=== PATIENT | female | born 1955 | race Caucasian/White ===

== ENCOUNTER → 2018-03-28 07:52 | Outpatient (CLI) | payer BC, SELFPAY ==
[2018-03-28 08:42] LABS: Alanine Aminotransferase 34 IU/L (9-52); Albumin 4.5 g/dL (3.5-5.0); Albumin Globulin Ratio 1.3 (1.0-2.8); Alkaline Phosphatase 76 U/L (38-126); Aspartate Aminotransferase 35 IU/L (14-36); BUN Creatinine Ratio 26.3 (6-22); Bilirubin Total 0.5 mg/dL (0.2-1.3); Blood Urea Nitrogen 21 mg/dL (7-17); Calcium 9.5 mg/dL (8.4-10.2); Carbon Dioxide 30 mmol/L (22-32); Chloride 103 mmol/L (98-107); Cholesterol 209 mg/dL (140-199); Estimated Glomerular Filt Rate > 60.0 mL/min (>60); Globulin 3.4 g/dL (1.7-4.1); Glucose 92 mg/dL (80-110); HDL Cholesterol 66 mg/dL (40-60); HEMOLYSIS < 15 (0-50); LDL Cholesterol Calculated 115 mg/dL (<100); Potassium 4.3 mmol/L (3.4-5.1); Sodium 141 mmol/L (137-145); Total Protein 7.9 g/dL (6.3-8.2); Triglycerides 138 mg/dL (35-150)
[2018-03-28 09:03] LABS: Vitamin D 25 Hydroxy (D3) 32.8 ng/mL (30.0-100.0)
== END ==
PROVIDERS: PCP Internal Medicine; Visit Provider Internal Medicine
DX: E55.9 Vitamin D deficiency, unspecified (principal); E78.5 Hyperlipidemia, unspecified; I10 Essential (primary) hypertension
CPT/HCPCS: 36415; 80053; 80061; 82306

== ENCOUNTER → 2018-04-30 09:28 | Outpatient (CLI) | payer BC, SELFPAY ==
--- NOTE | 2018-04-30 | DI.MG.S_ITS ---
BILATERAL DIGITAL SCREENING MAMMOGRAM 3D/2D WITH CAD: 04/30/2018 CLINICAL: Routine screening. Family history of breast cancer. Comparison is made to exams dated: 04/24/2017 mammogram, 04/18/2016 mammogram, and 04/13/2015 mammogram - [facility]. The tissue of both breasts is heterogeneously dense. This may lower the sensitivity of mammography. Current study was also evaluated with a Computer Aided Detection (CAD) system. There are benign calcifications in both breasts. There also are biopsy clips in the left breast. There is a mole marker on the right breast. No significant masses, calcifications, or other findings are seen in either breast. There has been no significant interval change. IMPRESSION: BENIGN There is no mammographic evidence of malignancy. A 1 year screening mammogram is recommended. This exam was interpreted at Station ID: [id number]. NOTE: For mammograms, a report in lay terms will be sent to the patient. Approximately 15% of breast malignancies will not be visualized mammographically. In the management of a palpable breast mass, a negative mammogram must not discourage biopsy of a clinically suspicious lesion. Electronically Signed By: Jasbir zhao/randall:05/02/2018 02:03:18 copy to: Dario Loving letter sent: Normal Exam ACR BI-RADS Category 2: Benign Finding(s) 3342F
== END ==
PROVIDERS: PCP Internal Medicine
DX: Z12.31 Encounter for screening mammogram for malignant neoplasm of breast (principal); Z80.3 Family history of malignant neoplasm of breast
CPT/HCPCS: 77063; 77067

== ENCOUNTER → 2018-09-05 14:05 | Outpatient (CLI) | payer BC, SELFPAY ==
[2018-09-05 15:13] LABS: Add Manual Diff / Slide Review NO; Basophils Absolute Auto 100 /uL (0-100); Basophils Percent Auto 1.1 % (0-2); Eosinophils Absolute Auto 100 /uL (0-450); Eosinophils Percent Auto 1.2 % (2-4); Hematocrit 45.2 % (36-46); Lymphocytes Absolute Auto 3300 /uL (1100-4500); Lymphocytes Percent Auto 38.7 % (25-40); Mean Corpuscular HGB Conc 33.3 % (30-36); Mean Corpuscular Hemoglobin 29.7 PG (26-34); Mean Corpuscular Volume 89.3 fL (80-100); Monocytes Absolute Auto 900 /uL (0-900); Monocytes Percent Auto 10.2 % (3-14); Neutrophils Absolute Auto 4100 /uL (1500-7000); Neutrophils Percent Auto 48.8 % (50-75); Platelet Count 298 X10^3/uL (150-400); Red Blood Cell Count 5.06 X10^6/uL (4.0-5.2); White Blood Cell Count 8.5 X10^3/uL (4.5-11.0)
[2018-09-05 15:27] LABS: Erythrocyte Sedimentation Rate 7 MM/HR (0-20)
[2018-09-05 16:18] LABS: Alanine Aminotransferase 41 IU/L (9-52); Albumin Globulin Ratio 1.3 (1.0-2.8); Alkaline Phosphatase 84 U/L (38-126); Aspartate Aminotransferase 32 IU/L (14-36); BUN Creatinine Ratio 22.5 (6-22); Bilirubin Total 0.4 mg/dL (0.2-1.3); Blood Urea Nitrogen 18 mg/dL (7-17); Calcium 10.1 mg/dL (8.4-10.2); Carbon Dioxide 26 mmol/L (22-32); Chloride 102 mmol/L (98-107); Estimated Glomerular Filt Rate > 60.0 mL/min (>60); Globulin 3.8 g/dL (1.7-4.1); Glucose 83 mg/dL (80-110); HEMOLYSIS < 15 (0-50); Potassium 4.4 mmol/L (3.4-5.1); Sodium 143 mmol/L (137-145); Total Protein 8.8 g/dL (6.3-8.2)
[2018-09-05 16:19] LABS: C-Reactive Protein Quant < 0.5 mg/dL (<1.0)
== END ==
PROVIDERS: PCP Internal Medicine; Visit Provider Internal Medicine
DX: R47.81 Slurred speech (principal); R51 Headache
CPT/HCPCS: 36415; 80053; 85025; 85651; 86140

== ENCOUNTER → 2018-09-08 11:11 | Outpatient (CLI) | payer BC, SELFPAY ==
--- NOTE | 2018-09-08 11:13 | DI.MRI.S_ITS ---
PROCEDURE: MR STROKE Pre- and post-contrast brain MRI, non-contrast brain MR angiogram, pre- and postcontrast neck MR angiogram INDICATIONS: slurred speech/headache TECHNIQUE: Brain: Noncontrast axial T1 spin echo, axial T2 fast spin echo, sagittal and axial FLAIR, coronal T2 fast spin echo, axial gradient echo, axial diffusion and ADC through the brain. After the administration of contrast, axial 3D VIBE of the cranial vasculature and brain. Brain MRA: Non-contrast 3-D time of flight MR angiogram, with multiple xefiwnb-uoumhoepf-ibqswogzpt (MIP) reformats performed. Neck MRA: Axial and sagittal TruFISP through the neck. Coronal dynamic MR angiogram during administration of contrast in the arterial and venous phases, with 3-dimenstional pfkdiaz-grnfbqufx-dsfaaygobm (MIP) reformats constructed from subtraction images. COMPARISON: None. FINDINGS: Image quality: Mildly degraded anteriorly by patient metal artifact in the facial area, possibly dental artifact. BRAIN: CSF spaces: Ventricles are normal in size and shape. Basal cisterns are patent. No extra-axial fluid collections. Brain: No intracranial bleeds or mass effects. Durant-white matter interface is normal. Diffusion weighted images show no acute ischemic insults. Brainstem appears normal. Normal intravascular flow voids are present. No abnormal intracranial enhancement. Mild microvascular atherosclerotic change noted in the deep white matter. Skull and face: Calvarial marrow signal is normal. Orbits appear normal. Sinuses: Sinuses and mastoids are clear. BRAIN MR ANGIOGRAM: Anterior circulation: Intracranial internal carotid arteries are normal in size and enhancement. The flow within the paired anterior cerebral arteries is normal and symmetric. The flow within the middle cerebral arteries is normal and symmetric. The anterior communicating artery is seen. No stenoses, occlusions, or aneurysms. Posterior circulation: The visualized portions of the vertebral arteries demonstrate normal caliber, and join to form a normal appearing basilar artery. The flow within the posterior cerebral arteries is normal and symmetric. No stenoses, occlusions, or aneurysms. NECK MR ANGIOGRAM: Carotids: Great vessels demonstrate a conventional anatomy as they arise from the aortic arch. The origins of the common carotid arteries appear patent. The calibers and courses of both common carotid arteries are normal. The bifurcation regions appear normal bilaterally. The internal carotid arteries demonstrate normal course and caliber. Posterior circulation: The origins of the vertebral arteries appear patent. More superior portions of both vertebral arteries demonstrate normal course and caliber, and join to form a normal appearing basilar artery. Miscellaneous: Subclavian arteries appear patent. Pre-contrast images through the neck show no soft tissue abnormalities. IMPRESSION: BRAIN MRI: Mild metal artifact degrades anterior visualization, but the study is diagnostic. There is only quite mild microvascular atherosclerotic change in the deep white matter, age-appropriate. No hemorrhage or acute/subacute ischemic injury is seen. BRAIN MR ANGIOGRAM: Normal intracranial MR angiogram. NECK MR ANGIOGRAM: Normal cervical MR angiogram. Dictated by: Jim Choi M.D. on 09/08/2018 at 12:49 Approved by: Jim Choi M.D. on 09/08/2018 at 12:51
== END ==
PROVIDERS: PCP Internal Medicine; Visit Provider Internal Medicine
DX: R47.81 Slurred speech (principal); R51 Headache
CPT/HCPCS: 70553

== ENCOUNTER → 2018-09-09 10:07 | Outpatient (CLI) | payer BC, SELFPAY ==
--- NOTE | 2018-09-09 10:10 | DI.US.S_ITS ---
PROCEDURE: US CAROTID DOPPLER BI INDICATIONS: SLURRED SPEECH, HEADACHE TECHNIQUE: Color and pulse Doppler interrogation was performed of both carotid systems, with image documentation and velocity measurements. COMPARISON: [facility], MR, MR STROKE, 09/08/2018, 11:48. FINDINGS: Stenosis calculations are based on SRU (Society of Radiologists in Ultrasound) criteria. Right side: Brachial blood pressure: 156/101 mm Hg. Common carotid artery peak systolic velocity: 66 cm/sec. Internal carotid artery peak systolic velocity: 74 cm/sec. Internal carotid artery end diastolic velocity: 29 cm/sec. External carotid artery peak systolic velocity: 73 cm/sec. ICA/CCA peak systolic ratio: 1.12. Durant scale imaging description: Minimal plaques Percent internal carotid artery stenosis: Less than 50%. Vertebral artery: Flow direction is antegrade. Left side: Brachial blood pressure: 129/85 mm Hg. Common carotid artery peak systolic velocity: 80 cm/sec. Internal carotid artery peak systolic velocity: 64 cm/sec. Internal carotid artery end diastolic velocity: 25 cm/sec. External carotid artery peak systolic velocity: 73 cm/sec. ICA/CCA peak systolic ratio: 0.81. Durant scale imaging description: Mild plaquing Percent internal carotid artery stenosis: Less than 50%. Vertebral artery: Not visualized. IMPRESSION: 1. Less than 50% internal carotid artery stenosis bilaterally. 2. Antegrade right vertebral artery flow. 3. The left vertebral artery is not visualized. Dictated by: Gabriella Linton M.D. on 09/09/2018 at 12:31 Approved by: Gabriella Linton M.D. on 09/09/2018 at 12:33
== END ==
PROVIDERS: PCP Internal Medicine; Visit Provider Internal Medicine
DX: I65.23 Occlusion and stenosis of bilateral carotid arteries (principal); R47.81 Slurred speech; R51 Headache
CPT/HCPCS: 93880

== ENCOUNTER → 2018-10-23 09:46 | Outpatient (CLI) | payer BC, SELFPAY ==
[2018-10-23 10:10] LABS: Hematocrit 43.5 % (36-46); Hemoglobin 14.4 g/dL (12.0-16.0); Mean Corpuscular HGB Conc 33.2 % (30-36); Mean Corpuscular Volume 90.4 fL (80-100); Platelet Count 335 X10^3/uL (150-400); Red Blood Cell Count 4.82 X10^6/uL (4.0-5.2); Red Cell Distribution Width 13.9 % (11.6-14.8)
[2018-10-23 10:14] LABS: Add Manual Diff / Slide Review YES
[2018-10-23 10:17] LABS: Prothrombin Time 11.1 SECONDS (10.1-12.7)
[2018-10-23 10:20] LABS: PTT Partial Thromboplastin Tim 28 SECONDS (26.4-36.2)
[2018-10-23 10:37] LABS: Neutrophils Absolute Manual 7800 /uL (3000-5900); Total Cells Counted 100
[2018-10-23 10:38] LABS: RBC Morphology Normal Morphology
== END ==
PROVIDERS: Family Provider Internal Medicine; PCP Internal Medicine; Visit Provider Psychiatry & Neurology Neurology
DX: K14.8 Other diseases of tongue (principal); R47.1 Dysarthria and anarthria; R51 Headache
CPT/HCPCS: 36415; 85025; 85610; 85730

== ENCOUNTER 2018-10-24 08:51 | Day surgery (SDC) | payer BC, SELFPAY ==
[2018-10-24] VITALS (9 sets, daily range): BP systolic 135–166; BP diastolic 78–100; PULSE 69–99; RESP 15–167; TEMP 36.5–37.1; O2SAT 95–99; BMI 24.3
--- NOTE | 2018-10-24 | DI.RAD.S_ITS ---
PROCEDURE: FL GUIDED LUMBAR PUNCTURE LP INDICATIONS: ... TECHNIQUE: The indications, alternatives, benefits, risks, and complications were explained to the patient. Written informed consent was obtained and placed in the chart. The patient was placed in a prone position on the fluoroscopy table, and a level was chosen for percutaneous access under fluoroscopic guidance. The site was prepped and draped in a sterile fashion. After local anaesthetic, a spinal needle was then used to enter the intrathecal space, with return of cerebrospinal fluid. After obtaining sufficient fluid, the needle was then withdrawn, and a bandage applied to the puncture site. FINDINGS: Puncture level: Right interlaminar notch L3-4 Needle: Spinal needle. Opening pressure: Not requested. CSF volume and description: 4 separate aliquots obtained, clear. Medications: 1% lidocaine for anaesthesia. Complications: None. Laboratories: As ordered by referring clinician. IMPRESSION: Successful fluoroscopically guided lumbar puncture. Dictated by: Jim Choi M.D. on 10/24/2018 at 14:27 Approved by: Jim Choi M.D. on 10/24/2018 at 14:28
--- NOTE | 2018-10-24 11:08 | SUR.PHASEII ---
Pt denied any new or worsening pain. Bandaid cdi. Denied nausea or vomiting. Call light within reach. Po intake provided.
[2018-10-24] MEDS: CODEINE/ACETAMINOPHEN 30/300 TABLET 1 TAB PO (11:14)
[2018-10-24 12:06] LABS: Glucose CSF 56 mg/dL (40-70); Total Protein CSF 53 mg/dL (12-60)
[2018-10-24 13:01] LABS: Appearance CSF CLEAR (Clear); CSF Tube Number 2; CSF Tube Volume 0.75 mL; Color CSF COLORLESS (Colorless); Red Blood Cell CSF 0 RBC /uL; White Blood Cell CSF 0 MONO/uL (0-5)
[2018-10-24 13:25] LABS: Enterovirus Not Detected (Not Detect); Escherichia coli K1 Not Detected (Not Detect); Herpes simplex virus 1 Not Detected (Not Detect); Herpes simplex virus 2 Not Detected (Not Detect); Human herpesvirus 6 Not Detected (Not Detect); Streptococcus pneumoniae Not Detected (Not Detect)
[2018-10-24 13:26] LABS: Cryptococcus neoformans/gattii Not Detected (Not Detect); Haemophilus influenzae Not Detected (Not Detect); Human parechovirus Not Detected (Not Detect); Listeria monocytogenes Not Detected (Not Detect); Neisseria meningitidis Not Detected (Not Detect); Streptococcus agalactiae Not Detected (Not Detect); Varicella Zoster Virus Not Detected
--- NOTE | 2018-10-24 15:19 | SUR.PHASEII ---
[facility] Pt denied any new pain or unusual symptoms. IV d/c'd. VS stable. Pt ambulated to bathroom, sba. Gait steady.
== END 2018-10-24 13:05 | disposition home or self-care (01) ==
PROVIDERS: PCP Internal Medicine; Visit Provider Psychiatry & Neurology Neurology
PROC: 009U3ZZ Drainage of Spinal Canal, Percutaneous Approach (ICD-10-PCS; principal; 2018-10-24 10:00)
DX: R51 Headache (principal); R47.1 Dysarthria and anarthria; K14.8 Other diseases of tongue
CPT/HCPCS: 62270; 76000; 82945; 84157; 86592; 87070; 87205; 87798; 87801; 89051

== ENCOUNTER → 2018-12-08 09:07 | Outpatient (CLI) | payer BC, SELFPAY ==
[2018-12-08 10:44] LABS: Estimated Glomerular Filt Rate > 60.0 mL/min (>60)
== END ==
PROVIDERS: Family Provider Internal Medicine; PCP Internal Medicine; Visit Provider Physician Assistant Surgical
DX: J39.2 Other diseases of pharynx (principal)
CPT/HCPCS: 36415; 82565

== ENCOUNTER → 2019-03-06 12:06 | Outpatient (CLI) | payer BC, SELFPAY ==
[2019-03-06 12:39] LABS: Bilirubin Urine UA NEGATIVE (NEGATIVE); Glucose Urine UA TRACE g/dL (Negative); Ketones Urine UA NEGATIVE (NEGATIVE); Leukocyte Esterase Urine UA 2+ (NEGATIVE); Nitrite Urine UA POSITIVE (Negative); Occult Blood Urine UA TRACE-INTACT (Negative); Protein Urine UA 1+ (Negative); Specific Gravity Urine UA 1.015 (1.000-1.035)
[2019-03-06 13:07] LABS: Appearance Urine UA Cloudy
[2019-03-06 13:08] LABS: Color Urine UA ORANGE
[2019-03-06 13:09] LABS: Bacteria Urine Few (2-10); Culture Indicated Urine Specimen Cultured; RBC Urine 1-5/HPF (0-5/HPF); Squamous Epithelial Cell Urine 1-5 /HPF (0-5/HPF); WBC Urine 10-30/HPF (0-5/HPF)
== END ==
PROVIDERS: PCP Internal Medicine; Visit Provider Internal Medicine
DX: R39.89 Other symptoms and signs involving the genitourinary system (principal)
CPT/HCPCS: 81001; 87077; 87086; 87186

== ENCOUNTER → 2019-06-03 10:55 | Outpatient (CLI) | payer BC, SELFPAY ==
--- NOTE | 2019-06-03 | DI.MG.S_ITS ---
BILATERAL DIGITAL SCREENING MAMMOGRAM 3D/2D WITH CAD: 06/03/2019 CLINICAL: Routine screening. Family history of breast cancer. Comparison is made to exams dated: 04/30/2018 mammogram, 04/24/2017 mammogram, 04/18/2016 mammogram, and 04/13/2015 mammogram - [facility]. The tissue of both breasts is heterogeneously dense. This may lower the sensitivity of mammography. Current study was also evaluated with a Computer Aided Detection (CAD) system. There are linear scar markers overlying the left breast. There are circular mole markers overlying the left breast. Biopsy/surgical clips are present in the left breast. There is an irregular asymmetry in the right breast anterior depth central to the nipple seen on the craniocaudal view only. There is an irregular asymmetry in the right breast posterior depth medial region seen on the craniocaudal view only. There is an irregular asymmetry in the left breast middle depth lateral region seen on the craniocaudal view only. IMPRESSION: INCOMPLETE: NEEDS ADDITIONAL IMAGING EVALUATION The irregular asymmetry in the right breast anterior depth central to the nipple seen on the craniocaudal view only is indeterminate. Additional views with possible ultrasound are recommended. The irregular asymmetry in the right breast posterior depth medial region seen on the craniocaudal view only is indeterminate. Additional views with possible ultrasound are recommended. The irregular asymmetry in the left breast middle depth lateral region seen on the craniocaudal view only is indeterminate. Additional views with possible ultrasound are recommended. This exam was interpreted at Station ID: [id number]. NOTE: For mammograms, a report in lay terms will be sent to the patient. Approximately 15% of breast malignancies will not be visualized mammographically. In the management of a palpable breast mass, a negative mammogram must not discourage biopsy of a clinically suspicious lesion. Electronically Signed By: Jasbir Atkinson M.D. ecl/:06/03/2019 13:12:33 copy to: Dario Loving copy to: Nando Damon letter sent: Additional Imaging Needed ACR BI-RADS Category 0: Incomplete 3340F
== END ==
PROVIDERS: PCP Internal Medicine; Visit Provider Student in an Organized Health Care Education/Training Program
DX: Z12.31 Encounter for screening mammogram for malignant neoplasm of breast (principal); Z80.3 Family history of malignant neoplasm of breast
CPT/HCPCS: 77063; 77067

== ENCOUNTER → 2019-06-29 08:38 | Outpatient (CLI) | payer BC, SELFPAY ==
--- NOTE | 2019-06-29 08:38 | DI.MG.S_ITS ---
BILATERAL DIGITAL DIAGNOSTIC MAMMOGRAM 3D/2D WITH ADDITIONAL VIEWS: 06/29/2019 CLINICAL: Additional evaluation requested from prior study. Comparison is made to exams dated: 06/03/2019 mammogram, 04/30/2018 mammogram, and 04/24/2017 mammogram - [facility]. The tissue of both breasts is heterogeneously dense. This may lower the sensitivity of mammography. Previously noted irregular asymmetry in the right breast anterior depth central to the nipple seen on the craniocaudal view only on comparison screening mammogram of 06/03/19 has the appearance of benign fibroglandular tissues on additional views. Previously noted irregular asymmetry in the right breast posterior depth medial region seen on the craniocaudal view only on comparison screening mammogram of 06/03/19 has the appearance of benign fibroglandular tissues on additional views. Previously noted irregular asymmetry in the left breast middle depth lateral region seen on the craniocaudal view only on comparison screening mammogram of 06/03/19 has the appearance of benign fibroglandular tissues on additional views. A linear scar marker overlies the left breast. Surgical/biopsy clips are identified in the left breast. IMPRESSION: INCOMPLETE: NEEDS ADDITIONAL IMAGING EVALUATION Previously noted irregular asymmetry in the right breast anterior depth central to the nipple seen on the craniocaudal view only on comparison screening mammogram of 06/03/19 has the appearance of benign fibroglandular tissues on additional views. A targeted ultrasound is recommended and will be performed immediately following this exam. Previously noted irregular asymmetry in the right breast posterior depth medial region seen on the craniocaudal view only on comparison screening mammogram of 06/03/19 has the appearance of benign fibroglandular tissues on additional views. A targeted ultrasound is recommended and will be performed immediately following this exam. Previously noted irregular asymmetry in the left breast middle depth lateral region seen on the craniocaudal view only on comparison screening mammogram of 06/03/19 has the appearance of benign fibroglandular tissues on additional views. A targeted ultrasound is recommended and will be performed immediately following this exam. This exam was interpreted at Station ID: [id number]. NOTE: For mammograms, a report in lay terms will be sent to the patient. Approximately 15% of breast malignancies will not be visualized mammographically. In the management of a palpable breast mass, a negative mammogram must not discourage biopsy of a clinically suspicious lesion. Electronically Signed By: Jasbir Atkinson M.D. ecl/:06/29/2019 13:12:15 copy to: Dario Loving ACR BI-RADS Category 0: Incomplete 3340F
--- NOTE | 2019-06-29 08:38 | DI.US.S_ITS ---
LIMITED ULTRASOUND OF RIGHT BREAST: 06/29/2019 CLINICAL: Patient returns today to evaluate asymmetries in the right breast. Comparison is made to exams dated: 06/29/2019 mammogram, 06/03/2019 mammogram, 04/30/2018 mammogram, 04/24/2017 mammogram, and 04/18/2016 mammogram - [facility]. Color flow and real-time ultrasound of the medial and lateral right breast including four quadrants were performed. Durant scale images of the real-time examination were reviewed. No underlying breast mass or abnormality is identified. There is no ultrasound correlate for the previously noted irregular asymmetry in the right breast anterior depth central to the nipple seen on the craniocaudal view only on comparison screening mammogram of 06/03/19, which also resolved and had the appearance of benign fibroglandular tissues on additional diagnostic mammogram views performed earlier today 06/29/19. There is no ultrasound correlate for the previously noted irregular asymmetry in the right breast posterior depth medial region seen on the craniocaudal view only on comparison screening mammogram of 06/03/19, which also resolved and had the appearance of benign fibroglandular tissues on additional diagnostic mammogram views performed earlier today 06/29/19. IMPRESSION: NEGATIVE There is no sonographic evidence of malignancy in the imaged areas of the right breast. Return to annual screening mammography schedule is recommended. The patient is advised to monitor her breasts and to return sooner for re-evaluation should she feel anything grow or change. This exam was interpreted at Station ID: [id number]. Electronically Signed By: Jasbir Atkinson M.D. ecl/:06/29/2019 14:04:33 copy to: Dario Loving letter sent: Normal Exam Ultrasound BI-RADS: 1 Negative
--- NOTE | 2019-06-29 08:38 | DI.US.S_ITS ---
LIMITED ULTRASOUND OF LEFT BREAST: 06/29/2019 CLINICAL: Patient returns today to evaluate an asymmetry in the left breast. Comparison is made to exams dated: 06/29/2019 mammogram, 06/03/2019 mammogram, 04/30/2018 mammogram, and 04/24/2017 mammogram - [facility]. Color flow and real-time ultrasound of the left breast 2-4 o'clock region were performed. Durant scale images of the real-time examination were reviewed. No underlying breast mass or abnormality is identified. There is no ultrasound correlate for the previously noted asymmetry in the left breast middle depth lateral region seen on the craniocaudal view only on comparison screening mammogram of 06/03/19 which resolved and had the appearance of benign fibroglandular tissues on additional views performed earlier today 06/29/19. IMPRESSION: NEGATIVE There is no sonographic evidence of malignancy in the imaged areas of the lateral left breast. Return to annual screening mammography schedule is recommended. The patient is advised to monitor her breasts and to return sooner for re-evaluation should she feel anything grow or change. This exam was interpreted at Station ID: [id number]. Electronically Signed By: Jasbir Atkinson M.D. ecl/:06/29/2019 14:06:38 copy to: Dario Loving letter sent: Normal Exam Ultrasound BI-RADS: 1 Negative
== END ==
PROVIDERS: PCP Internal Medicine; Visit Provider Internal Medicine
DX: R92.8 Other abnormal and inconclusive findings on diagnostic imaging of breast (principal); N64.89 Other specified disorders of breast
CPT/HCPCS: 76642; 77066; G0279

== ENCOUNTER → 2020-03-21 11:07 | Outpatient (CLI) | payer BC, SELFPAY | PROVIDERS: PCP Internal Medicine; Visit Provider Registered Nurse Diabetes Educator | DX: R30.0 Dysuria (principal) | CPT/HCPCS: 87077; 87086; 87186 ==

== ENCOUNTER → 2020-06-30 07:37 | Outpatient (CLI) | payer MEDICARE, SELFPAY ==
[2020-06-30 10:10] LABS: Alanine Aminotransferase 31 IU/L (<35); Albumin 4.4 g/dL (3.5-5.0); Albumin Globulin Ratio 1.4 (1.0-2.8); Alkaline Phosphatase 81 U/L (38-126); Aspartate Aminotransferase 33 IU/L (14-36); BUN Creatinine Ratio 22.4 (6-22); Bilirubin Total 0.6 mg/dL (0.2-1.3); Blood Urea Nitrogen 17 mg/dL (7-17); Calcium 9.7 mg/dL (8.4-10.2); Carbon Dioxide 31 mmol/L (22-32); Chloride 105 mmol/L (98-107); Cholesterol 180 mg/dL (140-199); Estimated Glomerular Filt Rate > 60.0 mL/min (>60); Globulin 3.2 g/dL (1.7-4.1); Glucose 90 mg/dL (80-110); HDL Cholesterol 49 mg/dL (40-60); HEMOLYSIS < 15 (0-50); LDL Cholesterol Calculated 91 mg/dL (<100); Potassium 4.6 mmol/L (3.4-5.1); Sodium 140 mmol/L (137-145); Total Protein 7.6 g/dL (6.3-8.2); Triglycerides 198 mg/dL (35-150)
[2020-06-30 10:22] LABS: Free T4, Direct Thyroxine 0.89 ng/dL (0.78-2.19); Vitamin D 25 Hydroxy (D3) 36.6 ng/mL (30.0-100.0)
[2020-06-30 10:36] LABS: Thyroid Stimulating Hormone 1.17 uIU/mL (0.47-4.68)
== END ==
PROVIDERS: PCP Internal Medicine; Referring Provider Internal Medicine; Visit Provider Internal Medicine
DX: E03.9 Hypothyroidism, unspecified (principal); E55.9 Vitamin D deficiency, unspecified; E78.5 Hyperlipidemia, unspecified; G52.3 Disorders of hypoglossal nerve; I10 Essential (primary) hypertension
CPT/HCPCS: 36415; 80053; 80061; 82306; 84439; 84443

== ENCOUNTER → 2020-07-01 11:06 | Outpatient (CLI) | payer MEDICARE, SELFPAY ==
--- NOTE | 2020-07-01 | DI.MG.S_ITS ---
BILATERAL DIGITAL SCREENING MAMMOGRAM 3D/2D WITH CAD: 07/01/2020 CLINICAL: Routine screening. Family history of breast cancer. Comparison is made to exams dated: 06/29/2019 mammogram, 06/03/2019 mammogram, and 04/30/2018 mammogram - [facility]. The tissue of both breasts is heterogeneously dense. This may lower the sensitivity of mammography. Current study was also evaluated with a Computer Aided Detection (CAD) system. No significant masses, calcifications, or other findings are seen in either breast. There has been no significant interval change. IMPRESSION: NEGATIVE There is no mammographic evidence of malignancy. A 1 year screening mammogram is recommended. This exam was interpreted at Station ID: [id number]. NOTE: For mammograms, a report in lay terms will be sent to the patient. Approximately 15% of breast malignancies will not be visualized mammographically. In the management of a palpable breast mass, a negative mammogram must not discourage biopsy of a clinically suspicious lesion. Electronically Signed By: Lissette graham/randall:07/01/2020 13:18:22 copy to: Dario Loving letter sent: Normal Exam ACR BI-RADS Category 1: Negative 3341F
== END ==
PROVIDERS: PCP Internal Medicine; Referring Provider Internal Medicine; Visit Provider Internal Medicine
DX: Z12.31 Encounter for screening mammogram for malignant neoplasm of breast (principal)
CPT/HCPCS: 77063; 77067

== ENCOUNTER → 2020-07-05 11:45 | Outpatient (CLI) | payer MEDICARE, SELFPAY ==
[2020-07-05 12:16] LABS: Bacteria Urine None Seen; RBC Urine None Seen (0-5/HPF)
[2020-07-05 16:53] LABS: Appearance Urine UA CLEAR; Bilirubin Urine UA NEGATIVE (NEGATIVE); Color Urine UA YELLOW; Glucose Urine UA NEGATIVE (Negative); Ketones Urine UA NEGATIVE (NEGATIVE); Leukocyte Esterase Urine UA NEGATIVE (NEGATIVE); Nitrite Urine UA NEGATIVE (Negative); Occult Blood Urine UA NEGATIVE (Negative); Protein Urine UA NEGATIVE (Negative); Specific Gravity Urine UA 1.015 (1.000-1.035); Urobilinogen Urine UA 0.2 E.U./dL (0.2)
[2020-07-05 17:02] LABS: Culture Indicated Urine Cult Not Indicated; Mucus Urine 1+ (Negative); Squamous Epithelial Cell Urine 0-1 /HPF (0-5/HPF); WBC Urine 0-1/HPF (0-5/HPF)
== END ==
PROVIDERS: PCP Internal Medicine; Referring Provider Internal Medicine; Visit Provider Internal Medicine
DX: R30.0 Dysuria (principal)
CPT/HCPCS: 81001

== ENCOUNTER → 2020-08-17 10:31 | Outpatient (CLI) | payer MEDICARE, SELFPAY | PROVIDERS: PCP Internal Medicine; Visit Provider Nurse Practitioner | DX: N39.0 Urinary tract infection, site not specified (principal) | CPT/HCPCS: 87086 ==

== ENCOUNTER → 2020-09-23 10:30 | Outpatient (CLI) | payer MEDICARE, SELFPAY ==
[2020-09-23] MEDS: COVID-19 VACC #1, MRNA(MOD) 100 MCG/0.5 ML VIAL IM (10:35)
== END ==
PROVIDERS: PCP Internal Medicine; Visit Provider Internal Medicine
DX: Z23 Encounter for immunization (principal)
CPT/HCPCS: 0011A; 91301

== ENCOUNTER → 2020-10-20 13:14 | Outpatient (CLI) | payer MEDICARE, SELFPAY ==
[2020-10-20] MEDS: COVID-19 VACC #2, MRNA(MOD) 100 MCG/0.5 ML VIAL IM (13:17)
== END ==
PROVIDERS: Family Provider Internal Medicine; PCP Internal Medicine; Visit Provider Internal Medicine
DX: Z23 Encounter for immunization (principal)
CPT/HCPCS: 0012A; 91301

== ENCOUNTER → 2020-11-10 10:22 | Outpatient (CLI) | payer MEDICARE, SELFPAY ==
--- NOTE | 2020-11-10 10:23 | DI.RAD.S_ITS ---
PROCEDURE: XR ANKLE LT MIN 3V INDICATIONS: left ankle pain TECHNIQUE: 3 views of the ankle were acquired. COMPARISON: None. FINDINGS: Bones: No fracture. Plantar and posterior calcaneal spurring. Diffuse hindfoot and midfoot degenerative spurring and sclerosis. There is anatomic alignment. Soft tissues: No tibiotalar joint effusion. Achilles tendon appears normal. IMPRESSION: Degenerative changes as above. If the patient's pain or other symptoms persist, consider further evaluation with MRI Dictated by: Josh Arroyo M.D. on 11/10/2020 at 11:21 Approved by: Josh Arroyo M.D. on 11/10/2020 at 11:26
== END ==
PROVIDERS: Family Provider Internal Medicine; PCP Internal Medicine; Referring Provider Internal Medicine; Visit Provider Internal Medicine
DX: M25.572 Pain in left ankle and joints of left foot (principal); M77.32 Calcaneal spur, left foot
CPT/HCPCS: 73610

== ENCOUNTER 2020-11-28 13:30 | Outpatient (RCR) | payer MEDICARE, SELFPAY ==
--- NOTE | 2020-11-04 16:15 | PT.OPPOC ---
Physical, Occupational & Speech Therapy At [facility] Current Diagnoses Uterovaginal prolapse, unspecified (11/04/20) Unspecified urinary incontinence (11/04/20) Visit Care Team Role Provider Type Nando Damon MD Family Provider Physician Primary Care Provider Specialty: Internal Medicine Address: [address] [place] [address], [address], [place], [address] Email: [email or web address] Maria De Jesus Stafford MD Attending Provider Physician Referring Provider Specialty: V[employer]ER [employer]ER Address: [address] [place] [address], [id number] Email: Plan Of Care PT-OP-T Assessment and Plan Start: 11/04/20 08:16 Freq: Status: Active Protocol: Document 11/04/20 08:15 AMB (Rec: 11/04/20 16:14 AMB [id number]) Physical Therapy Assessment Rehab Potential Rehabilitation Potential Good Evaluation Complexity Number of Personal Factors/Comorbidities 1-2 Clinical Presentation at Evaluation Evolving Impairments Impairments Activity Tolerance,Functional Activities,Strength Goals Two Impairment Prolapse Short Term Goal (STG) Kaitlin will manage her constipation so that she no longer needs to bear down to have a bowel movement to reduce her risk for continue prolapse progression. STG Duration 4 weeks Processing Supervisor Goal (LTG) Kaitlin will be independent with a HEP to prevent further progression of her prolapse. LTG Duration 8 weeks One Impairment Pelvic floor strength Short Term Goal (STG) Kaitlin will improve her pelvic floor strength to 3/5 or better in all planes. STG Duration 4 weeks Halfway Goal (LTG) Kaitlin will lift 20# from floor to waist height while performing a kegel. LTG Duration 8 weeks Assessment Summary Assessment Kaitlin attends physical therapy with worsening symptoms of chronic prolapse. She is trying to avoid surgery if possible. She would benefit from physical therapy to improve her pelvic floor strength, give her behavioral management techniques for her urgency, and avoid progression of her prolapse. Physical Therapy Plan Frequency and Duration Frequency of Treatment 1x/Week Duration of Treatment 8 weeks Plan of Care Start Date 11/04/20 Plan of Care End Date 12/30/20 Therapeutic Interventions Therapeutic Interventions Home Exercise Program,Manual Therapy,Neuromuscular Re- education,Self-Care/Home Management,Therapeutic Activities,Therapeutic Exercises Modalities Biofeedback,Cold Pack/Ice Massage,Electric Stimulation Next Visit Focus/Plan Next Note Type Treatment Note Next Visit Plan sEMG, progress strengthening, follow up on urge reduction techniques Plan of Care Dates Plan of Care Start Date 11/04/20 Plan of Care End Date 12/30/20 Electronically Signed by: Lucy Cardenas, PT 11/04/20 [id number] Please Sign and Return: I have reviewed this Plan of Care and certify that the skilled therapy services above are required to meet the patient?s needs. Physician Signature Date Printed Name and Credentials Clinical Instructor Signature Printed Name and Credentials
--- NOTE | 2020-11-04 16:15 | PT.OIE ---
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) Pelvic floor weakness (2004) Precancerous skin lesion Prolapsed bladder (2004) Prolapsed uterus (2004) Rectal prolapse (2004) TMJ (temporomandibular joint syndrome) (1979) Urinary incontinence Uterovaginal prolapse, unspecified (12/06/11) Vertigo (2013) Past Surgical History (Last Reviewed 10/04/20 @ 14:50 by Maria De Jesus Stafford MD) History of breast surgery (1987) History of colonoscopy (08/2017) History of gynecologic surgery History of gynecologic surgery History of urinary tract surgery (~1960) Visit Care Team Role Provider Type Nando Damon MD Family Provider Physician Primary Care Provider Specialty: Internal Medicine Address: [address] [place] [address], [facility] [address] [place] [address] Email: [email or web address] Maria De Jesus Stafford MD Attending Provider Physician Referring Provider Specialty: APPRENTICE [employer] DIRECTOR Address: [address] [place] [address] Email: Physical Therapy Initial Evaluation PT-OP-A Visit Information Start: 11/04/20 08:16 Freq: Status: Active Protocol: Document 11/04/20 08:15 AMB (Rec: 11/04/20 09:38 AMB [email or web address]) Out-Patient Physical Therapy Visit Information Visit Information Visit Type Initial Evaluation Visit Start Time 08:15 Visit Stop Time 09:00 Total Visit Minutes 45 Visit Number 1 PT-OP-B Current Condition Start: 11/04/20 08:16 Freq: Status: Active Protocol: Document 11/04/20 08:15 AMB (Rec: 11/04/20 09:38 AMB [email or web address]) Current Condition History of Current Condition Onset Date 15 years, worse over last year Current Complaints prolapse, urgency, constipation History of Current Condition Kaitlin has used a pessary for 15 years, and recently had difficulty using it becasue of rectal pressure. She had 3 large internal hemerhoids banded and that has helped, but she is hoping to avoid surgery. She had two vaginal deliveries and chronic constipation. Treatment Goals Patient/Caregiver Goals learn how to do kegels, reduce urgency, improve prolapse Personal Factors Other Personal Factors That May Effect urgency (sees toilet and leaks Therapy/Recovery ), denies stress incontinence PT-OP-C Subjective Start: 11/04/20 08:16 Freq: Status: Active Protocol: Document 11/04/20 08:15 AMB (Rec: 11/04/20 09:38 AMB [email or web address]) Patient Questionnaires Pelvic Pain and Urgency/Frequency Patient Symptom Scale Pelvic Pain Score 18 PT-OP-I Pelvic Floor Start: 11/04/20 08:16 Freq: Status: Active Protocol: Document 11/04/20 08:15 AMB (Rec: 11/04/20 09:38 AMB [email or web address]) Pelvic Floor Assessment Urine Pelvic Floor Surgery No Urinary Symptoms Urge Sensation,Prolapse, Falling Out Feeling/Heavy Leakage Size Medium Leakage Cause Urge Voiding Frequency 2-3 hours Nocturia 2 Urine Pad Type Panty Liner Bowel Bowel Symptoms Constipation,Fecal Leakage Prolapse Uterine Prolapse Grade 3 Cystocele Grade 1 Rectocele Grade 1 Perineal Descent Resting Absent Bearing Present Contraction Ability Voluntary Contraction Weak Voluntary Relaxation Moderate Manual Muscle Testing Left 2 Manual Muscle Testing Right 2 Manual Muscle Testing Anterior 2 Manual Muscle Testing Posterior 3 Muscle Endurance (Seconds) 5 Number of Quick Contractions In 10 4 Seconds PT-OP-T Assessment and Plan Start: 11/04/20 08:16 Freq: Status: Active Protocol: Document 11/04/20 08:15 AMB (Rec: 11/04/20 16:14 AMB [email or web address]) Physical Therapy Assessment Rehab Potential Rehabilitation Potential Good Evaluation Complexity Number of Personal Factors/Comorbidities 1-2 Clinical Presentation at Evaluation Evolving Impairments Impairments Activity Tolerance,Functional Activities,Strength Goals Two Impairment Prolapse Short Term Goal (STG) Kaitlin will manage her constipation so that she no longer needs to bear down to have a bowel movement to reduce her risk for continue prolapse progression. STG Duration 4 weeks Supervisor Partial Denture Department Goal (LTG) Kaitlin will be independent with a HEP to prevent further progression of her prolapse. LTG Duration 8 weeks One Impairment Pelvic floor strength Short Term Goal (STG) Kaitlin will improve her pelvic floor strength to 3/5 or better in all planes. STG Duration 4 weeks Supervisor Partial Denture Department Goal (LTG) Kaitlin will lift 20# from floor to waist height while performing a kegel. LTG Duration 8 weeks Assessment Summary Assessment Kaitlin attends physical therapy with worsening symptoms of chronic prolpase. She is trying to avoid surgery if possible. She would benefit from physical therapy to improve her pelvic floor strength, give her behavioral management techniques for her urgency, and avoid progression of her prolapse. Physical Therapy Plan Frequency and Duration Frequency of Treatment 1x/Week Duration of Treatment 8 weeks Plan of Care Start Date 11/04/20 Plan of Care End Date 12/30/20 Therapeutic Interventions Therapeutic Interventions Home Exercise Program,Manual Therapy,Neuromuscular Re- education,Self-Care/Home Management,Therapeutic Activities,Therapeutic Exercises Modalities Biofeedback,Cold Pack/Ice Massage,Electric Stimulation Next Visit Focus/Plan Next Note Type Treatment Note Next Visit Plan sEMG, progress strengthening, follow up on urge reduction techniques
--- NOTE | 2020-11-08 09:03 | PT.OTN ---
Current Diagnoses Uterovaginal prolapse, unspecified (11/08/20) Unspecified urinary incontinence (11/08/20) Physical Therapy Treatment Note PT-OP-A Visit Information Start: 11/04/20 08:16 Freq: Status: Active Protocol: Document 11/08/20 08:20 AMB (Rec: 11/08/20 09:02 AMB [id number]) Out-Patient Physical Therapy Visit Information Visit Information Visit Type Treatment Note Visit Start Time 08:15 Visit Stop Time 09:00 Total Visit Minutes 45 Visit Number 2 PT-OP-B Current Condition Start: 11/04/20 08:16 Freq: Status: Active Protocol: Document 11/04/20 08:15 AMB (Rec: 11/04/20 09:38 AMB [email or web address]) Current Condition History of Current Condition Onset Date 15 years, worse over last year Current Complaints prolapse, urgency, constipation History of Current Condition Kaitlin has used a pessary for 15 years, and recently had difficulty using it becasue of rectal pressure. She had 3 large internal hemerhoids banded and that has helped, but she is hoping to avoid surgery. She had two vaginal deliveries and chronic constipation. Treatment Goals Patient/Caregiver Goals learn how to do kegels, reduce urgency, improve prolapse Personal Factors Other Personal Factors That May Effect urgency (sees toilet and leaks Therapy/Recovery ), denies stress incontinence PT-OP-C Subjective Start: 11/04/20 08:16 Freq: Status: Active Protocol: Document 11/08/20 08:20 AMB (Rec: 11/08/20 09:02 AMB [id number]) OP-PT Subjective Patient Comments Patient Comments Pt is hoping to d/c use of her OAB med so will be using urge reduction techniques to help with that. PT-OP-I Pelvic Floor Start: 11/04/20 08:16 Freq: Status: Active Protocol: Document 11/04/20 08:15 AMB (Rec: 11/04/20 09:38 AMB [email or web address]) Pelvic Floor Assessment Urine Pelvic Floor Surgery No Urinary Symptoms Urge Sensation,Prolapse, Falling Out Feeling/Heavy Leakage Size Medium Leakage Cause Urge Voiding Frequency 2-3 hours Nocturia 2 Urine Pad Type Panty Liner Bowel Bowel Symptoms Constipation,Fecal Leakage Prolapse Uterine Prolapse Grade 3 Cystocele Grade 1 Rectocele Grade 1 Perineal Descent Resting Absent Bearing Present Contraction Ability Voluntary Contraction Weak Voluntary Relaxation Moderate Manual Muscle Testing Left 2 Manual Muscle Testing Right 2 Manual Muscle Testing Anterior 2 Manual Muscle Testing Posterior 3 Muscle Endurance (Seconds) 5 Number of Quick Contractions In 10 4 Seconds PT-OP-Q Treatments Start: 11/04/20 08:16 Freq: Status: Active Protocol: Document 11/08/20 08:20 AMB (Rec: 11/08/20 09:02 AMB [id number]) Neuro Re-Education Treatment Other Activities 1 Details sEMG Comments pt with difficulty coordination of breathing and ignacio, but otherwise did well PT-OP-T Assessment and Plan Start: 11/04/20 08:16 Freq: Status: Active Protocol: Document 11/08/20 08:20 AMB (Rec: 11/08/20 09:02 AMB [id number]) Physical Therapy Assessment Assessment Summary Assessment Pt had max 21.7. avg 10.6. Physical Therapy Plan Next Visit Focus/Plan Next Visit Plan sEMG, progress functional strengthening
--- NOTE | 2020-11-14 14:31 | PT.OTN ---
Current Diagnoses Uterovaginal prolapse, unspecified (11/14/20) Unspecified urinary incontinence (11/14/20) Physical Therapy Treatment Note PT-OP-A Visit Information Start: 11/04/20 08:16 Freq: Status: Active Protocol: Document 11/14/20 08:15 AMB (Rec: 11/14/20 09:00 AMB [id number]) Out-Patient Physical Therapy Visit Information Visit Information Visit Type Treatment Note Visit Start Time 08:15 Visit Stop Time 09:00 Total Visit Minutes 45 Visit Number 3 PT-OP-B Current Condition Start: 11/04/20 08:16 Freq: Status: Active Protocol: Document 11/04/20 08:15 AMB (Rec: 11/04/20 09:38 AMB [email or web address]) Current Condition History of Current Condition Onset Date 15 years, worse over last year Current Complaints prolapse, urgency, constipation History of Current Condition Kaitlin has used a pessary for 15 years, and recently had difficulty using it becasue of rectal pressure. She had 3 large internal hemerhoids banded and that has helped, but she is hoping to avoid surgery. She had two vaginal deliveries and chronic constipation. Treatment Goals Patient/Caregiver Goals learn how to do kegels, reduce urgency, improve prolapse Personal Factors Other Personal Factors That May Effect urgency (sees toilet and leaks Therapy/Recovery ), denies stress incontinence PT-OP-C Subjective Start: 11/04/20 08:16 Freq: Status: Active Protocol: Document 11/08/20 08:20 AMB (Rec: 11/08/20 09:02 AMB [id number]) OP-PT Subjective Patient Comments Patient Comments Pt is hoping to d/c use of her OAB med so will be using urge reduction techniques to help with that. PT-OP-I Pelvic Floor Start: 11/04/20 08:16 Freq: Status: Active Protocol: Document 11/04/20 08:15 AMB (Rec: 11/04/20 09:38 AMB [email or web address]) Pelvic Floor Assessment Urine Pelvic Floor Surgery No Urinary Symptoms Urge Sensation,Prolapse, Falling Out Feeling/Heavy Leakage Size Medium Leakage Cause Urge Voiding Frequency 2-3 hours Nocturia 2 Urine Pad Type Panty Liner Bowel Bowel Symptoms Constipation,Fecal Leakage Prolapse Uterine Prolapse Grade 3 Cystocele Grade 1 Rectocele Grade 1 Perineal Descent Resting Absent Bearing Present Contraction Ability Voluntary Contraction Weak Voluntary Relaxation Moderate Manual Muscle Testing Left 2 Manual Muscle Testing Right 2 Manual Muscle Testing Anterior 2 Manual Muscle Testing Posterior 3 Muscle Endurance (Seconds) 5 Number of Quick Contractions In 10 4 Seconds PT-OP-Q Treatments Start: 11/04/20 08:16 Freq: Status: Active Protocol: Document 11/14/20 08:15 AMB (Rec: 11/14/20 09:00 AMB [id number]) Therapeutic Exercises Supine Exercises 1 Supine Exercise Name roll in exercise Reps/Minutes 10 Neuro Re-Education Treatment Other Activities 1 Details sEMG Comments pt with difficulty coordination of breathing and ignacio, but otherwise did well PT-OP-T Assessment and Plan Start: 11/04/20 08:16 Freq: Status: Active Protocol: Document 11/14/20 08:15 AMB (Rec: 11/14/20 09:00 AMB [id number]) Physical Therapy Assessment Assessment Summary Assessment Avg 14.3, better today. Roll in exercises went well. Physical Therapy Plan Next Visit Focus/Plan Next Note Type Treatment Note Next Visit Plan Progress HEP, follow up on roll in exercises
--- NOTE | 2020-11-21 11:01 | PT.OTN ---
Current Diagnoses Uterovaginal prolapse, unspecified (11/21/20) Unspecified urinary incontinence (11/21/20) Physical Therapy Treatment Note PT-OP-A Visit Information Start: 11/04/20 08:16 Freq: Status: Active Protocol: Document 11/21/20 10:15 AMB (Rec: 11/21/20 10:55 AMB [id number]) Out-Patient Physical Therapy Visit Information Visit Information Visit Type Treatment Note Visit Start Time 10:15 Visit Stop Time 11:00 Total Visit Minutes 45 Visit Number 4 PT-OP-B Current Condition Start: 11/04/20 08:16 Freq: Status: Active Protocol: Document 11/04/20 08:15 AMB (Rec: 11/04/20 09:38 AMB [email or web address]) Current Condition History of Current Condition Onset Date 15 years, worse over last year Current Complaints prolapse, urgency, constipation History of Current Condition Kaitlin has used a pessary for 15 years, and recently had difficulty using it becasue of rectal pressure. She had 3 large internal hemerhoids banded and that has helped, but she is hoping to avoid surgery. She had two vaginal deliveries and chronic constipation. Treatment Goals Patient/Caregiver Goals learn how to do kegels, reduce urgency, improve prolapse Personal Factors Other Personal Factors That May Effect urgency (sees toilet and leaks Therapy/Recovery ), denies stress incontinence PT-OP-C Subjective Start: 11/04/20 08:16 Freq: Status: Active Protocol: Document 11/21/20 10:15 AMB (Rec: 11/21/20 10:55 AMB [id number]) OP-PT Subjective Patient Comments Patient Comments Pt is going to try to get a different pessary, but if she can't find one that supports bladder a bit more then she will likely consider surgery. PT-OP-I Pelvic Floor Start: 11/04/20 08:16 Freq: Status: Active Protocol: Document 11/04/20 08:15 AMB (Rec: 11/04/20 09:38 AMB [email or web address]) Pelvic Floor Assessment Urine Pelvic Floor Surgery No Urinary Symptoms Urge Sensation,Prolapse, Falling Out Feeling/Heavy Leakage Size Medium Leakage Cause Urge Voiding Frequency 2-3 hours Nocturia 2 Urine Pad Type Panty Liner Bowel Bowel Symptoms Constipation,Fecal Leakage Prolapse Uterine Prolapse Grade 3 Cystocele Grade 1 Rectocele Grade 1 Perineal Descent Resting Absent Bearing Present Contraction Ability Voluntary Contraction Weak Voluntary Relaxation Moderate Manual Muscle Testing Left 2 Manual Muscle Testing Right 2 Manual Muscle Testing Anterior 2 Manual Muscle Testing Posterior 3 Muscle Endurance (Seconds) 5 Number of Quick Contractions In 10 4 Seconds PT-OP-Q Treatments Start: 11/04/20 08:16 Freq: Status: Active Protocol: Document 11/21/20 10:15 AMB (Rec: 11/21/20 10:55 AMB [id number]) Therapeutic Exercises Standing Exercises 1 Standing Exercise Name partial squat Reps/Minutes 2x10 Comments with pelvic floor Neuro Re-Education Treatment Other Activities 1 Details sEMG Comments pt with better breathing and coordination todayand ignacio, but otherwise did well PT-OP-T Assessment and Plan Start: 11/04/20 08:16 Freq: Status: Active Protocol: Document 11/21/20 10:15 AMB (Rec: 11/21/20 10:55 AMB [id number]) Physical Therapy Assessment Assessment Summary Assessment Average of 19 with 10 second holds. Standing exercises were challenging. Physical Therapy Plan Next Visit Focus/Plan Next Note Type Treatment Note Next Visit Plan Progress HEP, follow up on roll in exercises
--- NOTE | 2020-11-28 15:13 | PT.OTN ---
Current Diagnoses Uterovaginal prolapse, unspecified (11/28/20) Unspecified urinary incontinence (11/28/20) Physical Therapy Treatment Note PT-OP-A Visit Information Start: 11/04/20 08:16 Freq: Status: Active Protocol: Document 11/28/20 13:30 AMB (Rec: 11/28/20 14:19 AMB [id number]) Out-Patient Physical Therapy Visit Information Visit Information Visit Type Treatment Note Visit Start Time 13:30 Visit Stop Time 14:15 Total Visit Minutes 45 Visit Number 5 PT-OP-B Current Condition Start: 11/04/20 08:16 Freq: Status: Active Protocol: Document 11/04/20 08:15 AMB (Rec: 11/04/20 09:38 AMB [email or web address]) Current Condition History of Current Condition Onset Date 15 years, worse over last year Current Complaints prolapse, urgency, constipation History of Current Condition Kaitlin has used a pessary for 15 years, and recently had difficulty using it becasue of rectal pressure. She had 3 large internal hemerhoids banded and that has helped, but she is hoping to avoid surgery. She had two vaginal deliveries and chronic constipation. Treatment Goals Patient/Caregiver Goals learn how to do kegels, reduce urgency, improve prolapse Personal Factors Other Personal Factors That May Effect urgency (sees toilet and leaks Therapy/Recovery ), denies stress incontinence PT-OP-C Subjective Start: 11/04/20 08:16 Freq: Status: Active Protocol: Document 11/28/20 13:30 AMB (Rec: 11/28/20 14:19 AMB [id number]) OP-PT Subjective Patient Comments Patient Comments Pt is ready for discharge. PT-OP-I Pelvic Floor Start: 11/04/20 08:16 Freq: Status: Active Protocol: Document 11/04/20 08:15 AMB (Rec: 11/04/20 09:38 AMB [email or web address]) Pelvic Floor Assessment Urine Pelvic Floor Surgery No Urinary Symptoms Urge Sensation,Prolapse, Falling Out Feeling/Heavy Leakage Size Medium Leakage Cause Urge Voiding Frequency 2-3 hours Nocturia 2 Urine Pad Type Panty Liner Bowel Bowel Symptoms Constipation,Fecal Leakage Prolapse Uterine Prolapse Grade 3 Cystocele Grade 1 Rectocele Grade 1 Perineal Descent Resting Absent Bearing Present Contraction Ability Voluntary Contraction Weak Voluntary Relaxation Moderate Manual Muscle Testing Left 2 Manual Muscle Testing Right 2 Manual Muscle Testing Anterior 2 Manual Muscle Testing Posterior 3 Muscle Endurance (Seconds) 5 Number of Quick Contractions In 10 4 Seconds PT-OP-Q Treatments Start: 11/04/20 08:16 Freq: Status: Active Protocol: Document 11/28/20 13:30 AMB (Rec: 11/28/20 15:11 AMB [email or web address]) Therapeutic Exercises Standing Exercises 2 Standing Exercise Name standing pelvic floor contract Comments with education to avoid bearing down 1 Standing Exercise Name partial squat- sit to stand Reps/Minutes 2x10 Comments with pelvic floor PT-OP-T Assessment and Plan Start: 11/04/20 08:16 Freq: Status: Active Protocol: Document 11/28/20 13:30 AMB (Rec: 11/28/20 14:19 AMB [id number]) Physical Therapy Assessment Goals Two Impairment Prolapse Short Term Goal (STG) Kaitlin will manage her constipation so that she no longer needs to bear down to have a bowel movement to reduce her risk for continue prolapse progression. STG Duration MET Assisted Goal (LTG) Kaitlin will be independent with a HEP to prevent further progression of her prolapse. LTG Duration MET One Impairment Pelvic floor strength Short Term Goal (STG) Kaitlin will improve her pelvic floor strength to 3/5 or better in all planes. STG Duration 4 weeks Assisted Goal (LTG) Kaitlin will lift 20# from floor to waist height while performing a kegel. LTG Duration MET Assessment Summary Assessment Kaitlin has done well with PT . She still needs her pessary , and is continuing to consider surgery. She feels like she is ready to be discharged at this time, she continuing to do her exercises , and bought an over the counter biofeedback unit that she can use independently. She would be welcome to return if needed in the future, but has met her goals to her satisfaction at this point. Physical Therapy Plan Discharge Physical Therapy Discharge Reasons Goals Met
== END 2020-11-29 08:35 | disposition home or self-care (01) ==
LOC: PHYS 13:30
PROVIDERS: Family Provider Internal Medicine; PCP Internal Medicine; Referring Provider Obstetrics & Gynecology; Visit Provider Obstetrics & Gynecology
DX: N81.4 Uterovaginal prolapse, unspecified (principal); R32 Unspecified urinary incontinence
CPT/HCPCS: 97110; 97112; 97162

== ENCOUNTER → 2021-06-26 07:34 | Outpatient (CLI) | payer MEDICARE, SELFPAY ==
[2021-06-26 09:19] LABS: Alanine Aminotransferase 33 IU/L (<35); Albumin 4.5 g/dL (3.5-5.0); Albumin Globulin Ratio 1.3 (1.0-2.8); Alkaline Phosphatase 68 U/L (38-126); Aspartate Aminotransferase 33 IU/L (14-36); BUN Creatinine Ratio 20.7 (6-22); Bilirubin Total 0.5 mg/dL (0.2-1.3); Blood Urea Nitrogen 17 mg/dL (7-17); Calcium 9.5 mg/dL (8.4-10.2); Carbon Dioxide 29 mmol/L (22-32); Chloride 106 mmol/L (98-107); Cholesterol 169 mg/dL (140-199); Estimated Glomerular Filt Rate > 60.0 mL/min (>60); Globulin 3.4 g/dL (1.7-4.1); Glucose 98 mg/dL (80-110); HDL Cholesterol 44 mg/dL (40-60); HEMOLYSIS < 15 (0-50); LDL Cholesterol Calculated 98 mg/dL (<100); Potassium 4.4 mmol/L (3.4-5.1); Sodium 141 mmol/L (137-145); Total Protein 7.9 g/dL (6.3-8.2); Triglycerides 134 mg/dL (35-150)
[2021-06-26 09:51] LABS: Thyroid Stimulating Hormone 0.869 uIU/mL (0.47-4.68)
== END ==
PROVIDERS: Family Provider Internal Medicine; PCP Internal Medicine; Referring Provider Internal Medicine; Visit Provider Internal Medicine
DX: E03.9 Hypothyroidism, unspecified (principal); I10 Essential (primary) hypertension; E78.5 Hyperlipidemia, unspecified
CPT/HCPCS: 36415; 80053; 80061; 84439; 84443

== ENCOUNTER → 2021-07-04 16:40 | Outpatient (CLI) | payer MEDICARE, SELFPAY ==
--- NOTE | 2021-07-04 | DI.MG.S_ITS ---
BILATERAL DIGITAL SCREENING MAMMOGRAM 3D/2D WITH CAD: 07/04/2021 CLINICAL: Routine screening. Family history of breast cancer. Comparison is made to exams dated: 07/01/2020 mammogram, 06/29/2019 mammogram, and 06/03/2019 mammogram - [facility]. The tissue of both breasts is heterogeneously dense. This may lower the sensitivity of mammography. Current study was also evaluated with a Computer Aided Detection (CAD) system. There are benign post operative findings in the left breast. No significant masses, calcifications, or other findings are seen in either breast. There has been no significant interval change. IMPRESSION: BENIGN There is no mammographic evidence of malignancy. A 1 year screening mammogram is recommended. This exam was interpreted at Station ID: [id number]. NOTE: For mammograms, a report in lay terms will be sent to the patient. Approximately 15% of breast malignancies will not be visualized mammographically. In the management of a palpable breast mass, a negative mammogram must not discourage biopsy of a clinically suspicious lesion. Electronically Signed By: Marilin blancas/randall:07/04/2021 17:08:12 copy to: Dario Loving letter sent: Normal Exam ACR BI-RADS Category 2: Benign Finding(s) [id number]
== END ==
PROVIDERS: Family Provider Internal Medicine; PCP Internal Medicine; Referring Provider Internal Medicine; Visit Provider Internal Medicine
DX: Z12.31 Encounter for screening mammogram for malignant neoplasm of breast (principal); Z80.3 Family history of malignant neoplasm of breast
CPT/HCPCS: 77063; 77067

== ENCOUNTER → 2022-02-28 08:21 | Outpatient (CLI) | payer MEDICARE, SELFPAY ==
[2022-02-28 10:01] LABS: Alanine Aminotransferase 32 IU/L (<35); Albumin 4.3 g/dL (3.5-5.0); Albumin Globulin Ratio 1.4 (1.0-2.8); Alkaline Phosphatase 69 U/L (38-126); Aspartate Aminotransferase 36 IU/L (14-36); BUN Creatinine Ratio 19.8 (6-22); Bilirubin Total 0.6 mg/dL (0.2-1.3); Blood Urea Nitrogen 16 mg/dL (7-17); Calcium 9.2 mg/dL (8.4-10.2); Carbon Dioxide 27 mmol/L (22-32); Chloride 105 mmol/L (98-107); Cholesterol 178 mg/dL (140-199); Estimated Glomerular Filt Rate > 60 mL/min (>60); Glucose 95 mg/dL (80-110); HDL Cholesterol 50 mg/dL (40-60); HEMOLYSIS < 15 (0-50); LDL Cholesterol Calculated 90 mg/dL (<100); Potassium 4.6 mmol/L (3.4-5.1); Sodium 140 mmol/L (137-145); Total Protein 7.3 g/dL (6.3-8.2); Triglycerides 190 mg/dL (35-150)
[2022-03-01 03:21] LABS: Free T4, Direct Thyroxine 0.95 ng/dL (0.78-2.19)
== END ==
PROVIDERS: Family Provider Internal Medicine; PCP Internal Medicine; Referring Provider Internal Medicine; Visit Provider Internal Medicine
DX: E03.9 Hypothyroidism, unspecified (principal); E78.5 Hyperlipidemia, unspecified; I10 Essential (primary) hypertension
CPT/HCPCS: 36415; 80053; 80061; 84439; 84443

== ENCOUNTER → 2022-07-06 11:09 | Outpatient (CLI) | payer MEDICARE, SELFPAY ==
--- NOTE | 2022-07-06 11:11 | DI.MG.S_ITS ---
BILATERAL DIGITAL SCREENING MAMMOGRAM 3D/2D WITH CAD: 07/06/2022 CLINICAL: Routine screening. Family history of breast cancer. Comparison is made to exams dated: 07/04/2021 mammogram, 07/01/2020 mammogram, and 06/29/2019 mammogram - [facility]. Both breasts are heterogeneously dense, which may obscure small masses (category c / 51-75% glandular tissue). Current study was also evaluated with a Computer Aided Detection (CAD) system. There are benign calcifications in both breasts. There also are benign post operative findings in the left breast. There is a mole marker on the right breast. No significant masses, calcifications, or other findings are seen in either breast. There has been no significant interval change. IMPRESSION: BENIGN There is no mammographic evidence of malignancy. A 1 year screening mammogram is recommended. Based on the Tyrer Cuzick model (a risk assessment model) the patient's lifetime risk is 10.9% and her 10 year risk is 5.8%. According to the ACR, ACS, and NCCN guidelines, an annual breast MRI exam along with mammogram is recommended if the patient's lifetime risk is 20% or greater. This exam was interpreted at Station ID: [id number]. NOTE: For mammograms, a report in lay terms will be sent to the patient. Approximately 15% of breast malignancies will not be visualized mammographically. In the management of a palpable breast mass, a negative mammogram must not discourage biopsy of a clinically suspicious lesion. Electronically Signed By: Orlando Teixeira M.D. acr/penrad:07/06/2022 11:42:35 copy to: Dario Loving letter sent: Normal Exam ACR BI-RADS Category 2: Benign Finding(s) [id number]
== END ==
PROVIDERS: Family Provider Internal Medicine; PCP Internal Medicine; Referring Provider Internal Medicine; Visit Provider Internal Medicine
DX: Z12.31 Encounter for screening mammogram for malignant neoplasm of breast (principal); Z80.3 Family history of malignant neoplasm of breast
CPT/HCPCS: 77063; 77067

== ENCOUNTER → 2023-01-21 07:16 | Outpatient (CLI) | payer MEDICARE, SELFPAY ==
[2023-01-21 08:50] LABS: Alanine Aminotransferase 29 IU/L (<35); Albumin 4.3 g/dL (3.5-5.0); Albumin Globulin Ratio 1.4 (1.0-2.8); Alkaline Phosphatase 71 U/L (38-126); Aspartate Aminotransferase 30 IU/L (14-36); BUN Creatinine Ratio 23.1 (6-22); Bilirubin Total 0.6 mg/dL (0.2-1.3); Blood Urea Nitrogen 18 mg/dL (7-17); Calcium 9.2 mg/dL (8.4-10.2); Carbon Dioxide 27 mmol/L (22-32); Chloride 105 mmol/L (98-107); Cholesterol 165 mg/dL (140-199); Estimated Glomerular Filt Rate > 60 mL/min (>60); Globulin 3.1 g/dL (1.7-4.1); Glucose 91 mg/dL (80-110); HDL Cholesterol 53 mg/dL (40-60); HEMOLYSIS < 15 (0-50); LDL Cholesterol Calculated 83 mg/dL (<100); Potassium 4.1 mmol/L (3.4-5.1); Sodium 139 mmol/L (137-145); Total Protein 7.4 g/dL (6.3-8.2); Triglycerides 144 mg/dL (35-150)
[2023-01-21 09:05] LABS: Free T4, Direct Thyroxine 0.95 ng/dL (0.78-2.19)
[2023-01-21 09:19] LABS: Thyroid Stimulating Hormone 0.967 uIU/mL (0.47-4.68)
== END ==
PROVIDERS: Family Provider Internal Medicine; PCP Internal Medicine; Referring Provider Internal Medicine; Visit Provider Internal Medicine
DX: E03.9 Hypothyroidism, unspecified (principal); E78.5 Hyperlipidemia, unspecified; I10 Essential (primary) hypertension
CPT/HCPCS: 36415; 80053; 80061; 84439; 84443

== ENCOUNTER → 2023-04-16 17:10 | Outpatient (CLI) | payer MEDICARE, SELFPAY | PROVIDERS: Family Provider Internal Medicine; PCP Internal Medicine; Visit Provider Obstetrics & Gynecology | DX: N39.41 Urge incontinence (principal) | CPT/HCPCS: 87077; 87086; 87186 ==

== ENCOUNTER 2023-04-19 10:23 | Emergency (ER) | payer MEDICARE, SELFPAY ==
[2023-04-19] VITALS (26 sets, daily range): BP systolic 131–169; BP diastolic 68–81; PULSE 55–94; RESP 14; TEMP 36.4; O2SAT 92–97; BMI 24.7
[2023-04-19] MEDS: ONDANSETRON 4 MG/2 ML INJ IV (10:51)
[2023-04-19] MEDS: PANTOPRAZOLE 40 MG VIAL 80 MG IV (10:51)
[2023-04-19 10:55] LABS: Add Manual Diff / Slide Review NO; Basophils Absolute Auto 100 /uL (0-100); Basophils Percent Auto 0.7 % (0-2); Eosinophils Absolute Auto 100 /uL (0-450); Eosinophils Percent Auto 0.9 % (2-4); Hematocrit 41.9 % (36-46); Hemoglobin 14.4 g/dL (12.0-16.0); Lymphocytes Absolute Auto 2300 /uL (1100-4500); Lymphocytes Percent Auto 29.3 % (25-40); Mean Corpuscular HGB Conc 34.4 % (30-36); Mean Corpuscular Hemoglobin 30.1 PG (26-34); Mean Corpuscular Volume 87.7 fL (80-100); Monocytes Absolute Auto 700 /uL (0-900); Monocytes Percent Auto 9.5 % (3-14); Neutrophils Absolute Auto 4600 /uL (1500-7000); Neutrophils Percent Auto 59.6 % (50-75); Platelet Count 191 X10^3/uL (150-400); Red Blood Cell Count 4.78 X10^6/uL (4.0-5.2); Red Cell Distribution Width 13.2 % (11.6-14.8); White Blood Cell Count 7.7 X10^3/uL (4.5-11.0)
[2023-04-19 11:08] LABS: INR 1.1 (0.9-1.3); Prothrombin Time 12.1 SECONDS (10.1-12.7)
[2023-04-19 11:09] LABS: Alanine Aminotransferase 28 IU/L (<35); Albumin 4.4 g/dL (3.5-5.0); Albumin Globulin Ratio 1.3 (1.0-2.8); Alkaline Phosphatase 61 U/L (38-126); Aspartate Aminotransferase 32 IU/L (14-36); Bilirubin Total 0.6 mg/dL (0.2-1.3); Blood Urea Nitrogen 18 mg/dL (7-17); Calcium 9.1 mg/dL (8.4-10.2); Carbon Dioxide 24 mmol/L (22-32); Chloride 106 mmol/L (98-107); Estimated Glomerular Filt Rate > 60 mL/min (>60); Globulin 3.5 g/dL (1.7-4.1); Glucose 101 mg/dL (80-110); HEMOLYSIS 29 (0-50); Sodium 139 mmol/L (137-145); Total Protein 7.9 g/dL (6.3-8.2)
[2023-04-19 11:10] LABS: PTT Partial Thromboplastin Tim 29 SECONDS (26-36)
--- NOTE | 2023-04-19 12:59 | ED.GIBLEED ---
HPI - GI Bleed General Chief complaint: GI Bleed Stated complaint: sent by PCP for rectal bleeding Time Seen by Provider: 04/19/23 10:24 Source: patient Mode of arrival: Ambulatory History of Present Illness HPI Narrative: 67-year-old female nonsmoker with history of IBS and hyperlipidemia presents at the request of her primary care provider for evaluation of the chief complaint of abdominal pain and bright red blood per rectum. She states that she had been in her normal state of health until Saturday when she had some fatty, sweet foods which she admittedly nose better than to consume given her history of IBS. That night she developed severe abdominal cramping and the passage of bright red blood in her rectum. Over the course of the following day she had the leakage of bright red blood in the abdominal pain had largely subsided. She would called her primary care provider and was encouraged to present to the emergency department for evaluation. She is currently under the care of gynecology for evaluation of rectocele and was evaluated a few days ago and was found to have an asymptomatic UTI and has taken 1 dose of nitrofurantoin but otherwise denies the use of antibiotics, exposure to bad food or travel. She states the pain has subsided, she is not dizzy nor weak or lightheaded, she denies any chest pain or shortness of breath. She does not take any blood thinners or antiplatelet agents. She states her last colonoscopy was about 3 years ago and she was told that she had widespread diverticulosis and had a few internal hemorrhoids banded Related Data Home Medications Medication Instructions Recorded Confirmed cholecalciferol (vitamin D3) 25 3,000 unit PO DAILY ##0 12/18/12 04/16/23 mcg (1,000 unit) capsule (Vitamin D3) ascorbate calcium (vitamin C) 500 500 mg PO DAILY 06/06/20 04/16/23 mg tablet propylene glycol [Systane Balance] 1 drp ophthalmic (eye) BID 02/22/22 04/16/23 Previous Rx's Medication Instructions Recorded diltiazem HCl 180 mg 180 mg PO DAILY #90 caps 05/22/22 capsule,extended release 24 hr (Cartia XT) mirabegron 25 mg tablet,extended See Rx Instructions .Route 09/12/22 release 24 hr (Myrbetriq) .COMPLEX #90 tabs CMP Estradiol Vaginal Cream 0.011% See Rx Instructions .Route 11/19/22 .COMPLEX #30 grams atorvastatin 20 mg tablet (Lipitor) 20 mg PO HS #90 tabs 03/15/23 levothyroxine 75 mcg tablet 75 mcg PO DAILY #90 tabs 03/15/23 (Synthroid) lisinopril 10 mg tablet 10 mg PO QDAY #90 tabs 03/15/23 nitrofurantoin 100 mg PO BID UTI 5 days #10 caps 04/18/23 monohydrate/macrocrystals 100 mg capsule (Macrobid) amoxicillin 875 mg-potassium 1 tab PO Q12H #20 tabs 04/19/23 clavulanate 125 mg tablet Allergies Allergy/AdvReac Type Severity Reaction Status Date / Time No Known Drug Allergies Allergy Verified 04/19/23 10:31 Review of Systems Review of Systems Narrative: GENERAL: Denies chills, fatigue, malaise, fever, sweats. HEENT: Denies sinus pain, ear pain, sore throat, difficulty swallowing, dizziness. RESPIRATORY: Denies dyspnea, cough, wheezing, hemoptysis, sputum. CARDIOVASCULAR: Denies chest pain, palpitations, orthopnea, edema, GASTROINTESTINAL: See HPI : Denies dysuria, frequency, incontinence, hematuria, urinary retention. MUSCULOSKELETAL: denies weakness, joint pain, or bony pain SKIN: Denies rash, skin lesions, or other NEUROLOGIC: Denies weakness, headache, numbness, change in speech, confusion, seizures, incoordination. PSYCHIATRIC: No concerning psychosocial issues. 12 point review of systems is negative except for those stated above Patient History Medical History Acquired hypothyroidism (12/06/11) Cardiac arrhythmia Depression (08/27/14) Diverticulosis of colon (10/04/17) Ear pain, left Fibroids (1987) Hayfever (1969) Heart murmur (1989) Hyperlipidemia (12/06/11) Hypertension (12/06/11) IBS (irritable bowel syndrome) (1979) Irritable bowel syndrome with diarrhea (07/07/15) Lactose intolerance in adult (07/07/15) Liver disease Other chronic nonalcoholic liver disease (08/19/00) Pelvic floor weakness (2004) Precancerous skin lesion Prolapsed bladder (2004) Prolapsed uterus (2004) Rectal prolapse (2004) TMJ (temporomandibular joint syndrome) (1979) Urinary incontinence Uterovaginal prolapse, unspecified (12/06/11) Vertigo (2013) Surgical History History of breast surgery (1987) History of colonoscopy (08/2017) History of urinary tract surgery (~1960) Family History Father Cancer Bladder cancer Mother Heart disease Hypertension Mental health problem Melanoma Alzheimer's disease Congestive heart failure Sister Chapo-Creutzfeldt disease Grandfather Flu Grandmother Flu Grandfather No problems noted. Grandmother Stroke Social History marital status: number of children: 2 household members: spouse lives independently: Yes caregiver/support person: No housing: house pets and animals: Yes education level: college occupational status: employed travel history: over 6 months ago leisure activities: exercise and other Smoking Status: Never smoker Tobacco: How many years used: 0 quit status: quit date established second hand exposure: No alcohol intake: current substance use type: does not use Smoking Status: Never smoker alcohol intake frequency: holidays/special occasions only Substance Use Type: does not use Exam Narrative Exam Narrative: GENERAL: [67] year old patient appears stated age. Well-developed patient, in mild distress. HEAD: Atraumatic. Normocephalic. EYES: Pupils equal round and reactive. Extraocular motions intact. No scleral icterus. No injection or drainage. ENT: Nose without bleeding, purulent drainage. Throat without erythema, tonsillar hypertrophy or exudate. Airway patent. NECK: Trachea midline. Non tender CARDIOVASCULAR: Regular rate and rhythm without murmurs, gallops, or rubs. RESPIRATORY: Clear to auscultation. Breath sounds equal bilaterally. No wheezes, rales, or rhonchi. GASTROINTESTINAL: Abdomen soft, non-tender, nondistended. EXTREMITIES: No edema or joint tenderness. BACK: Nontender without deformity or crepitance. No flank tenderness. NEURO: AOx3. SKIN: No rash or erythema of visible areas Initial Vital Signs Initial Vital Signs: Vital Signs Temperature 97.6 F 04/19/23 10:24 Pulse Rate 89 04/19/23 10:24 Respiratory Rate 14 04/19/23 10:24 Blood Pressure 169/81 H 04/19/23 10:24 Pulse Oximetry 96 04/19/23 10:24 Oxygen Delivery Method Room Air 04/19/23 10:24 Course Orders Ordered: Discontinued Medications Ondansetron HCl (Ondansetron 4 Mg/2 Ml Inj) 4 mg IV NOW PRN PRN Reason: Nausea And Vomiting Last Admin: 04/19/23 10:51 Dose: 4 mg Documented By: LILLY Pantoprazole Sodium (Pantoprazole 40 Mg Vial) 80 mg IV NOW ONE Stop: 04/19/23 10:30 Last Admin: 04/19/23 10:51 Dose: 80 mg Documented By: LILLY Vital Signs Vital signs: Vital Signs - 8 hr 04/19/23 12:00 04/19/23 12:15 04/19/23 12:30 Pulse Rate 61 61 62 Blood Pressure Pulse Oximetry 94 96 95 04/19/23 12:45 04/19/23 12:46 04/19/23 12:46 Pulse Rate 67 66 Blood Pressure 140/79 Pulse Oximetry 96 95 04/19/23 13:00 04/19/23 13:15 04/19/23 14:27 Pulse Rate 61 58 L 56 L Blood Pressure Pulse Oximetry 94 94 94 04/19/23 14:30 04/19/23 14:45 04/19/23 15:00 Pulse Rate 55 L 55 L 56 L Blood Pressure Pulse Oximetry 96 95 95 04/19/23 15:15 04/19/23 15:30 04/19/23 15:45 Pulse Rate 57 L 58 L 55 L Blood Pressure Pulse Oximetry 95 95 95 04/19/23 16:00 04/19/23 16:15 04/19/23 16:20 Pulse Rate 60 56 L 62 Blood Pressure Pulse Oximetry 97 95 96 04/19/23 16:20 Pulse Rate Blood Pressure 139/68 Pulse Oximetry MDM - GI Bleed Lab Data 04/19/23 14:23 04/19/23 10:45 Labs: Lab Results 04/19/23 04/19/23 04/19/23 Range/Units 10:31 10:45 10:45 WBC 7.7 (4.5-11.0) X10^3/uL RBC 4.78 (4.0-5.2) X10^6/uL Hgb 14.4 (12.0-16.0) g/dL Hct 41.9 (36-46) % MCV 87.7 (80-100) fL MCH 30.1 (26-34) PG MCHC 34.4 (30-36) % RDW 13.2 (11.6-14.8) % Plt Count 191 (150-400) X10^3/uL Neut % (Auto) 59.6 (50-75) % Lymph % (Auto) 29.3 (25-40) % [place] % (Auto) 9.5 (3-14) % Eos % (Auto) 0.9 L (2-4) % Baso % (Auto) 0.7 (0-2) % Neut # (Auto) 4600 (4057-2195) /uL Lymph # (Auto) 2300 (1962-9843) /uL [place] # (Auto) 700 (0-900) /uL Eos # (Auto) 100 (0-450) /uL Baso # (Auto) 100 (0-100) /uL PT 12.1 (10.1-12.7) SECONDS INR 1.1 (0.9-1.3) APTT 29 (26-36) SECONDS Sodium (137-145) mmol/L Potassium (3.4-5.1) mmol/L Chloride (98-107) mmol/L Carbon Dioxide (22-32) mmol/L BUN (7-17) mg/dL Creatinine (0.52-1.04) mg/dL Estimated GFR (>60) mL/min BUN/Creatinine Ratio (6-22) Glucose (80-110) mg/dL Calcium (8.4-10.2) mg/dL Total Bilirubin (0.2-1.3) mg/dL AST (14-36) IU/L ALT (<35) IU/L Alkaline Phosphatase (38-126) U/L Total Protein (6.3-8.2) g/dL Albumin (3.5-5.0) g/dL Globulin (1.7-4.1) g/dL Albumin/Globulin Ratio (1.0-2.8) Urine Color Urine Appearance Urine pH (4.5-8.0) Ur Specific [place] (1.000-1.035) Urine Protein (Negative) Urine Glucose (UA) (Negative) g/dL Urine Ketones (NEGATIVE) Urine Occult Blood (Negative) Urine Nitrate (Negative) Urine Bilirubin (NEGATIVE) Urine Urobilinogen (0.2) E.U./dL Ur Leukocyte Esterase (NEGATIVE) Urine RBC (0-5/HPF) Urine WBC (0-5/HPF) Ur Squamous Epith Cells (0-5/HPF) Urine Bacteria (None) Ur Culture Indicated? Micro UA Comment Stl C. cayetanensis PCR Not detected (Not Detect) Stool Rotavirus (PCR) Not detected (Not Detect) Stool Adenovirus (PCR) Not detected (Not Detect) Stool Astrovirus (PCR) Not detected (Not Detect) Stool Cryptosporidium PCR Not detected (Not Detect) Stl E.coli Shiga Tox PCR Not detected (Not Detect) St Sh/Enteroin Ecoli PCR Not detected (Not Detect) Stool E coli O157 PCR Not detected (Not Detect) Stl Enterotoxigenic E PCR Not detected (Not Detect) Stool EPEC (PCR) Not detected (Not Detect) Stl E. histolytica PCR Not detected (Not Detect) Stool Giardia Lamblia PCR Not detected (Not Detect) Stool Sapovirus (PCR) Not detected (Not Detect) Stl P. shigelloides PCR Not detected (Not Detect) St Y.enterocolitica PCR Not detected (Not Detect) Stool Vibrio (PCR) Not detected (Not Detect) Stl Vibrio cholerae PCR Not detected (Not Detect) Stl Enteroaggr Ecoli PCR Not detected (Not Detect) Stl Norovirus GI/GII PCR Not detected (Not Detect) Campylobacter (PCR) Not detected (Not Detect) C. difficile Tox (PCR) Not detected (Not Detect) Salmonella (PCR) Not detected (Not Detect) 04/19/23 04/19/23 04/19/23 Range/Units 10:45 13:30 14:23 WBC (4.5-11.0) X10^3/uL RBC (4.0-5.2) X10^6/uL Hgb 13.5 (12.0-16.0) g/dL Hct 39.8 (36-46) % MCV (80-100) fL MCH (26-34) PG MCHC (30-36) % RDW (11.6-14.8) % Plt Count (150-400) X10^3/uL Neut % (Auto) (50-75) % Lymph % (Auto) (25-40) % [place] % (Auto) (3-14) % Eos % (Auto) (2-4) % Baso % (Auto) (0-2) % Neut # (Auto) (7447-1168) /uL Lymph # (Auto) (0743-6379) /uL [place] # (Auto) (0-900) /uL Eos # (Auto) (0-450) /uL Baso # (Auto) (0-100) /uL PT (10.1-12.7) SECONDS INR (0.9-1.3) APTT (26-36) SECONDS Sodium 139 (137-145) mmol/L Potassium 4.0 (3.4-5.1) mmol/L Chloride 106 (98-107) mmol/L Carbon Dioxide 24 (22-32) mmol/L BUN 18 H (7-17) mg/dL Creatinine 0.75 (0.52-1.04) mg/dL Estimated GFR > 60 (>60) mL/min BUN/Creatinine Ratio 24.0 H (6-22) Glucose 101 (80-110) mg/dL Calcium 9.1 (8.4-10.2) mg/dL Total Bilirubin 0.6 (0.2-1.3) mg/dL AST 32 (14-36) IU/L ALT 28 (<35) IU/L Alkaline Phosphatase 61 (38-126) U/L Total Protein 7.9 (6.3-8.2) g/dL Albumin 4.4 (3.5-5.0) g/dL Globulin 3.5 (1.7-4.1) g/dL Albumin/Globulin Ratio 1.3 (1.0-2.8) Urine Color Yellow Urine Appearance Clear Urine pH 5.5 (4.5-8.0) Ur Specific [place] 1.010 (1.000-1.035) Urine Protein Negative (Negative) Urine Glucose (UA) Negative (Negative) g/dL Urine Ketones Negative (NEGATIVE) Urine Occult Blood Negative (Negative) Urine Nitrate Negative (Negative) Urine Bilirubin Negative (NEGATIVE) Urine Urobilinogen 0.2 (0.2) E.U./dL Ur Leukocyte Esterase Negative (NEGATIVE) Urine RBC None seen (0-5/HPF) Urine WBC None seen (0-5/HPF) Ur Squamous Epith Cells None seen (0-5/HPF) Urine Bacteria None seen (None) Ur Culture Indicated? Cult not indicated Micro UA Comment Microscopic normal Stl C. cayetanensis PCR (Not Detect) Stool Rotavirus (PCR) (Not Detect) Stool Adenovirus (PCR) (Not Detect) Stool Astrovirus (PCR) (Not Detect) Stool Cryptosporidium PCR (Not Detect) Stl E.coli Shiga Tox PCR (Not Detect) St Sh/Enteroin Ecoli PCR (Not Detect) Stool E coli O157 PCR (Not Detect) Stl Enterotoxigenic E PCR (Not Detect) Stool EPEC (PCR) (Not Detect) Stl E. histolytica PCR (Not Detect) Stool Giardia Lamblia PCR (Not Detect) Stool Sapovirus (PCR) (Not Detect) Stl P. shigelloides PCR (Not Detect) St Y.enterocolitica PCR (Not Detect) Stool Vibrio (PCR) (Not Detect) Stl Vibrio cholerae PCR (Not Detect) Stl Enteroaggr Ecoli PCR (Not Detect) Stl Norovirus GI/GII PCR (Not Detect) Campylobacter (PCR) (Not Detect) C. difficile Tox (PCR) (Not Detect) Salmonella (PCR) (Not Detect) Point of Care Testing Stool Occult Blood Positive MDM Narrative Medical decision making narrative: CC: 67-year-old female with resolved pelvic cramping and now ongoing painless bright red blood Complicating co-morbidities: IBS, age greater than 50 Data collected from: Patient Medical records reviewed: Prior notes reviewed in our EMR Differential considered, but not limited to: Internal hemorrhoid versus diverticular bleed versus infectious diarrhea versus other Exam documented above, pertinent findings include: Heart rate regular, lungs clear, abdomen soft, bowel sounds present Lab Test results independently reviewed as above. Pertinent findings: No leukocytosis or left shift, no signs of anemia, coags negative, electrolytes and renal function within normal limits Independently reviewed EKG as above Imaging studies independently reviewed: Descending and sigmoid thickening and inflammatory change most consistent with colitis secondary diverticulitis, no abscess or perforation Re-evaluations: resting comfortably Discussion: Patient with painless bright red blood per rectum is hemodynamically stable, not on anticoagulation, repeat H&H stable. She has had some pain and cramping earlier in the week, imaging shows an inflammatory change consistent with diverticulitis. There is no evidence of perforation or abscess. Pain is well controlled and patient is tolerating orals. I can not be ignored that her symptoms seemed to flare-up after dietary indiscretions raising the question of a possible exacerbation irritable bowel syndrome. We did discuss this as a possibility but sure the opinion that treatment with antibiotics is most appropriate given this is a different presentation than is typical for her. Also, earlier in the week she was diagnosed with a urinary tract infection and culture and sensitivity notes Enterococcus, she is on nitrofurantoin, we did discuss that it would be difficult to treat both diverticulitis and her UTI with the same antibiotic, she understands that she must take both the nitrofurantoin as well as the Augmentin written today. Disposition: see below, along with detailed discharge instructions that have been reviewed with patient as well as indications for ED re-evaluation and additional outpatient follow up Discharge Plan Departure Patient Disposition: Home Clinical Impression: Diverticulitis Instructions: DI for Diverticulitis Activity Restrictions/Additional Instructions: *You have been diagnosed with [rectal bleeding due to mild diverticulitis * *What to do: *Please continue to take your regular medications as directed. [x ] New medication prescriptions sent to your pharmacy: [ [facility]] *Please follow up with your primary care provider in 2-3 days, call for an appointment. Let them know you were seen in the Emergency Department and that we ask that you be seen in follow up. We will electronically transmit a record of today's note if your PCP is in our system *Please consider a clear liquid diet for the next 24-48 hours and then slowly advance to regular as tolerated. Also, try to avoid alcohol, nicotine, caffeine, spicy, acidic or fatty foods as this may worsen your symptoms *If you do not have a primary care provider please contact the [facility] Resource line at [phone]. They will ask some questions about your medical history and help get you set up with a doctor in the community. *Return to Emergency Department if you should have any new, worsening or concerning symptoms, such as [fever greater than 101 F, shaking chills, worsening pain, persistent vomiting or other bothersome symptoms] Prescriptions: New amoxicillin-pot clavulanate 875-125 mg tablet 1 tab PO Q12H Qty: 20 0RF No Action cholecalciferol (vitamin D3) [Vitamin D3] 1,000 unit Capsule 3,000 unit PO DAILY Qty: 0 diltiazem HCl [Cartia XT] 180 mg capsule,extended release 24hr 180 mg PO DAILY Qty: 90 3RF Myrbetriq 25 mg tablet extended release 24 hr See Rx Instructions .ROUTE .COMPLEX Qty: 90 3RF Dose Instruction: TAKE 1 TABLET BY MOUTH DAILY Rx Instructions: TAKE 1 TABLET BY MOUTH DAILY CMP Estradiol Vaginal Cream 0.011% See Rx Instructions .ROUTE .COMPLEX Qty: 30 6RF Rx Instructions: Apply 1 gm to vaginal 2x weekly. [facility] atorvastatin [Lipitor] 20 mg tablet 20 mg PO HS Qty: 90 3RF levothyroxine [Synthroid] 75 mcg tablet 75 mcg PO DAILY Qty: 90 3RF lisinopril 10 mg tablet 10 mg PO QDAY Qty: 90 3RF nitrofurantoin monohyd/m-cryst [Macrobid] 100 mg capsule 100 mg PO BID 5 Days Qty: 10 0RF Rx Instructions: must administer with a meal/food ascorbate calcium (vitamin C) 500 mg tablet 500 mg PO DAILY propylene glycol [Systane Balance] 1 drp ophthalmic (eye) BID Referrals: Nando Damon MD [Primary Care Provider] - Stand Alone Forms: Patient Portal/API
[2023-04-19 13:18] LABS: Adenovirus F 40/41 Not Detected (Not Detect); Astrovirus Not Detected (Not Detect); Campylobacter Not Detected (Not Detect); Clostridium difficile toxin AB Not Detected (Not Detect); Cryptosporidium Not Detected (Not Detect); Cyclospora cayetanensis Not Detected (Not Detect); Entamoeba histolytica Not Detected (Not Detect); Enteroaggregative E.coli Not Detected (Not Detect); Enteropathogenic E.coli Not Detected (Not Detect); Enterotoxigenic E.coli It/st Not Detected (Not Detect); Giardia lamblia Not Detected (Not Detect); Norovirus GI/GII Not Detected (Not Detect); Plesiomonsa shigelloides Not Detected (Not Detect); Rotavirus A Not Detected (Not Detect); Salmonella Not Detected (Not Detect); Sapovirus Not Detected (Not Detect); Shiga-like toxin-prod E.coli Not Detected (Not Detect); Shigella/Enteroinvasive E.coli Not Detected (Not Detect); Vibrio Not Detected (Not Detect); Vibrio cholerae Not Detected (Not Detect); Yersinia enterocolitica Not Detected (Not Detect)
[2023-04-19 13:36] LABS: Appearance Urine UA CLEAR; Bilirubin Urine UA NEGATIVE (NEGATIVE); Color Urine UA YELLOW; Glucose Urine UA NEGATIVE (Negative); Ketones Urine UA NEGATIVE (NEGATIVE); Leukocyte Esterase Urine UA NEGATIVE (NEGATIVE); Nitrite Urine UA NEGATIVE (Negative); Occult Blood Urine UA NEGATIVE (Negative); Protein Urine UA NEGATIVE (Negative); Urobilinogen Urine UA 0.2 E.U./dL (0.2)
[2023-04-19 13:37] LABS: pH Urine UA 5.5 (4.5-8.0)
--- NOTE | 2023-04-19 13:45 | DI.CT.S_ITS ---
PROCEDURE: CT ABDOMEN PELVIS W CON INDICATIONS: severe abdominal pain, bright red rectal bleeding TECHNIQUE: After the administration of IV contrast, axial sections were acquired from the lung bases to the pubic symphysis. Coronal and sagittal reformats were performed. For radiation dose reduction, the following was used: automated exposure control, adjustment of mA and/or kV according to patient size. COMPARISON: None. FINDINGS: Image quality: Excellent. Lung bases: Unremarkable. Heart: No significant findings. ABDOMEN: Liver: Liver is enlarged measuring 19.9 cm with steatosis. Gallbladder: Unremarkable. Biliary ducts: Unremarkable. Pancreas: Unremarkable. Spleen: Unremarkable. Adrenal Glands: Unremarkable. Kidneys and Ureters: Bilateral simple renal cysts. Stomach and Bowel: Stomach, small bowel loops, and colon are directive there is thickening within the descending colon with pericolonic inflammatory change and diverticula. This extends to the proximal most sigmoid colon. Peritoneum: No abnormal intraperitoneal fluid. No free air. Ventral Wall: No hernia. Abdominal Nodes: No retroperitoneal or mesenteric adenopathy by size criteria. Vessels: Aorta and inferior vena cava are normal in size. PELVIS: Pelvic Organs: Low-attenuation focus within the left adnexa measures 4.3 x 3.5 cm. Uterus demonstrates irregularity and calcifications. Bladder: Unremarkable. Pelvic Nodes: No enlarged lymph nodes. Miscellaneous: No inguinal hernias are seen. Bones: Unremarkable. IMPRESSION: Descending and sigmoid thickening and inflammatory change most consistent with colitis secondary diverticulitis. No abscess. Low-attenuation focus within the left ovary. This may represent simple renal cysts. However, given patient's age, nonemergent ultrasound is recommended as cystic malignancy cannot be excluded. Uterus is heterogeneous with calcifications most suggestive of fibroids. Dictated by: Linda Mc M.D. on 04/19/2023 at 15:05 Approved by: Linda Mc M.D. on 04/19/2023 at 15:09
[2023-04-19 13:46] LABS: Bacteria Urine None Seen; Culture Indicated Urine Cult Not Indicated; RBC Urine None Seen (0-5/HPF); Squamous Epithelial Cell Urine None Seen (0-5/HPF); Urine Comments Microscopic Normal; WBC Urine None Seen (0-5/HPF)
[2023-04-19 14:28] LABS: Hematocrit 39.8 % (36-46); Hemoglobin 13.5 g/dL (12.0-16.0)
--- NOTE | 2023-04-19 16:18 | PC.NURSE ---
patient reports cramping is improved, loose stools have improved. Denies pain at present
== END 2023-04-19 16:48 | disposition home or self-care (01) ==
PROVIDERS: Emergency Provider Emergency Medicine; Family Provider Internal Medicine; PCP Internal Medicine
DX: K57.92 Diverticulitis of intestine, part unspecified, without perforation or abscess without bleeding (principal); Z79.899 Other long term (current) drug therapy
CPT/HCPCS: 74177; 80053; 81001; 82272; 85014; 85018; 85025; 85610; 85730; 87507; 93005; 96374; 96375; 99284; C9113; J2405; Q9967

== ENCOUNTER → 2023-05-30 15:05 | Outpatient (CLI) | payer MEDICARE, SELFPAY ==
[2023-05-30 16:09] LABS: Cancer Antigen 125 6.2 U/mL (0-35)
== END ==
PROVIDERS: Family Provider Internal Medicine; PCP Internal Medicine; Referring Provider Obstetrics & Gynecology; Visit Provider Obstetrics & Gynecology
DX: N83.209 Unspecified ovarian cyst, unspecified side (principal); Z12.73 Encounter for screening for malignant neoplasm of ovary
CPT/HCPCS: 36415; 86304

== ENCOUNTER → 2023-05-30 15:41 | Outpatient (CLI) | payer MEDICARE, SELFPAY ==
--- NOTE | 2023-05-30 15:42 | DI.US.S_ITS ---
PROCEDURE: US PELVIC COMPLETE INDICATIONS: FOLLOW UP ON OVARIAN CYST SEEN ON CT TECHNIQUE: Real-time scanning was performed of the pelvic organs, with image documentation. Additional endovaginal scanning was necessary due to incomplete visualization of the adnexal and endometrial structures by transabdominal scanning. COMPARISON: [facility], CT, CT ABDOMEN PELVIS W CON, 04/19/2023, 14:17. FINDINGS: Uterus: Uterus is anteverted and normal in size at 7.4 x 3.8 x 6.8 cm. The myometrium is heterogeneous. The endometrium measures 5 mm combined thickness. Multiple fibroids are present, the majority of which are subserosal and intramural. The largest is subserosal along the posterior right margin measuring 2.6 x 2.5 x 3.1 centimeter. Additionally, there is an intramural fibroid measuring 0.9 centimeters with a short submucosal interface. Ovaries: Right ovary is not visualized due to overlying bowel gas. There is a left ovarian cystic lesion measuring 3.9 x 3.7 x 3.8 centimeters, without internal papillary projections or septations. The left ovary measures 4.6 x 4.6 x 3.4 centimeters, volume of 38 cc. Other: No pathologic free abdominal or pelvic fluid. IMPRESSION: Left ovarian cystic lesion without complex features measuring 3.9 centimeters. O-RADS 2. Heterogeneous is uterus, containing multiple fibroids, largest measuring 3.1 centimeter. We strive to produce accurate, complete, and clear reports of imaging services. To assist us in improving patient care, this report was composed using standard report templates and voice recognition software. Therefore, it may contain abnormal punctuation, insertions and/or omissions. Occasional wrong-word or sound-alike substitutions may occur. Though we review the report and make efforts to correct it, we do recommend that the report be read carefully in proper context to recognize any text inaccuracies. Dictated by: Felix Jimenez M.D. on 05/30/2023 at 17:03 Approved by: Felix Jimenez M.D. on 05/30/2023 at 17:08
== END ==
PROVIDERS: Family Provider Internal Medicine; PCP Internal Medicine; Referring Provider Obstetrics & Gynecology; Visit Provider Obstetrics & Gynecology
DX: N83.202 Unspecified ovarian cyst, left side (principal); D25.1 Intramural leiomyoma of uterus; D25.0 Submucous leiomyoma of uterus; D25.2 Subserosal leiomyoma of uterus; Z12.73 Encounter for screening for malignant neoplasm of ovary
CPT/HCPCS: 36415; 76830; 76856; 86304; 93976

== ENCOUNTER 2023-06-10 06:04 | Day surgery (SDC) | payer MEDICARE, SELFPAY ==
[2023-05-29 10:12] VITALS: BMI 24.7
[2023-06-10] VITALS (18 sets, daily range): BP systolic 85–143; BP diastolic 40–81; PULSE 61–97; RESP 16–18; TEMP 35.8–36.8; O2SAT 92–99; BMI 24.7
--- NOTE | 2023-06-10 | PATH_ITS ---
[facility] Accession Number: [id number] No. of containers..01 Tissue . 01 Material submitted: . uterus - UTERUS, BILATERAL TUBES AND OVARIES . 01 Diagnosis: Uterus, Bilateral Tubes And Ovaries; Hysterectomy And Bilateral Salpingo-oophorectomy: Uterine cervix: Mild chronic cervicitis; negative for dysplasia and malignancy. Endometrium: Predominantly inactive endometrium, consistent with atrophy. Rare focus of possible adenomyosis. Negative for endometrial polyps, atypia, hyperplasia, and malignancy. Myometrium: Benign intramural leiomyomas with degenerative changes including dystrophic calcifications. Negative for atypia and malignancy. Benign bilateral fallopian tubes and paratubal cysts. Benign bilateral ovaries; one ovary has a benign serous cyst, 4.9 cm in greatest dimension, without evidence of cytologic atypia or malignancy. [facility] 06/18/2023 1344 Local . 01 Electronically signed: . Madeleine Cruz MD, Pathologist NPI- [id number] . 01 Gross description: . The specimen is received in formalin labeled with the patient's name, , and uterus, bilateral tubes, and ovaries, consists of a fragmented uterus and cervix (89 grams, 8.7 x 7.9 x 3.5 cm in aggregate), with two unoriented tubo-ovarian units (the first tube measures 5.1 x 0.6 cm, and the first ovary weighs 1 gram, and measures 1.7 x 0.8 x 0.8 cm, the second tube measures 4.5 cm in length by 0.5 cm in diameter, and the second ovary weighs 38 grams, and measures 4.9 x 4.6 x 3.5 cm), the cervix measures 3.5 x 2.2 cm with a slit-like os measuring 0.7 cm in diameter. The ectocervix is garcia and finely granular, and the paracervical margin is inked blue. The serosa is garcia and smooth with no evidence of hemorrhage or adhesion identified. The presumed endometrium is brown and velvety, and averages less than 0.1 cm thick. The endocervical canal has garcia herringbone mucosa and measures 2.9 cm in length. The myometrium is garcia and trabecular with multiple well-circumscribed white whorled nodules ranging from 0.2 to 3.1 cm in greatest dimension with multiple hard areas consistent with calcification, and no hemorrhage grossly identified. . The first tube has violaceous smooth serosa with multiple cystic structures measuring up 0.7 cm in greatest dimension filled with cloudy serous fluid. Sectioning reveals an unremarkable stellate lumen. The first ovary has a garcia, cerebriform external surface, and sectioning reveals an unremarkable, physiologic cut surface. . The second tube has violaceous smooth serosa with several small cystic structures measuring up to 0.1 cm in greatest dimension. Sectioning reveals an unremarkable stellate lumen. The second ovary has a garcia distended external surface consistent with cyst that is inked green. Sectioning reveals the cyst to contain garcia serous fluid and be unilocular with thin, smooth crawford that average 0.1 cm thick with no excrescences or normal parenchyma identified. . Hotel [employer]creational Facilities Manager sections are submitted as follows: A1-A2: Hotel Recreational Facilities Manager cervix. A3: Endometrium. A4: Serosa. A5-A6: Nodules with calcified areas following decalcification. A7: First fallopian tube to include one-half of bisected fimbria and cross-sections. A8: First ovary. A9: Second fallopian tube to include one-half of bisected fimbria and cross-sections. A10-A11: Second (cystic) ovary. ([id number]) /MRV 06/18/2023 1344 Local . 01 Pathologist provided ICD-10: D25.0, N81.4 . 01 CPT . 155159 Specimen Comment: A courtesy copy of this report has been sent to [phone] Performed at: 01 [facility] [address] [place] [address] [address], [place], [place] [id number] MD Sam Lala MD Phone: [phone]
[2023-06-10] MEDS: LACTATED RINGERS 1,000 ML 100 ML IV ×3 (07:02→22:17)
[2023-06-10] MEDS: ACETAMINOPHEN IV 1,000 MG/100 ML VIAL 400 MG IV (07:08)
--- NOTE | 2023-06-10 07:38 | SUR.OPER ---
Lithotomy on padded OR bed. [place] Pad Positioner under torso. Head on pillow, arms padded and tucked at sides. Legs secured in padded yellow fins stirrups.
--- NOTE | 2023-06-10 07:44 | PM.PREOP ---
Pre-operative Note Interval Note History & Physical reviewed/Exam performed by Physician: Yes Changes to H&P: No H&P completed within 30 days and has changed as indicated here:: 05/30/23
[2023-06-10] MEDS: CEFAZOLIN 2 GM/100 ML PREMIX 100 ML IV (08:17)
[2023-06-10] MEDS: BUPIVACAINE 0.5% (PF) 30 ML, EPINEPHrine 0.15 MG INJ (10:26)
--- NOTE | 2023-06-10 11:30 | PM.GYNOP.1 ---
Operative Date/Time/Diagnoses Date of procedure: 06/10/23 Time of procedure: 11:31 Pre-op diagnosis: Uterine prolapse Symptomatic cystocele and rectocele Left ovarian cyst Post-op diagnosis: same Procedure & Clinicians Procedure: Procedures Operation Date: 06/10/23 07:45 Actual Procedure Side Surgeon p Laparoscopic Assisted Vaginal Hysterectomy with bilateral salpingecotmy-oophorectomy Maral Smith MD s Anterior/Posterior Repair with sacrospinous ligament fixation Not Applicable Maral Smith MD Indications: Third-degree Uterine prolapse Cystocele and rectocele Surgeon: Maral Smith Pellet Post Inspector: Shanita Shaw Anesthesia Type: General and Local Operative Notes Findings: 8 week size multifibroid uterus prolapsed 5 cm simple left ovarian cyst Normal tubes Normal liver Normal appendix Adhesions between the posterior uterus and the bowel Closure Type: primary Specimen(s): left tube & ovary, right tube & ovary and uterus Estimated blood loss (mL): 400 Blood products transfused: none Procedure in detail: The patient was taken to the operating room where she was placed in the dorsal supine position. After adequate general endotracheal anesthesia was achieved, she was placed in the dorsal lithotomy position, and prepped and draped in the usual sterile fashion. A bivalve speculum was placed into the vagina, and a single-tooth tenaculum was placed on the anterior lip of the cervix. The cervical os was sequentially dilated until the ZUMI uterine manipulator could pass easily into the endometrial cavity. The single-tooth tenaculum was removed from the anterior lip of the cervix, and the bivalve speculum was removed from the vagina. Attention was then turned to the abdomen where 6 mL of half percent Marcaine with epinephrine were injected in the umbilical fold. A 5 mm incision was made. The Veress needle was placed into the peritoneal cavity, and its placement confirmed by aspiration and drop test. The abdominal cavity was insufflated with 4 L of CO2. The Veress needle was removed, and a 5 mm trocar was placed without difficulty. Initial inspection of the pelvis revealed the findings noted above. 2 other incisions were made 4 cm lateral to the umbilicus. These were 5 mm incisions. Two 5 mm trocars were placed under direct visualization. The endo Joselo were used to take down adhesions between the bowel and posterior uterus. These were thin adhesions. The right tube and ovary were grasped with an atraumatic grasper. The infundibulopelvic ligament on the right side was cauterized and cut with the power seal. The round ligament and broad ligament were cauterized and cut. This was continued to the level of the uterine arteries. This was repeated on the patient's left side. The instruments were removed from the abdomen. Attention was then turned to the vagina where the ZUMI uterine manipulator was removed from the uterus. The cervix was grasped with a 4 tooth tenaculum. 10 mL of quarter percent Marcaine with epinephrine were injected circumferentially around the cervix. The cervix was circumscribed. The bladder and rectum were dissected off the lower uterine segment and cervix with an open moistened Ray-Serge. The peritoneum was entered sharply with the Metzenbaum scissors anteriorly and a Marah placed. The peritoneum was entered posteriorly with the Metzenbaum scissors and the long weighted speculum was placed into the posterior cul-de-sac. The uterosacral cardinal ligament complexes were clamped, transected, and suture ligated with 0 Vicryl. These were attached to hemostat. The uterine arteries were clamped, transected, and suture ligated with 0 Vicryl. The uterus was handed off for specimen with the tubes and ovaries. The peritoneum was closed with a pursestring suture with 2-0 Vicryl. The vaginal cuff was closed with 0 Vicryl with a series of simple interrupted sutures. The tagged sutures were cut. 2 Allis clamps were placed at the apex of the cystocele. 6 mL of half percent Marcaine with epinephrine were injected and an incision was made with a #10 blade between the 2 Allis clamps. Wide Allis clamps were placed on the midline of the cystocele approximately 7. The mucosa was undermined using the Metzenbaum scissors and the mucosa incised in the midline moving the wide Allis clamps to the edges of the mucosa. The mucosa was dissected off the underlying fascia using an open moistened Ray-Serge and a #10 blade. The fascia was reapproximated with 0 Vicryl with a series of horizontal mattress sutures. The excess vaginal mucosa was excised. The mucosa was closed using simple interrupted sutures with 2-0 Vicryl including the underlying fascia to close the space. The weighted speculum was removed from the vagina. Allis clamps were placed at the mucocutaneous junction at the introitus. 6 mL of half percent Marcaine with epinephrine were injected. An incision was made with a #10 blade between the 2 Allis clamps, and a triangular piece of skin and underlying subcutaneous tissue was removed. Allis clamps were placed in the midline of the rectocele. 10 mL of half percent Marcaine with epinephrine were injected submucosally. The mucosa was undermined using the Metzenbaum scissors and the mucosa incised in the midline, moving the wide Allis clamps to the mucosal edges. The underlying fascia was dissected off of the mucosa using an open moistened Ray-Serge and a #10 blade. The right sacral spinous ligament was identified and cleared of all tissue surrounding. Using the Capio needle, a 2-0 Prolene was placed into the sacral spinous ligament 2 fingerbreadths from the ischial spine. This was then placed through the posterior most distal vagina. This was tagged with a hemostat. The fascia was reapproximated using 0 Vicryl with a series of horizontal mattress sutures. The excess vaginal mucosa was excised. The mucosa was closed using a series of simple interrupted sutures with 2-0 Vicryl including the underlying fascia to close the space. After 2 or 3 mucosal stitches were placed, the sacral spinous ligament stitch was tied down. The remainder of the mucosa was closed using simple interrupted sutures with 2-0 Vicryl including the underlying fascia to close the space. On the perineum 0 Vicryl was used to reapproximate the levator muscle. The subcutaneous layer was closed with 2-0 Vicryl. The skin was closed with 3-0 chromic in a subcuticular fashion. Hemostasis was achieved. A Betadine moistened vaginal pack was placed into the vagina. A rectal exam was done and there were no sutures palpable in the rectum. Attention was then turned back to the abdomen. The abdomen was re-insufflated with carbon dioxide gas. The pelvis was examined. There was a small bleeder at the left vaginal cuff. This was cauterized with the spatula cautery for hemostasis. The instruments were removed from the abdomen. The CO2 was allowed to escape. The trocars were removed. The incisions were closed with 4-0 Monocryl in a subcuticular fashion. Steri-Strips and Allevyn dressings were placed. The urine was clear. Sponge, lap, and instrument counts were correct x-2. The patient tolerated the procedure well, was taken to PACU in stable condition. Complications: none Post-operative Condition: stable Disposition: PACU Plan for aftercare: To acute care after recovery
[2023-06-10] MEDS: ACETAMINOPHEN 325 MG TABLET 650 MG PO (17:54)
[2023-06-10] MEDS: ONDANSETRON 4 MG/2 ML INJ IV (18:33)
[2023-06-10] MEDS: ATORVASTATIN 20 MG TABLET PO (20:28)
[2023-06-10] MEDS: ONDANSETRON 4 MG ODT SL (21:54)
[2023-06-10] MEDS: diphenhydrAMINE 50 MG/ML VIAL 25 MG IV (23:39)
[2023-06-11 06:00] VITALS: BP 120/68; PULSE 85; RESP 17; TEMP 36.8; O2SAT 96
[2023-06-11] MEDS: LEVOTHYROXINE 75 MCG TABLET PO (06:00)
[2023-06-11 06:35] LABS: Add Manual Diff / Slide Review NO; Basophils Absolute Auto 0 /uL (0-100); Basophils Percent Auto 0.2 % (0-2); Eosinophils Absolute Auto 0 /uL (0-450); Hematocrit 35.5 % (36-46); Lymphocytes Absolute Auto 1200 /uL (1100-4500); Lymphocytes Percent Auto 7.5 % (25-40); Mean Corpuscular HGB Conc 33.8 % (30-36); Mean Corpuscular Volume 88.8 fL (80-100); Monocytes Absolute Auto 1100 /uL (0-900); Monocytes Percent Auto 6.6 % (3-14); Neutrophils Absolute Auto 14100 /uL (1500-7000); Neutrophils Percent Auto 85.7 % (50-75); Platelet Count 208 X10^3/uL (150-400); Red Cell Distribution Width 13.1 % (11.6-14.8); White Blood Cell Count 16.5 X10^3/uL (4.5-11.0)
[2023-06-11 06:47] LABS: BUN Creatinine Ratio 18.9 (6-22); Blood Urea Nitrogen 14 mg/dL (7-17); Carbon Dioxide 26 mmol/L (22-32); Chloride 103 mmol/L (98-107); Estimated Glomerular Filt Rate > 60 mL/min (>60); Glucose 115 mg/dL (80-110); HEMOLYSIS < 15 (0-50); Potassium 3.8 mmol/L (3.4-5.1); Sodium 137 mmol/L (137-145)
[2023-06-11] MEDS: dilTIAZem CD 180 MG CAP PO (08:18)
[2023-06-11 09:00] VITALS: BP 140/73; PULSE 93; RESP 16; TEMP 36.3; O2SAT 99
--- NOTE | 2023-06-11 11:09 | CM.DANOTE ---
DCP: Case received, EMR reviewed and met with patient. Introduced self and role. Was able to complete DCP assessment based upon information currently available. Patient is a 67 year old female who admitted yesterday morning to the care of Dr. Smith. PCP: Dr. Damon. Payer: confirmed: [employer] Medicare. Patient came to the hospital via private vehicle for a surgical procedure. Patient had laparoscopic assisted vaginal hysterectomy with bilateral salpingecotm-oophorectomy. Patient has history of uterine prolapse, symptomatic cystocele and rectocele. Met with patient in her room. She is alert, sitting up in bed. Confirmed that she resides in [place] with spouse, Velasquez. She is independent at baseline, is a retired occupational therapist, has been retired for a couple of years. P: DCP to continue to follow. Patient should be able to go home when medically stable, possibly today. Rena Borjas RN/Pneumatic Tester Mechanic Discharge Planning/Care Management CM Discharge Assessment Start: 06/11/23 10:09 Freq: Status: Active Protocol: Document 06/11/23 10:10 (Rec: 06/11/23 11:04 [id number]) Discharge Planning Assessment Assigned Bit Sharpener Operator Rena Borjas RN/Pneumatic Tester Mechanic Advance Directives? No History Provided By Patient,Medical Record Prior Living Arrangements House Household Members spouse Type of transporation used prior to Drives own vehicle admit Independent with ADL's Yes Is patient alert and oriented? Yes Caregiver for Another No Barriers to Discharge No Discharge Plan Home Transportation Arrangement Spouse Referrals Initiated None needed Whiteboard Updated in Patient Room with Yes name and ext. # of Bit Sharpener Operator Review Status In Process Next Review Type Continued Stay Review Pre-Anesthesia Assessment Start: 05/29/23 10:12 Freq: Status: Active Protocol: Document 05/29/23 10:12 CAB (Rec: 05/29/23 11:29 CAB [id number]) Pre-Anesthesia Assessment Patient Information Reviewed Via Phone Assessment Assessment Completed With Patient Primary Care Provider Nando Damon Seen Specialist in Last 12 Months Yes Specialist Seen Emergency,Passenger Car Inspector Primary Language Thai Wrap Checker Required No Height 5 ft 6 in Weight 153 lb Body Mass Index (BMI) 24.7 Hearing Ability Normal Visual Assist None,Magnifying Glass Dentition Type Teeth, Natural Present Barriers to Learning None Other Aids Yes: Oral retainer Hx Anesthesia Reactions Yes: PONV Additional comment 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 No Does patient have BUSTAMANTE/SOB No Hx Sleep Apnea No CPAP/BIPAP use not prescribed Currently Taking a Beta Sawyer No Can You Climb a Flight of Stairs Without Yes SOB Hx Chest Pain No Hx SOB No Hx Syncope or Dizziness No Anti-Coagulant Therapy No Has a Application Support Administrator No Cardiac Testing No Hx Pacemaker/ICD No Pacemaker Rep Required? No Diet Type At Home Regular Dysphagia No Gastrointestinal Symptoms Constipation,Diarrhea Comment Hx of IBS Chronic UTI No Urinary Catheter Present No Hx Urinary Self Catheterization No Diabetes No Patient No Lactating No Hx Drug Resistant Organism No Presence of External or Internal Medical No Devices Have you had any close contact with No someone diagnosed with COVID-19? Received a COVID vaccine? Yes Received all doses? Yes Marital Status Lives With spouse Current Living Arrangements House Number of Floors (Floors) Two Floors Support System Spouse Does the Patient Have Assistance After Yes Surgery Patient Discharge Plan Description Return Home Comment Pt advised 1-2 day length of stay per surgeon Feels Safe in Current Environment Yes Been Physically Hurt or Threatened By a No Person in Current Environment Do you have thoughts of harming yourself None or others? Are you currently considering suicide? No Do you have a plan to hurt yourself or No Plan others? Do You Have Any Spiritual Beliefs That No May Affect Your HC Choices? Do You Have Any Cultural Practices That No May Affect Your HC Choices? Comment Agnostic Who Can We Speak to About Patient's Care Family, friends Identifying Code for Release of Patient Declines to issue Information Health Care Proxy/Next of Kin Velasquez () Health Care Proxy Emergency Contact Name Velasquez () Emergency Contact Advance Directives? No Power of Roller Skates Assembler No PAC Instructions Do not shave/clip surgical site,Medications to take/avoid ,No ETOH/petroleum product on skin DOS,NPO,Pre-surgical wash ,Sensory aids,Sturdy shoes/ comfortable clothes,Do not bring valuables and remove jewelry
--- NOTE | 2023-06-11 18:27 | PC.NURSE ---
Discharge Note Patient A&O, VSS, RA, no complaints of pain/discomfort. Patient agreeable to discharge plan. Discharge packet reviewed with patient, all questions/concerns addressed. PIV discontinued. Patient able to dress self and pack all belongings. Patient taken down via wheelchair to POV.
== END 2023-06-11 18:15 | disposition home or self-care (01) ==
LOC: OR 06:05 → AC 06:06
PROVIDERS: Family Provider Internal Medicine; PCP Internal Medicine; Referring Provider Obstetrics & Gynecology; Visit Provider Obstetrics & Gynecology
PROC: 0UT9FZZ Resection of Uterus, Via Natural or Artificial Opening With Percutaneous Endoscopic Assistance (ICD-10-PCS; CPT 58552; principal; 2023-06-10 07:45)
PROC: (CPT 58552; 2023-06-10 07:45)
DX: N81.3 Complete uterovaginal prolapse (principal); N83.292 Other ovarian cyst, left side; N73.6 Female pelvic peritoneal adhesions (postinfective); N39.41 Urge incontinence; N72 Inflammatory disease of cervix uteri; D25.1 Intramural leiomyoma of uterus; N83.209 Unspecified ovarian cyst, unspecified side; N83.8 Other noninflammatory disorders of ovary, fallopian tube and broad ligament
CPT/HCPCS: 58552; 57260; 36415; 80048; 85025; J0131; J0171; J0690; J1100; J1170; J1200; J2405; J2704; J3010

== ENCOUNTER → 2023-06-13 09:48 | Outpatient (CLI) | payer MEDICARE, SELFPAY ==
[2023-06-10 06:26] VITALS: BMI 24.7
[2023-06-13 10:51] LABS: Appearance Urine UA CLEAR; Bilirubin Urine UA NEGATIVE (NEGATIVE); Color Urine UA YELLOW; Glucose Urine UA NEGATIVE (Negative); Ketones Urine UA NEGATIVE (NEGATIVE); Leukocyte Esterase Urine UA 2+ (NEGATIVE); Nitrite Urine UA NEGATIVE (Negative); Occult Blood Urine UA 3+ (Negative); Protein Urine UA NEGATIVE (Negative); Specific Gravity Urine UA <=1.005 (1.000-1.035); Urobilinogen Urine UA 0.2 E.U./dL (0.2)
[2023-06-13 10:57] LABS: Bacteria Urine Few (2-10); Culture Indicated Urine Specimen Cultured; RBC Urine 1-5/HPF (0-5/HPF); Squamous Epithelial Cell Urine 0-1 /HPF (0-5/HPF); WBC Urine 5-10/HPF (0-5/HPF)
== END ==
PROVIDERS: Family Provider Internal Medicine; PCP Internal Medicine; Referring Provider Obstetrics & Gynecology; Visit Provider Obstetrics & Gynecology
DX: R35.0 Frequency of micturition (principal); R39.15 Urgency of urination
CPT/HCPCS: 81001; 87077; 87086; 87186

== ENCOUNTER → 2023-06-19 12:09 | Outpatient (CLI) | payer MEDICARE, SELFPAY ==
[2023-06-10 06:26] VITALS: BMI 24.7
[2023-06-19 14:04] LABS: Appearance Urine UA CLEAR; Bilirubin Urine UA NEGATIVE (NEGATIVE); Color Urine UA YELLOW; Glucose Urine UA NEGATIVE (Negative); Ketones Urine UA NEGATIVE (NEGATIVE); Leukocyte Esterase Urine UA 2+ (NEGATIVE); Nitrite Urine UA NEGATIVE (Negative); Occult Blood Urine UA 3+ (Negative); Protein Urine UA 1+ (Negative); Specific Gravity Urine UA 1.015 (1.000-1.035); Urobilinogen Urine UA 0.2 E.U./dL (0.2)
[2023-06-19 14:21] LABS: pH Urine UA 6.5 (4.5-8.0)
[2023-06-19 14:22] LABS: Bacteria Urine Occasional (0-1); Culture Indicated Urine Specimen Cultured; RBC Urine 1-5/HPF (0-5/HPF); Squamous Epithelial Cell Urine None Seen (0-5/HPF); WBC Urine 10-30/HPF (0-5/HPF)
== END ==
PROVIDERS: Family Provider Internal Medicine; PCP Internal Medicine; Referring Provider Obstetrics & Gynecology; Visit Provider Obstetrics & Gynecology
DX: R30.9 Painful micturition, unspecified (principal)
CPT/HCPCS: 81001; 87077; 87086; 87186

== ENCOUNTER → 2023-07-03 12:13 | Outpatient (CLI) | payer MEDICARE, SELFPAY ==
[2023-06-10 06:26] VITALS: BMI 24.7
== END ==
PROVIDERS: Family Provider Internal Medicine; PCP Internal Medicine; Referring Provider Internal Medicine; Visit Provider Internal Medicine
DX: N39.0 Urinary tract infection, site not specified (principal)
CPT/HCPCS: 87086

== ENCOUNTER → 2023-07-16 16:52 | Outpatient (CLI) | payer MEDICARE, SELFPAY ==
[2023-06-10 06:26] VITALS: BMI 24.7
--- NOTE | 2023-07-16 | DI.MG.S_ITS ---
BILATERAL DIGITAL SCREENING MAMMOGRAM 3D/2D WITH CAD: 07/16/2023 CLINICAL: Routine screening. Family history of breast cancer. Comparison is made to exams dated: 07/06/2022 mammogram, 07/04/2021 mammogram, and 07/01/2020 mammogram - [facility]. Both breasts are heterogeneously dense, which may obscure small masses (category c / 51-75% glandular tissue). Current study was also evaluated with a Computer Aided Detection (CAD) system. There is an oval mass with a circumscribed margin in the right breast central to the nipple anterior depth. This is increased in size. No other significant masses, calcifications, or other findings are seen in either breast. Left postop changes. IMPRESSION: INCOMPLETE: NEEDS ADDITIONAL IMAGING EVALUATION The oval mass in the right breast resembles a cyst and is indeterminate. Additional views with possible ultrasound are recommended. Based on the Tyrer Cuzick model (a risk assessment model) the patient's lifetime risk is 10.4% and her 10 year risk is 5.8%. According to the ACR, ACS, and NCCN guidelines, an annual breast MRI exam along with mammogram is recommended if the patient's lifetime risk is 20% or greater. This exam was interpreted at Station ID: [id number]. NOTE: For mammograms, a report in lay terms will be sent to the patient. Approximately 15% of breast malignancies will not be visualized mammographically. In the management of a palpable breast mass, a negative mammogram must not discourage biopsy of a clinically suspicious lesion. Electronically Signed By: Oscar Carrillo M.D. lc/:07/18/2023 10:18:46 copy to: Dario Loving letter sent: Additional Imaging Needed ACR BI-RADS Category 0: Incomplete 3340F
== END ==
PROVIDERS: Family Provider Internal Medicine; PCP Internal Medicine; Referring Provider Internal Medicine; Visit Provider Internal Medicine
DX: Z12.31 Encounter for screening mammogram for malignant neoplasm of breast (principal); N63.10 Unspecified lump in the right breast, unspecified quadrant
CPT/HCPCS: 77063; 77067

== ENCOUNTER → 2023-07-22 06:59 | Outpatient (CLI) | payer MEDICARE, SELFPAY ==
[2023-06-10 06:26] VITALS: BMI 24.7
[2023-07-22 08:41] LABS: Alanine Aminotransferase 28 IU/L (<35); Albumin 4.2 g/dL (3.5-5.0); Albumin Globulin Ratio 1.3 (1.0-2.8); Alkaline Phosphatase 75 U/L (38-126); Aspartate Aminotransferase 30 IU/L (14-36); Bilirubin Total 0.5 mg/dL (0.2-1.3); Blood Urea Nitrogen 18 mg/dL (7-17); Calcium 9.8 mg/dL (8.4-10.2); Carbon Dioxide 28 mmol/L (22-32); Chloride 103 mmol/L (98-107); Cholesterol 176 mg/dL (140-199); Estimated Glomerular Filt Rate > 60 mL/min (>60); Globulin 3.2 g/dL (1.7-4.1); Glucose 98 mg/dL (80-110); HDL Cholesterol 52 mg/dL (40-60); HEMOLYSIS < 15 (0-50); LDL Cholesterol Calculated 102 mg/dL (<100); Potassium 4.1 mmol/L (3.4-5.1); Sodium 140 mmol/L (137-145); Total Protein 7.4 g/dL (6.3-8.2); Triglycerides 112 mg/dL (35-150)
== END ==
PROVIDERS: Family Provider Internal Medicine; PCP Internal Medicine; Referring Provider Internal Medicine; Visit Provider Internal Medicine
DX: I10 Essential (primary) hypertension (principal); E78.5 Hyperlipidemia, unspecified
CPT/HCPCS: 36415; 80053; 80061

== ENCOUNTER → 2023-07-31 09:31 | Outpatient (CLI) | payer MEDICARE, SELFPAY ==
[2023-06-10 06:26] VITALS: BMI 24.7
[2023-07-26 13:53] VITALS: BMI 24.7
--- NOTE | 2023-07-31 | DI.MG.S_ITS ---
UNILATERAL RIGHT DIGITAL DIAGNOSTIC MAMMOGRAM 3D/2D WITH ADDITIONAL VIEWS: 07/31/2023 CLINICAL: Additional evaluation requested from prior study. Comparison is made to exams dated: 07/16/2023 mammogram, 07/06/2022 mammogram, and 07/04/2021 mammogram - [facility]. The right breast is heterogeneously dense, which may obscure small masses (category c / 51-75% glandular tissue). There is a 1 cm round mass with a circumscribed margin in the right breast central to the nipple anterior depth. This is seen in additional views. This is increased in size since prior years exam and new since 2020. No other significant masses or calcifications are seen in the breast. IMPRESSION: INCOMPLETE: NEEDS ADDITIONAL IMAGING EVALUATION The 1 cm round mass in the right breast resembles a cyst but remains indeterminate. An ultrasound is recommended. This was performed immediately following this exam. Based on the Tyrer Cuzick model (a risk assessment model) the patient's lifetime risk is 10.4% and her 10 year risk is 5.8%. According to the ACR, ACS, and NCCN guidelines, an annual breast MRI exam along with mammogram is recommended if the patient's lifetime risk is 20% or greater. This exam was interpreted at Station ID: [id number]. NOTE: For mammograms, a report in lay terms will be sent to the patient. Approximately 15% of breast malignancies will not be visualized mammographically. In the management of a palpable breast mass, a negative mammogram must not discourage biopsy of a clinically suspicious lesion. Electronically Signed By: Marilin blancas/:07/31/2023 10:22:24 copy to: Dario Loving ACR BI-RADS Category 0: Incomplete 3340F
--- NOTE | 2023-07-31 09:33 | DI.US.S_ITS ---
LIMITED ULTRASOUND OF RIGHT BREAST AND AXILLA: 07/31/2023 CLINICAL: Patient returns today to evaluate a focal asymmetry in the right breast. Comparison is made to exams dated: 07/31/2023 mammogram, 07/16/2023 mammogram, 07/06/2022 mammogram, 07/04/2021 mammogram, 07/01/2020 mammogram, and 06/29/2019 [facility]. Ultrasound of the right breast retroareolar and axilla regions was performed. Durant scale images of the real-time examination were reviewed. There is a 8 mm round cyst with a smooth internal wall in the right breast central to the nipple anterior depth. This round cyst is anechoic. This correlates with mammography findings. Color flow imaging demonstrates that there is no vascularity present. IMPRESSION: BENIGN There is no sonographic evidence of malignancy. The 8 mm round cyst in the right breast corresponds to the mammogram finding, is consistent with a simple cyst and is benign. Return to annual mammogram screening schedule is recommended. Findings and recommendations were conveyed to the patient at time of exam. This exam was interpreted at Station ID: [id number]. Electronically Signed By: Marilin blancas/:07/31/2023 10:50:45 copy to: Dario Loving letter sent: Normal Exam Ultrasound BI-RADS: 2 Benign
== END ==
PROVIDERS: Family Provider Internal Medicine; PCP Internal Medicine; Referring Provider Internal Medicine; Visit Provider Internal Medicine
DX: R92.8 Other abnormal and inconclusive findings on diagnostic imaging of breast (principal); N60.01 Solitary cyst of right breast
CPT/HCPCS: 76642; 77065; G0279

== ENCOUNTER → 2023-08-05 14:22 | Outpatient (CLI) | payer MEDICARE, SELFPAY ==
[2023-07-26 13:53] VITALS: BMI 24.7
== END ==
PROVIDERS: Family Provider Internal Medicine; PCP Internal Medicine; Visit Provider Internal Medicine
DX: N39.0 Urinary tract infection, site not specified (principal)
CPT/HCPCS: 87086

== ENCOUNTER → 2023-08-05 14:26 | Outpatient (CLI) | payer MEDICARE, SELFPAY ==
[2023-07-26 13:53] VITALS: BMI 24.7
== END ==
PROVIDERS: Family Provider Internal Medicine; PCP Internal Medicine; Referring Provider Internal Medicine; Visit Provider Internal Medicine
DX: N39.0 Urinary tract infection, site not specified (principal)

== ENCOUNTER 2023-12-04 10:30 | Outpatient (RCR) | payer MEDICARE, SELFPAY ==
[2023-07-26 13:53] VITALS: BMI 24.7
--- NOTE | 2023-09-19 13:32 | PT.OIE ---
Current Diagnoses Other specified disorders of muscle (09/19/23) Pelvic muscle wasting (09/19/23) Past Medical History (Last Updated 05/29/23 @ 11:29 by Pamela Melton RN) Acquired hypothyroidism (12/06/11) Anesthesia complication Cardiac arrhythmia Depression (08/27/14) Diverticulosis of colon (10/04/17) Ear pain, left Fibroids (1987) Hayfever (1969) Heart murmur (1989) Hemorrhoid History of COVID-19 (08/2022) Hyperlipidemia (12/06/11) Hypertension (12/06/11) IBS (irritable bowel syndrome) (1979) Irritable bowel syndrome with diarrhea (07/07/15) Lactose intolerance in adult (07/07/15) Liver disease Other chronic nonalcoholic liver disease (08/19/00) Pelvic floor weakness (2004) Precancerous skin lesion Prolapsed bladder (2004) Prolapsed uterus (2004) Rectal prolapse (2004) TMJ (temporomandibular joint syndrome) (1979) Urinary incontinence Uterovaginal prolapse, unspecified (12/06/11) Vertigo (2013) Past Surgical History (Last Updated 05/30/23 @ 16:52 by Maral Smith MD) History of breast surgery (1987) History of colonoscopy (08/2017) History of liver biopsy (2003) History of surgery (11/13/18) History of surgery (~2012) History of surgical procedure on mouth History of urinary tract surgery (~1959) Visit Care Team Role Provider Type Nando Damon MD Family Provider Physician Primary Care Provider Specialty: Internal Medicine Address: [address] [place] [address], [id number] Email: [email or web address] Maral Smith MD Attending Provider Physician Referring Provider Specialty: Gynecology [facility] [employer] [facility] Address: [address] [place] [address], [id number] Email: [email or web address] Physical Therapy Initial Evaluation PT-OP-A Visit Information Start: 09/19/23 08:14 Freq: Status: Active Protocol: Document 09/19/23 09:45 [facility] (Rec: 09/19/23 13:00 [facility] [id number]) Out-Patient Physical Therapy Visit Information Visit Information Visit Type Initial Evaluation Visit Start Time 09:45 Visit Stop Time 10:30 Visit Number 45 Evaluation Information Evaluation Date 09/19/23 PT-OP-B Current Condition Start: 09/19/23 08:14 Freq: Status: Active Protocol: Document 09/19/23 09:45 [facility] (Rec: 09/19/23 10:33 [facility] [id number]) Current Condition History of Current Condition History of Current Condition pt had prolapses and had 3rd degree bladder and uterine prolapses and used a pessary x 15 years prior to her surgery HEr suregury was 06/10/23 she was not aware she would have lifting restrictions of 20 # She has a 40 # dog and she wants to be able to travel she wants to get as strong as she can. She is going to be traveling the end of December. The surgery helped as she was having urge incontinence and overactive bladder, this is better overall. The rectocele repair has helped as she is better able to have a bowel movement. She is worried the cystecele is coming back a little. SHe is using the estrodial but does feel that her tissue is irritated at times. At this time she is not experiencing leakage, she does use a panty liner due to a little bit of fecal smearing . She uses benafiber and align and has a bowel movement every day. She does have IBS and colitis. Treatment Goals Patient/Caregiver Goals pt would like to get as strong as possible and how to lift well PT-OP-C Subjective Start: 09/19/23 08:14 Freq: Status: Active Protocol: Document 09/19/23 09:45 [facility] (Rec: 09/19/23 13:29 [facility] [id number]) Patient Questionnaires Pelvic Pain and Urgency/Frequency Patient Symptom Scale Pelvic Pain Score 7 PT-OP-I Pelvic Floor Start: 09/19/23 08:14 Freq: Status: Active Protocol: Document 09/19/23 09:45 [facility] (Rec: 09/19/23 13:29 [facility] [id number]) Pelvic Floor Assessment Urine Pelvic Floor Surgery Yes: laparpscopic assisted vaginal hysterectomy Other Urinary Symptoms surgery continued: vaginal hysterectomy with B salpingecotmy-oophorectomy with anterior/posterior repair with sacrospinous ligament fixation 06/10/23 pt had good success with surgery and is no longer experience urge incontinence symptoms but does feel weak and wants to improve her pelvic floor strength to make sure her surgery keeps her bladder and rectum supported. Pt had a history of grade 3 bladder and uterine prolapse Pelvic Clock Pelvic Clock 12-3 Atrophy Pelvic Clock 3-6 Atrophy Pelvic Clock 6-9 Atrophy Pelvic Clock 9-12 Atrophy Pelvic Clock Other generalized weakness and thinning of the tissue over the rectum Contraction Ability Voluntary Contraction Weak Voluntary Relaxation Weak Manual Muscle Testing Left 2 Manual Muscle Testing Right 2 Manual Muscle Testing Anterior 2 Manual Muscle Testing Posterior 2 Muscle Endurance (Seconds) 6 Comments Pelvic Floor Comments left anterior wall of the levator ani is weaker than the right, there is some swelling noted near the pubic bone which is most likely due to tissue healing still, no signs of prolapse and no obvious scar tissue palpated PT-OP-Q Treatments Start: 09/19/23 08:14 Freq: Status: Active Protocol: Document 09/19/23 09:45 [facility] (Rec: 09/19/23 13:31 [facility] [id number]) Therapeutic Exercises Supine Exercises supine ball squeeze with pelvic floor contraction Reps/Minutes hold x 5 seconds and rest x 10 seconds pelvic floor long holds Reps/Minutes x 10 reps holding 10 seconds and relaxing 10 seconds PT-OP-T Assessment and Plan Start: 09/19/23 08:14 Freq: Status: Active Protocol: Document 09/19/23 09:45 [facility] (Rec: 09/19/23 13:29 [facility] [id number]) Physical Therapy Assessment Rehab Potential Rehabilitation Potential Excellent Evaluation Complexity Number of Personal Factors/Comorbidities 0 Number of Body Systems Impaired 1-2 Clinical Presentation at Evaluation Stable Impairments Impairments Functional Activities,Soft Tissue Mobility,Strength,Tone Goals 3 Impairment Decreased endurance of the levator ani Short Term Goal (STG) Kaitlin is able to sustain a pelvic floor contraction x 10 seconds in supine STG Duration 5 weeks Hair Worker Goal (LTG) Kaitlin is able to sustain a pelvic floor contraction in standing x 5 seconds or better LTG Duration 12 weeks 2 Impairment Decreased strength of the pelvic floor muscles with MMT of 2/5 for all crawford of the levator ani Short Term Goal (STG) Kaitlin is able to tolerate a strenghtening program for the pelvic floor STG Duration 4 weeks Senior Care Goal (LTG) Kaitlin is able to increase strength of the levator ani for improved pelvic support by 1 muscle grade or better LTG Duration 12 weeks 1 Impairment pt lacks a home program for progressive pelvic floor training and core stabilization Senior Care Goal (LTG) Kaitlin is Ind with a progressive HEP for both pelvic floor and core stabilization LTG Duration 12 weeks Assessment Summary Assessment Kaitlin is a 68 year old female who is referred to PT for pelvic floor strengthening s/p laparoscopic assisted vaginal hysterectomy with bilateral salpingecotmy- oophorectomy with anterior/ posterior repain with sacrospinous ligament fixation done on 06/10/23. Kaitlin reports having a 15 year history of wearing a pessary due to prolapse prior to her surgery. She states since her surgery she has not been experiencing the over active bladder symptoms and she is no longer experiencing the urge incontinence she was having. She has had a few times where she noted fecal smearing and she does wear a panty liner for protection due to this. Her goals in PT are to improve her strength and body mechanics as she wants to travel and be able to take care of her dog and she does not want any strain on her pelvic floor with travel. With examination today Kaitlin is able to contract all aspects of her levator ani . She is weaker in the anterior section on the left side of the levator ani. She tests 2/5 MMT for all crawford of the levator ani. She presents with decreased strength and decreased endurance of the pelvic floor and would benefit from a pelvic floor strengthening program to provide good support. I advised to hold off on other abdominal exercises at this time until we can improve pelvic floor strength and endurance. Kaitlin is a good candidate for PT Physical Therapy Plan Frequency and Duration Frequency of Treatment 1x/Week Duration of treatment (weeks) 12 Plan of Care Start Date 09/19/23 Plan of Care End Date 12/12/23 Therapeutic Interventions Therapeutic Interventions Home Exercise Program,Patient/ Caregiver Education,Self-Care/ Home Management,Therapeutic Exercises Modalities Biofeedback Next Visit Focus/Plan Next Note Type Treatment Note Next Visit Plan Begin EMG biofeedback for pelvic floor strength and endurance training
--- NOTE | 2023-09-19 13:32 | PT.OPPOC ---
Physical, Occupational & Speech Therapy At [facility] Current Diagnoses Other specified disorders of muscle (09/19/23) Pelvic muscle wasting (09/19/23) Visit Care Team Role Provider Type Nando Damon MD Family Provider Physician Primary Care Provider Specialty: Internal Medicine Address: [address] [place] [address], [phone] Email: [email or web address] Maral Smith MD Attending Provider Physician Referring Provider Specialty: Gynecology [employer] [facility] Address: [address] [place] [address], [address] Email: [email or web address] Plan Of Care PT-OP-T Assessment and Plan Start: 09/19/23 08:14 Freq: Status: Active Protocol: Document 09/19/23 09:45 [facility] (Rec: 09/19/23 13:29 [facility] [id number]) Physical Therapy Assessment Rehab Potential Rehabilitation Potential Excellent Evaluation Complexity Number of Personal Factors/Comorbidities 0 Number of Body Systems Impaired 1-2 Clinical Presentation at Evaluation Stable Impairments Impairments Functional Activities,Soft Tissue Mobility,Strength,Tone Goals 3 Impairment Decreased endurance of the levator ani Short Term Goal (STG) Kaitlin is able to sustain a pelvic floor contraction x 10 seconds in supine STG Duration 5 weeks Circus Performer Goal (LTG) Kaitlin is able to sustain a pelvic floor contraction in standing x 5 seconds or better LTG Duration 12 weeks 2 Impairment Decreased strength of the pelvic floor muscles with MMT of 2/5 for all crawford of the levator ani Short Term Goal (STG) Kaitlin is able to tolerate a strenghtening program for the pelvic floor STG Duration 4 weeks Circus Performer Goal (LTG) Kaitlin is able to increase strength of the levator ani for improved pelvic support by 1 muscle grade or better LTG Duration 12 weeks 1 Impairment pt lacks a home program for progressive pelvic floor training and core stabilization Circus Performer Goal (LTG) Kaitlin is Ind with a progressive HEP for both pelvic floor and core stabilization LTG Duration 12 weeks Assessment Summary Assessment Kaitlin is a 68 year old female who is referred to PT for pelvic floor strengthening s/p laparoscopic assisted vaginal hysterectomy with bilateral salpingecotmy- oophorectomy with anterior/ posterior repain with sacrospinous ligament fixation done on 06/10/23. Kaitlin reports having a 15 year history of wearing a pessary due to prolapse prior to her surgery. She states since her surgery she has not been experiencing the over active bladder symptoms and she is no longer experiencing the urge incontinence she was having. She has had a few times where she noted fecal smearing and she does wear a panty liner for protection due to this. Her goals in PT are to improve her strength and body mechanics as she wants to travel and be able to take care of her dog and she does not want any strain on her pelvic floor with travel. With examination today Kaitlin is able to contract all aspects of her levator ani . She is weaker in the anterior section on the left side of the levator ani. She tests 2/5 MMT for all crawford of the levator ani. She presents with decreased strength and decreased endurance of the pelvic floor and would benefit from a pelvic floor strengthening program to provide good support. I advised to hold off on other abdominal exercises at this time until we can improve pelvic floor strength and endurance. Kaitlin is a good candidate for PT Physical Therapy Plan Frequency and Duration Frequency of Treatment 1x/Week Duration of treatment (weeks) 12 Plan of Care Start Date 09/19/23 Plan of Care End Date 12/12/23 Therapeutic Interventions Therapeutic Interventions Home Exercise Program,Patient/ Caregiver Education,Self-Care/ Home Management,Therapeutic Exercises Modalities Biofeedback Next Visit Focus/Plan Next Note Type Treatment Note Next Visit Plan Begin EMG biofeedback for pelvic floor strength and endurance training Plan of Care Dates Plan of Care Start Date 09/19/23 Plan of Care End Date 12/12/23 Electronically Signed by: Rowan Liu, PT 09/19/23 [id number] If you are in agreement with this Plan of Care, please return a signed and dated copy. I have reviewed this Plan of Care and certify that the skilled therapy services above are required to meet the patient?s needs. Physician Signature Date Printed Name and Credentials Clinical Instructor Signature Printed Name and Credentials
--- NOTE | 2023-10-09 12:49 | PT.OTN ---
Current Diagnoses Other specified disorders of muscle (10/09/23) Pelvic muscle wasting (10/09/23) Physical Therapy Treatment Note PT-OP-A Visit Information Start: 09/19/23 08:14 Freq: Status: Active Protocol: Document 10/09/23 09:03 [facility] (Rec: 10/09/23 09:30 [facility] [id number]) Out-Patient Physical Therapy Visit Information Visit Information Visit Type Treatment Note Visit Start Time 09:03 Visit Stop Time 09:45 Visit Number 2 PT-OP-B Current Condition Start: 09/19/23 08:14 Freq: Status: Active Protocol: Document 09/19/23 09:45 [facility] (Rec: 09/19/23 10:33 [facility] [id number]) Current Condition History of Current Condition History of Current Condition pt had prolapses and had 3rd degree bladder and uterine prolapses and used a pessary x 15 years prior to her surgery HEr suregury was 06/10/23 she was not aware she would have lifting restrictions of 20 # She has a 40 # dog and she wants to be able to travel she wants to get as strong as she can. She is going to be traveling the end of December. The surgery helped as she was having urge incontinence and overactive bladder, this is better overall. The rectocele repair has helped as she is better able to have a bowel movement. She is worried the cystecele is coming back a little. SHe is using the estrodial but does feel that her tissue is irritated at times. At this time she is not experiencing leakage, she does use a panty liner due to a little bit of fecal smearing . She uses benafiber and align and has a bowel movement every day. She does have IBS and colitis. Treatment Goals Patient/Caregiver Goals pt would like to get as strong as possible and how to lift well PT-OP-C Subjective Start: 09/19/23 08:14 Freq: Status: Active Protocol: Document 10/09/23 09:03 [facility] (Rec: 10/09/23 09:30 [facility] [id number]) OP-PT Subjective Patient Comments Patient Comments pt notes she walks 4-5 miles and she wants to make sure it is okay. She doesn't feel pressure in her pelvic floor with or after walking. When standing and doing a self exam Kaitlin notes she can palpate a small bulge at the front of her pelvis. She is leaving for vacation January 08. Patient Reported Progress Improving PT-OP-I Pelvic Floor Start: 09/19/23 08:14 Freq: Status: Active Protocol: Document 09/19/23 09:45 [facility] (Rec: 09/19/23 13:29 [facility] [id number]) Pelvic Floor Assessment Urine Pelvic Floor Surgery Yes: laparpscopic assisted vaginal hysterectomy Other Urinary Symptoms surgery continued: vaginal hysterectomy with B salpingecotmy-oophorectomy with anterior/posterior repair with sacrospinous ligament fixation 06/10/23 pt had good success with surgery and is no longer experience urge incontinence symptoms but does feel weak and wants to improve her pelvic floor strength to make sure her surgery keeps her bladder and rectum supported. Pt had a history of grade 3 bladder and uterine prolapse Pelvic Clock Pelvic Clock 12-3 Atrophy Pelvic Clock 3-6 Atrophy Pelvic Clock 6-9 Atrophy Pelvic Clock 9-12 Atrophy Pelvic Clock Other generalized weakness and thinning of the tissue over the rectum Contraction Ability Voluntary Contraction Weak Voluntary Relaxation Weak Manual Muscle Testing Left 2 Manual Muscle Testing Right 2 Manual Muscle Testing Anterior 2 Manual Muscle Testing Posterior 2 Muscle Endurance (Seconds) 6 Comments Pelvic Floor Comments left anterior wall of the levator ani is weaker than the right, there is some swelling noted near the pubic bone which is most likely due to tissue healing still, no signs of prolapse and no obvious scar tissue palpated PT-OP-Q Treatments Start: 09/19/23 08:14 Freq: Status: Active Protocol: Document 10/09/23 09:03 [facility] (Rec: 10/09/23 09:30 [facility] [id number]) Therapeutic Exercises Supine Exercises hip rollouts with theraband Reps/Minutes 2 x 10 reps with level 3 theraband supine ball squeeze with pelvic floor contraction Supine Exercise Name 12.5 and max of 24 uv Reps/Minutes hold x 5 seconds and rest x 10 seconds pelvic floor long holds Supine Exercise Name with EMG biofeedback 13.1 average and 25.7 max Reps/Minutes x 10 reps holding 10 seconds and relaxing 10 seconds Manual Therapy Treatment Manual Techniques manual recheck of pelvic floor tone and strength Body Location pelvic floor assessment Comments Kaitlin is recruiting her anterior wall and left side more today than last week. I did recheck vaginally today due to her worries about her bladder descending. I did not feel any bladder prolapse. Her tissue is still a bit swollen and she was shown how to elevate her pelvis for pelvic decompression PT-OP-T Assessment and Plan Start: 09/19/23 08:14 Freq: Status: Active Protocol: Document 10/09/23 09:03 [facility] (Rec: 10/09/23 09:30 [facility] [id number]) Physical Therapy Assessment Goals 3 Impairment Decreased endurance of the levator ani Short Term Goal (STG) Kaitlin is able to sustain a pelvic floor contraction x 10 seconds in supine STG Duration 5 weeks Penitentiary Goal (LTG) Kaitlin is able to sustain a pelvic floor contraction in standing x 5 seconds or better LTG Duration 12 weeks 2 Impairment Decreased strength of the pelvic floor muscles with MMT of 2/5 for all crawford of the levator ani Short Term Goal (STG) Kaitlin is able to tolerate a strenghtening program for the pelvic floor STG Duration 4 weeks Penitentiary Goal (LTG) Kaitlin is able to increase strength of the levator ani for improved pelvic support by 1 muscle grade or better LTG Duration 12 weeks 1 Impairment pt lacks a home program for progressive pelvic floor training and core stabilization Penitentiary Goal (LTG) Kaitlin is Ind with a progressive HEP for both pelvic floor and core stabilization LTG Duration 12 weeks Assessment Summary Assessment I did a manual assessment again today as Kaitlin was concerned about her bladder falling. I was not able to palpate any prolapse. Her tissue still feels a little swollen. I talked to Kaitlin about elevating her pelvis after walking to provide pelvic decompression. We also discussed not pushing into any discomfort or into any pelvic heaviness with walking and to listen to her body. She denies any complaints of pressure or heaviness. She is showing improvements with pelvic floor strength on the left and anterior crawford of the levator ani today as compared to last visit. Physical Therapy Plan Frequency and Duration Frequency of Treatment 1x/Week Duration of treatment (weeks) 12 Plan of Care Start Date 09/19/23 Plan of Care End Date 12/12/23 Therapeutic Interventions Therapeutic Interventions Home Exercise Program,Patient/ Caregiver Education,Self-Care/ Home Management,Therapeutic Exercises Modalities Biofeedback Next Visit Focus/Plan Next Note Type Treatment Note Next Visit Plan continue with EMG biofeedback for pelvic floor strengthening and review hip ER exercise.
--- NOTE | 2023-10-16 12:19 | PT.OTN ---
Current Diagnoses Other specified disorders of muscle (10/16/23) Pelvic muscle wasting (10/16/23) Physical Therapy Treatment Note PT-OP-A Visit Information Start: 09/19/23 08:14 Freq: Status: Active Protocol: Document 10/16/23 09:45 [facility] (Rec: 10/16/23 10:31 [facility] [id number]) Out-Patient Physical Therapy Visit Information Visit Information Visit Type Treatment Note Visit Start Time 09:45 Visit Stop Time 10:30 Visit Number 3 PT-OP-B Current Condition Start: 09/19/23 08:14 Freq: Status: Active Protocol: Document 09/19/23 09:45 [facility] (Rec: 09/19/23 10:33 [facility] [id number]) Current Condition History of Current Condition History of Current Condition pt had prolapses and had 3rd degree bladder and uterine prolapses and used a pessary x 15 years prior to her surgery HEr suregury was 06/10/23 she was not aware she would have lifting restrictions of 20 # She has a 40 # dog and she wants to be able to travel she wants to get as strong as she can. She is going to be traveling the end of December. The surgery helped as she was having urge incontinence and overactive bladder, this is better overall. The rectocele repair has helped as she is better able to have a bowel movement. She is worried the cystecele is coming back a little. SHe is using the estrodial but does feel that her tissue is irritated at times. At this time she is not experiencing leakage, she does use a panty liner due to a little bit of fecal smearing . She uses benafiber and align and has a bowel movement every day. She does have IBS and colitis. Treatment Goals Patient/Caregiver Goals pt would like to get as strong as possible and how to lift well PT-OP-C Subjective Start: 09/19/23 08:14 Freq: Status: Active Protocol: Document 10/16/23 09:45 [facility] (Rec: 10/16/23 10:31 [facility] [id number]) OP-PT Subjective Patient Comments Patient Comments she has been having right sided hip pain and she has been walking 3-4 miles in a row. She is not feeling any leaking or pelvic pressure PT-OP-I Pelvic Floor Start: 09/19/23 08:14 Freq: Status: Active Protocol: Document 09/19/23 09:45 [facility] (Rec: 09/19/23 13:29 [facility] [id number]) Pelvic Floor Assessment Urine Pelvic Floor Surgery Yes: laparpscopic assisted vaginal hysterectomy Other Urinary Symptoms surgery continued: vaginal hysterectomy with B salpingecotmy-oophorectomy with anterior/posterior repair with sacrospinous ligament fixation 06/10/23 pt had good success with surgery and is no longer experience urge incontinence symptoms but does feel weak and wants to improve her pelvic floor strength to make sure her surgery keeps her bladder and rectum supported. Pt had a history of grade 3 bladder and uterine prolapse Pelvic Clock Pelvic Clock 12-3 Atrophy Pelvic Clock 3-6 Atrophy Pelvic Clock 6-9 Atrophy Pelvic Clock 9-12 Atrophy Pelvic Clock Other generalized weakness and thinning of the tissue over the rectum Contraction Ability Voluntary Contraction Weak Voluntary Relaxation Weak Manual Muscle Testing Left 2 Manual Muscle Testing Right 2 Manual Muscle Testing Anterior 2 Manual Muscle Testing Posterior 2 Muscle Endurance (Seconds) 6 Comments Pelvic Floor Comments left anterior wall of the levator ani is weaker than the right, there is some swelling noted near the pubic bone which is most likely due to tissue healing still, no signs of prolapse and no obvious scar tissue palpated PT-OP-Q Treatments Start: 09/19/23 08:14 Freq: Status: Active Protocol: Document 10/16/23 09:45 [facility] (Rec: 10/16/23 10:31 [facility] [id number]) Therapeutic Exercises Supine Exercises hip rollouts with theraband Reps/Minutes 2 x 10 reps with level 3 theraband supine ball squeeze with pelvic floor contraction Supine Exercise Name 12.5 and max of 24 uv Reps/Minutes hold x 5 seconds and rest x 10 seconds pelvic floor long holds Reps/Minutes x 10 reps holding 10 seconds and relaxing 10 seconds Comments 12.1 average and 20.5 with wedge Other Exercises quadruped rock backs Reps/Minutes x 20 dynamic adductor stretch Reps/Minutes x 10 reps dyanamic hanstring stretch Reps/Minutes x 10 reps PT-OP-T Assessment and Plan Start: 09/19/23 08:14 Freq: Status: Active Protocol: Document 10/16/23 09:45 [facility] (Rec: 10/16/23 10:31 [facility] [id number]) Physical Therapy Assessment Goals 3 Impairment Decreased endurance of the levator ani Short Term Goal (STG) Kaitlin is able to sustain a pelvic floor contraction x 10 seconds in supine STG Duration 5 weeks Perinatal Technician Goal (LTG) Kailtin is able to sustain a pelvic floor contraction in standing x 5 seconds or better LTG Duration 12 weeks 2 Impairment Decreased strength of the pelvic floor muscles with MMT of 2/5 for all crawford of the levator ani Short Term Goal (STG) Kaitlin is able to tolerate a strenghtening program for the pelvic floor STG Duration 4 weeks Assisted Goal (LTG) Kaitlin is able to increase strength of the levator ani for improved pelvic support by 1 muscle grade or better LTG Duration 12 weeks 1 Impairment pt lacks a home program for progressive pelvic floor training and core stabilization Perinatal Technician Goal (LTG) Kaitlin is Ind with a progressive HEP for both pelvic floor and core stabilization LTG Duration 12 weeks Assessment Summary Assessment worked in both pelvis tipped with wedge and on flat surface and Kaitlin felt more pelvic floor recruitment on a flat surface. Began adding in stretching to open up the hips and Kaitlin is really restricted in a posteriorly rotated position. It is difficult for her to tip her pelvis anteriorly. Continue working on releaseing the hamstrings and adductors as well as pelvic floor strengthening Physical Therapy Plan Frequency and Duration Frequency of Treatment 1x/Week Duration of treatment (weeks) 12 Plan of Care Start Date 09/19/23 Plan of Care End Date 12/12/23 Next Visit Focus/Plan Next Note Type Treatment Note Next Visit Plan review all new exercises next visit, progress as tolerated
--- NOTE | 2023-10-23 12:21 | PT.OTN ---
Current Diagnoses Other specified disorders of muscle (10/23/23) Pelvic muscle wasting (10/23/23) Physical Therapy Treatment Note PT-OP-A Visit Information Start: 09/19/23 08:14 Freq: Status: Active Protocol: Document 10/23/23 11:22 [facility] (Rec: 10/23/23 12:21 [facility] [id number]) Out-Patient Physical Therapy Visit Information Visit Information Visit Type Treatment Note Visit Start Time 11:20 Visit Stop Time 12:00 Visit Number 4 PT-OP-B Current Condition Start: 09/19/23 08:14 Freq: Status: Active Protocol: Document 09/19/23 09:45 [facility] (Rec: 09/19/23 10:33 [facility] [id number]) Current Condition History of Current Condition History of Current Condition pt had prolapses and had 3rd degree bladder and uterine prolapses and used a pessary x 15 years prior to her surgery HEr surgery was 06/10/23 she was not aware she would have lifting restrictions of 20 # She has a 40 # dog and she wants to be able to travel she wants to get as strong as she can. She is going to be traveling the end of December. The surgery helped as she was having urge incontinence and overactive bladder, this is better overall. The rectocele repair has helped as she is better able to have a bowel movement. She is worried the cystecele is coming back a little. SHe is using the estrodial but does feel that her tissue is irritated at times. At this time she is not experiencing leakage, she does use a panty liner due to a little bit of fecal smearing . She uses benafiber and align and has a bowel movement every day. She does have IBS and colitis. Treatment Goals Patient/Caregiver Goals pt would like to get as strong as possible and how to lift well PT-OP-C Subjective Start: 09/19/23 08:14 Freq: Status: Active Protocol: Document 10/23/23 11:22 [facility] (Rec: 10/23/23 12:21 [facility] [id number]) OP-PT Subjective Patient Comments Patient Comments Mehran notes she has been stretching her adductors and this has helped her and is decreasing her hip pain, no complaints of pain and PT-OP-I Pelvic Floor Start: 09/19/23 08:14 Freq: Status: Active Protocol: Document 09/19/23 09:45 [facility] (Rec: 09/19/23 13:29 [facility] [id number]) Pelvic Floor Assessment Urine Pelvic Floor Surgery Yes: laparpscopic assisted vaginal hysterectomy Other Urinary Symptoms surgery continued: vaginal hysterectomy with B salpingecotmy-oophorectomy with anterior/posterior repair with sacrospinous ligament fixation 06/10/23 pt had good success with surgery and is no longer experience urge incontinence symptoms but does feel weak and wants to improve her pelvic floor strength to make sure her surgery keeps her bladder and rectum supported. Pt had a history of grade 3 bladder and uterine prolapse Pelvic Clock Pelvic Clock 12-3 Atrophy Pelvic Clock 3-6 Atrophy Pelvic Clock 6-9 Atrophy Pelvic Clock 9-12 Atrophy Pelvic Clock Other generalized weakness and thinning of the tissue over the rectum Contraction Ability Voluntary Contraction Weak Voluntary Relaxation Weak Manual Muscle Testing Left 2 Manual Muscle Testing Right 2 Manual Muscle Testing Anterior 2 Manual Muscle Testing Posterior 2 Muscle Endurance (Seconds) 6 Comments Pelvic Floor Comments left anterior wall of the levator ani is weaker than the right, there is some swelling noted near the pubic bone which is most likely due to tissue healing still, no signs of prolapse and no obvious scar tissue palpated PT-OP-Q Treatments Start: 09/19/23 08:14 Freq: Status: Active Protocol: Document 10/23/23 11:22 [facility] (Rec: 10/23/23 12:21 [facility] [id number]) Therapeutic Exercises Supine Exercises supine TA march Reps/Minutes x 10 hip rollouts with theraband Reps/Minutes 2 x 10 reps with level 3 theraband supine ball squeeze with pelvic floor contraction Supine Exercise Name 17 average 36 max Reps/Minutes hold x 5 seconds and rest x 10 seconds pelvic floor long holds Supine Exercise Name average 14.6 max 25.2 Reps/Minutes x 10 reps holding 10 seconds and relaxing 10 seconds Other Exercises quadruped TA brace Reps/Minutes x 10 reps dynamic adductor stretch Other Exercise Name pt reports this exercise is working well for her at this time Reps/Minutes x 10 reps PT-OP-T Assessment and Plan Start: 09/19/23 08:14 Freq: Status: Active Protocol: Document 10/23/23 11:22 [facility] (Rec: 10/23/23 12:21 [facility] [id number]) Physical Therapy Assessment Assessment Summary Assessment pt needs to work [place] the [place] and wants to start working on bracing and body mechanics for lifting. I began TA stabilization today and Mehran did well with this. She was educated on bracing with her pelvic floor prior to standing to start working on upright strengthening. Her endurance and pelvic floor strength are improving. Physical Therapy Plan Frequency and Duration Frequency of Treatment 1x/Week Duration of treatment (weeks) 12 Plan of Care Start Date 09/19/23 Plan of Care End Date 12/12/23 Therapeutic Interventions Therapeutic Interventions Home Exercise Program,Patient/ Caregiver Education,Self-Care/ Home Management,Therapeutic Exercises Next Visit Focus/Plan Next Note Type Treatment Note Next Visit Plan review TA stabilization and pelvic floor bracing prior to standing, start working on squats with pelvic floor engagement on the way up and mini plie for hip ER
--- NOTE | 2023-10-30 12:27 | PT.OTN ---
Current Diagnoses Other specified disorders of muscle (10/30/23) Pelvic muscle wasting (10/30/23) Physical Therapy Treatment Note PT-OP-A Visit Information Start: 09/19/23 08:14 Freq: Status: Active Protocol: Document 10/30/23 11:21 [facility] (Rec: 10/30/23 12:27 [facility] [id number]) Out-Patient Physical Therapy Visit Information Visit Information Visit Type Treatment Note Visit Start Time 11:20 Visit Stop Time 12:00 Visit Number 5 PT-OP-B Current Condition Start: 09/19/23 08:14 Freq: Status: Active Protocol: Document 09/19/23 09:45 [facility] (Rec: 09/19/23 10:33 [facility] [id number]) Current Condition History of Current Condition History of Current Condition pt had prolapses and had 3rd degree bladder and uterine prolapses and used a pessary x 15 years prior to her surgery HEr suregury was 06/10/23 she was not aware she would have lifting restrictions of 20 # She has a 40 # dog and she wants to be able to travel she wants to get as strong as she can. She is going to be traveling the end of December. The surgery helped as she was having urge incontinence and overactive bladder, this is better overall. The rectocele repair has helped as she is better able to have a bowel movement. She is worried the cystecele is coming back a little. SHe is using the estrodial but does feel that her tissue is irritated at times. At this time she is not experiencing leakage, she does use a panty liner due to a little bit of fecal smearing . She uses benafiber and align and has a bowel movement every day. She does have IBS and colitis. Treatment Goals Patient/Caregiver Goals pt would like to get as strong as possible and how to lift well PT-OP-C Subjective Start: 09/19/23 08:14 Freq: Status: Active Protocol: Document 10/30/23 11:21 [facility] (Rec: 10/30/23 12:27 [facility] [id number]) OP-PT Subjective Patient Comments Patient Comments Kaitlin notes she walked 4.5 miles yesterday and felt good, she still has a little bit of the right sided hip tightness but she has been doing the adductor stretch. She reports no pelvic heaviness or pressure at this point. PT-OP-I Pelvic Floor Start: 09/19/23 08:14 Freq: Status: Active Protocol: Document 09/19/23 09:45 [facility] (Rec: 09/19/23 13:29 [facility] [id number]) Pelvic Floor Assessment Urine Pelvic Floor Surgery Yes: laparpscopic assisted vaginal hysterectomy Other Urinary Symptoms surgery continued: vaginal hysterectomy with B salpingecotmy-oophorectomy with anterior/posterior repair with sacrospinous ligament fixation 06/10/23 pt had good success with surgery and is no longer experience urge incontinence symptoms but does feel weak and wants to improve her pelvic floor strength to make sure her surgery keeps her bladder and rectum supported. Pt had a history of grade 3 bladder and uterine prolapse Pelvic Clock Pelvic Clock 12-3 Atrophy Pelvic Clock 3-6 Atrophy Pelvic Clock 6-9 Atrophy Pelvic Clock 9-12 Atrophy Pelvic Clock Other generalized weakness and thinning of the tissue over the rectum Contraction Ability Voluntary Contraction Weak Voluntary Relaxation Weak Manual Muscle Testing Left 2 Manual Muscle Testing Right 2 Manual Muscle Testing Anterior 2 Manual Muscle Testing Posterior 2 Muscle Endurance (Seconds) 6 Comments Pelvic Floor Comments left anterior wall of the levator ani is weaker than the right, there is some swelling noted near the pubic bone which is most likely due to tissue healing still, no signs of prolapse and no obvious scar tissue palpated PT-OP-Q Treatments Start: 09/19/23 08:14 Freq: Status: Active Protocol: Document 10/30/23 11:21 [facility] (Rec: 10/30/23 12:27 [facility] [id number]) Therapeutic Exercises Supine Exercises supine TA march Reps/Minutes x 10 hip rollouts with theraband Reps/Minutes 2 x 10 reps with level 3 theraband supine ball squeeze with pelvic floor contraction Supine Exercise Name 18.2 and max of 36 Reps/Minutes hold x 5 seconds and rest x 10 seconds pelvic floor long holds Supine Exercise Name average 14 max of 25 Reps/Minutes x 10 reps holding 10 seconds and relaxing 10 seconds Other Exercises sit-stand with pelvic floor engagement Reps/Minutes cued pt to work on this with standing up from a chair quadruped TA brace Reps/Minutes x 10 reps Comments much better today with improved breathing quadruped rock backs Reps/Minutes x 20 dynamic adductor stretch Other Exercise Name pt reports this exercise is working well for her at this time Reps/Minutes x 10 reps mabelmic hanstring stretch Reps/Minutes x 10 reps PT-OP-T Assessment and Plan Start: 09/19/23 08:14 Freq: Status: Active Protocol: Document 10/30/23 11:21 [facility] (Rec: 10/30/23 12:27 [facility] [id number]) Physical Therapy Assessment Rehab Potential Rehabilitation Potential Excellent Evaluation Complexity Number of Personal Factors/Comorbidities 0 Number of Body Systems Impaired 1-2 Clinical Presentation at Evaluation Stable Impairments Impairments Functional Activities,Soft Tissue Mobility,Strength,Tone Goals 3 Impairment Decreased endurance of the levator ani Short Term Goal (STG) Kaitlin is able to sustain a pelvic floor contraction x 10 seconds in supine STG Duration 5 weeks Jail Goal (LTG) Kaitlin is able to sustain a pelvic floor contraction in standing x 5 seconds or better LTG Duration 12 weeks 2 Impairment Decreased strength of the pelvic floor muscles with MMT of 2/5 for all crawford of the levator ani Short Term Goal (STG) Kaitlin is able to tolerate a strenghtening program for the pelvic floor STG Duration 4 weeks Eyelet Row Marker Goal (LTG) Kaitlin is able to increase strength of the levator ani for improved pelvic support by 1 muscle grade or better LTG Duration 12 weeks 1 Impairment pt lacks a home program for progressive pelvic floor training and core stabilization Eyelet Row Marker Goal (LTG) Kaitlin is Ind with a progressive HEP for both pelvic floor and core stabilization LTG Duration 12 weeks Assessment Summary Assessment Kaitlin has not made it a habit yet to work on sit-stand with pelvic brace but we reviewed it today and she is trying to be mindful of this. TA isolation is improving Physical Therapy Plan Frequency and Duration Frequency of Treatment 1x/Week Duration of treatment (weeks) 12 Plan of Care Start Date 09/19/23 Plan of Care End Date 12/12/23 Therapeutic Interventions Therapeutic Interventions Home Exercise Program,Patient/ Caregiver Education,Self-Care/ Home Management,Therapeutic Exercises Next Visit Focus/Plan Next Note Type Treatment Note Next Visit Plan continue to progress upright strengthening, start squats with theraband, side steps with theraband
--- NOTE | 2023-11-06 12:30 | PT.OTN ---
Current Diagnoses Other specified disorders of muscle (11/06/23) Pelvic muscle wasting (11/06/23) Physical Therapy Treatment Note PT-OP-A Visit Information Start: 09/19/23 08:14 Freq: Status: Active Protocol: Document 11/06/23 11:38 [facility] (Rec: 11/06/23 12:30 [facility] [id number]) Out-Patient Physical Therapy Visit Information Visit Information Visit Type Treatment Note Visit Start Time 11:20 Visit Stop Time 12:05 Visit Number 6 PT-OP-B Current Condition Start: 09/19/23 08:14 Freq: Status: Active Protocol: Document 09/19/23 09:45 [facility] (Rec: 09/19/23 10:33 [facility] [id number]) Current Condition History of Current Condition History of Current Condition pt had prolapses and had 3rd degree bladder and uterine prolapses and used a pessary x 15 years prior to her surgery HEr suregury was 06/10/23 she was not aware she would have lifting restrictions of 20 # She has a 40 # dog and she wants to be able to travel she wants to get as strong as she can. She is going to be traveling the end of December. The surgery helped as she was having urge incontinence and overactive bladder, this is better overall. The rectocele repair has helped as she is better able to have a bowel movement. She is worried the cystecele is coming back a little. SHe is using the estrodial but does feel that her tissue is irritated at times. At this time she is not experiencing leakage, she does use a panty liner due to a little bit of fecal smearing . She uses benafiber and align and has a bowel movement every day. She does have IBS and colitis. Treatment Goals Patient/Caregiver Goals pt would like to get as strong as possible and how to lift well PT-OP-C Subjective Start: 09/19/23 08:14 Freq: Status: Active Protocol: Document 11/06/23 11:38 [facility] (Rec: 11/06/23 12:30 [facility] [id number]) OP-PT Subjective Patient Comments Patient Comments Kaitlin has questions regarding working out in the garden and body mechanics PT-OP-I Pelvic Floor Start: 09/19/23 08:14 Freq: Status: Active Protocol: Document 09/19/23 09:45 [facility] (Rec: 09/19/23 13:29 [facility] [id number]) Pelvic Floor Assessment Urine Pelvic Floor Surgery Yes: laparpscopic assisted vaginal hysterectomy Other Urinary Symptoms surgery continued: vaginal hysterectomy with B salpingecotmy-oophorectomy with anterior/posterior repair with sacrospinous ligament fixation 06/10/23 pt had good success with surgery and is no longer experience urge incontinence symptoms but does feel weak and wants to improve her pelvic floor strength to make sure her surgery keeps her bladder and rectum supported. Pt had a history of grade 3 bladder and uterine prolapse Pelvic Clock Pelvic Clock 12-3 Atrophy Pelvic Clock 3-6 Atrophy Pelvic Clock 6-9 Atrophy Pelvic Clock 9-12 Atrophy Pelvic Clock Other generalized weakness and thinning of the tissue over the rectum Contraction Ability Voluntary Contraction Weak Voluntary Relaxation Weak Manual Muscle Testing Left 2 Manual Muscle Testing Right 2 Manual Muscle Testing Anterior 2 Manual Muscle Testing Posterior 2 Muscle Endurance (Seconds) 6 Comments Pelvic Floor Comments left anterior wall of the levator ani is weaker than the right, there is some swelling noted near the pubic bone which is most likely due to tissue healing still, no signs of prolapse and no obvious scar tissue palpated PT-OP-Q Treatments Start: 09/19/23 08:14 Freq: Status: Active Protocol: Document 11/06/23 11:38 [facility] (Rec: 11/06/23 12:30 [facility] [id number]) Therapeutic Exercises Supine Exercises templates for eccentric coordination Reps/Minutes elevator floors for eccentric control quick contractions Reps/Minutes 2 sec on 2 sec off pelvic floor long holds Supine Exercise Name 19.6 average and max is 53 Sidelying Exercises clam shells Reps/Minutes x 15 reps each side, goal to work to 3 sets of 10 reps Self-Care/Home Management Treatment Education Patient Education Body Mechanics,Home Exercise Program,Joint Protection Other Education education on bracing with the pelvic floor prior to lifting in the garden, pt given a HEP for clam shells and eccentric control PT-OP-T Assessment and Plan Start: 09/19/23 08:14 Freq: Status: Active Protocol: Document 11/06/23 11:38 [facility] (Rec: 11/06/23 12:30 [facility] [id number]) Physical Therapy Assessment Goals 3 Impairment Decreased endurance of the levator ani Short Term Goal (STG) Kaitlin is able to sustain a pelvic floor contraction x 10 seconds in supine STG Duration 5 weeks Adobe Layer Helper Goal (LTG) Kaitlin is able to sustain a pelvic floor contraction in standing x 5 seconds or better LTG Duration 12 weeks 2 Impairment Decreased strength of the pelvic floor muscles with MMT of 2/5 for all crawford of the levator ani Short Term Goal (STG) Kaitlin is able to tolerate a strenghtening program for the pelvic floor STG Duration 4 weeks Adobe Layer Helper Goal (LTG) Kaitlin is able to increase strength of the levator ani for improved pelvic support by 1 muscle grade or better LTG Duration 12 weeks 1 Impairment pt lacks a home program for progressive pelvic floor training and core stabilization Adobe Layer Helper Goal (LTG) Kaitlin is Ind with a progressive HEP for both pelvic floor and core stabilization LTG Duration 12 weeks Assessment Summary Assessment Kaitlin is doing better with sit-stand exercises and trying to make it a habit to engage her pelvic floor with standing . She has not felt any pelvic pressure and right hip is doing better. Physical Therapy Plan Frequency and Duration Frequency of Treatment 1x/Week Duration of treatment (weeks) 12 Plan of Care Start Date 09/19/23 Plan of Care End Date 12/12/23 Therapeutic Interventions Therapeutic Interventions Home Exercise Program,Patient/ Caregiver Education,Self-Care/ Home Management,Therapeutic Exercises Next Visit Focus/Plan Next Visit Plan continue to progress upright strengthening, start squats with theraband, side steps with theraband
--- NOTE | 2023-11-13 12:28 | PT.OTN ---
Current Diagnoses Other specified disorders of muscle (11/13/23) Pelvic muscle wasting (11/13/23) Physical Therapy Treatment Note PT-OP-A Visit Information Start: 09/19/23 08:14 Freq: Status: Active Protocol: Document 11/13/23 11:22 [facility] (Rec: 11/13/23 12:27 [facility] [id number]) Out-Patient Physical Therapy Visit Information Visit Information Visit Type Treatment Note Visit Start Time 11:20 Visit Stop Time 12:00 Visit Number 7 PT-OP-B Current Condition Start: 09/19/23 08:14 Freq: Status: Active Protocol: Document 09/19/23 09:45 [facility] (Rec: 09/19/23 10:33 [facility] [id number]) Current Condition History of Current Condition History of Current Condition pt had prolapses and had 3rd degree bladder and uterine prolapses and used a pessary x 15 years prior to her surgery HEr suregury was 06/10/23 she was not aware she would have lifting restrictions of 20 # She has a 40 # dog and she wants to be able to travel she wants to get as strong as she can. She is going to be traveling the end of December. The surgery helped as she was having urge incontinence and overactive bladder, this is better overall. The rectocele repair has helped as she is better able to have a bowel movement. She is worried the cystecele is coming back a little. SHe is using the estrodial but does feel that her tissue is irritated at times. At this time she is not experiencing leakage, she does use a panty liner due to a little bit of fecal smearing . She uses benafiber and align and has a bowel movement every day. She does have IBS and colitis. Treatment Goals Patient/Caregiver Goals pt would like to get as strong as possible and how to lift well PT-OP-C Subjective Start: 09/19/23 08:14 Freq: Status: Active Protocol: Document 11/13/23 11:22 [facility] (Rec: 11/13/23 12:27 [facility] [id number]) OP-PT Subjective Patient Comments Patient Comments pt has been hiking and gardening, she has had some pain in her right hip but it comes and goes PT-OP-I Pelvic Floor Start: 09/19/23 08:14 Freq: Status: Active Protocol: Document 09/19/23 09:45 [facility] (Rec: 09/19/23 13:29 [facility] [id number]) Pelvic Floor Assessment Urine Pelvic Floor Surgery Yes: laparpscopic assisted vaginal hysterectomy Other Urinary Symptoms surgery continued: vaginal hysterectomy with B salpingecotmy-oophorectomy with anterior/posterior repair with sacrospinous ligament fixation 06/10/23 pt had good success with surgery and is no longer experience urge incontinence symptoms but does feel weak and wants to improve her pelvic floor strength to make sure her surgery keeps her bladder and rectum supported. Pt had a history of grade 3 bladder and uterine prolapse Pelvic Clock Pelvic Clock 12-3 Atrophy Pelvic Clock 3-6 Atrophy Pelvic Clock 6-9 Atrophy Pelvic Clock 9-12 Atrophy Pelvic Clock Other generalized weakness and thinning of the tissue over the rectum Contraction Ability Voluntary Contraction Weak Voluntary Relaxation Weak Manual Muscle Testing Left 2 Manual Muscle Testing Right 2 Manual Muscle Testing Anterior 2 Manual Muscle Testing Posterior 2 Muscle Endurance (Seconds) 6 Comments Pelvic Floor Comments left anterior wall of the levator ani is weaker than the right, there is some swelling noted near the pubic bone which is most likely due to tissue healing still, no signs of prolapse and no obvious scar tissue palpated PT-OP-Q Treatments Start: 09/19/23 08:14 Freq: Status: Active Protocol: Document 11/13/23 11:22 [facility] (Rec: 11/13/23 12:27 [facility] [id number]) Therapeutic Exercises Supine Exercises quick contractions Supine Exercise Name 36.5 max contraction Reps/Minutes 2 sec on 2 sec off pelvic floor long holds Supine Exercise Name 18.9 and max of 40 Reps/Minutes 10 second holds Sidelying Exercises clam shells Reps/Minutes x 15 reps each side, goal to work to 3 sets of 10 reps Standing Exercises standing quad stretch Reps/Minutes hold 30 sec+ sumo squats Reps/Minutes 2 x 10 reps Comments cues to engage the pelvic floor on the way up standing quick pelvic floor contractions Reps/Minutes x 10 reps standing sumo squats Reps/Minutes x 20 Self-Care/Home Management Treatment Education Patient Education Body Mechanics,Home Exercise Program,Joint Protection Other Education body mechanics training for pelvic floor brace with lifting suitcase off the conveyer belt PT-OP-T Assessment and Plan Start: 09/19/23 08:14 Freq: Status: Active Protocol: Document 11/13/23 11:22 [facility] (Rec: 03/27/24 12:27 [facility] [id number]) Physical Therapy Assessment Assessment Summary Assessment I worked with Kaitlin on standing pelvic floor engagement today and practicing bracing her pelvic floor prior to lifing a suitcase as she will be traveling next month to [place] Physical Therapy Plan Frequency and Duration Frequency of Treatment 1x/Week Duration of treatment (weeks) 12 Plan of Care Start Date 09/19/23 Plan of Care End Date 12/12/23 Therapeutic Interventions Therapeutic Interventions Home Exercise Program,Patient/ Caregiver Education,Self-Care/ Home Management,Therapeutic Exercises Next Visit Focus/Plan Next Note Type Treatment Note Next Visit Plan review standing pelvic floor exercises again next visit. Pt has 2 visits left in PT
--- NOTE | 2023-11-27 12:52 | PT.OTN ---
Current Diagnoses Other specified disorders of muscle (11/27/23) Pelvic muscle wasting (11/27/23) Physical Therapy Treatment Note PT-OP-A Visit Information Start: 09/19/23 08:14 Freq: Status: Active Protocol: Document 11/27/23 10:38 [facility] (Rec: 11/27/23 11:20 [facility] [id number]) Out-Patient Physical Therapy Visit Information Visit Information Visit Type Treatment Note Visit Start Time 10:35 Visit Stop Time 11:15 PT-OP-B Current Condition Start: 09/19/23 08:14 Freq: Status: Active Protocol: Document 09/19/23 09:45 [facility] (Rec: 09/19/23 10:33 [facility] [id number]) Current Condition History of Current Condition History of Current Condition pt had prolapses and had 3rd degree bladder and uterine prolapses and used a pessary x 15 years prior to her surgery HEr suregury was 06/10/23 she was not aware she would have lifting restrictions of 20 # She has a 40 # dog and she wants to be able to travel she wants to get as strong as she can. She is going to be traveling the end of December. The surgery helped as she was having urge incontinence and overactive bladder, this is better overall. The rectocele repair has helped as she is better able to have a bowel movement. She is worried the cystecele is coming back a little. SHe is using the estrodial but does feel that her tissue is irritated at times. At this time she is not experiencing leakage, she does use a panty liner due to a little bit of fecal smearing . She uses benafiber and align and has a bowel movement every day. She does have IBS and colitis. Treatment Goals Patient/Caregiver Goals pt would like to get as strong as possible and how to lift well PT-OP-C Subjective Start: 09/19/23 08:14 Freq: Status: Active Protocol: Document 11/27/23 12:48 [facility] (Rec: 11/27/23 12:51 [facility] [id number]) OP-PT Subjective Patient Comments Patient Comments Kaitlin has questions regarding squatting for gardening work. She is working hard on her exercises and is not experiencing any pelvic pressure symptoms Patient Reported Progress Improving PT-OP-I Pelvic Floor Start: 09/19/23 08:14 Freq: Status: Active Protocol: Document 09/19/23 09:45 [facility] (Rec: 09/19/23 13:29 [facility] [id number]) Pelvic Floor Assessment Urine Pelvic Floor Surgery Yes: laparpscopic assisted vaginal hysterectomy Other Urinary Symptoms surgery continued: vaginal hysterectomy with B salpingecotmy-oophorectomy with anterior/posterior repair with sacrospinous ligament fixation 06/10/23 pt had good success with surgery and is no longer experience urge incontinence symptoms but does feel weak and wants to improve her pelvic floor strength to make sure her surgery keeps her bladder and rectum supported. Pt had a history of grade 3 bladder and uterine prolapse Pelvic Clock Pelvic Clock 12-3 Atrophy Pelvic Clock 3-6 Atrophy Pelvic Clock 6-9 Atrophy Pelvic Clock 9-12 Atrophy Pelvic Clock Other generalized weakness and thinning of the tissue over the rectum Contraction Ability Voluntary Contraction Weak Voluntary Relaxation Weak Manual Muscle Testing Left 2 Manual Muscle Testing Right 2 Manual Muscle Testing Anterior 2 Manual Muscle Testing Posterior 2 Muscle Endurance (Seconds) 6 Comments Pelvic Floor Comments left anterior wall of the levator ani is weaker than the right, there is some swelling noted near the pubic bone which is most likely due to tissue healing still, no signs of prolapse and no obvious scar tissue palpated PT-OP-Q Treatments Start: 09/19/23 08:14 Freq: Status: Active Protocol: Document 11/27/23 10:38 [facility] (Rec: 11/27/23 11:20 [facility] [id number]) Therapeutic Exercises Supine Exercises quick contractions Reps/Minutes 2 sec on 2 sec off x 10 reps supine TA march Reps/Minutes x 10 pelvic floor long holds Reps/Minutes 10 second holds Standing Exercises standing quad stretch Reps/Minutes hold 30 sec+ sumo squats Reps/Minutes 2 x 10 reps Comments cues to engage the pelvic floor on the way up standing quick pelvic floor contractions Reps/Minutes x 10 reps standing sumo squats Reps/Minutes x 20 Other Exercises sit-stand with pelvic floor engagement Reps/Minutes cued pt to work on this with standing up from a chair quadruped TA brace Reps/Minutes x 10 reps Comments much better today with improved breathing quadruped rock backs Reps/Minutes x 20 dynamic adductor stretch Other Exercise Name pt reports this exercise is working well for her at this time Reps/Minutes x 10 reps dyanamic hanstring stretch Reps/Minutes x 10 reps Self-Care/Home Management Treatment Education Patient Education Body Mechanics,Home Exercise Program,Joint Protection, Posture Other Education worked on squatting positions for gardening today PT-OP-T Assessment and Plan Start: 09/19/23 08:14 Freq: Status: Active Protocol: Document 11/27/23 12:48 [facility] (Rec: 11/27/23 12:51 [facility] [id number]) Physical Therapy Assessment Assessment Summary Assessment Kaitlin is making good progress with dynamic stabilization exercises. We worked on sit-stand today without use of hands and I am encouraging her to work on pelvic floor recruitment on the way up from sitting. Physical Therapy Plan Frequency and Duration Frequency of Treatment 1x/Week Duration of treatment (weeks) 12 Plan of Care Start Date 09/19/23 Plan of Care End Date 12/12/23 Therapeutic Interventions Therapeutic Interventions Home Exercise Program,Patient/ Caregiver Education,Self-Care/ Home Management,Therapeutic Exercises Next Visit Focus/Plan Next Note Type Treatment Note Next Visit Plan review standing pelvic floor exercises again next visit. Pt has 1 visits left in PT
--- NOTE | 2023-12-04 12:30 | PT.OTN ---
Current Diagnoses Other specified disorders of muscle (12/04/23) Pelvic muscle wasting (12/04/23) Physical Therapy Treatment Note PT-OP-A Visit Information Start: 09/19/23 08:14 Freq: Status: Active Protocol: Document 12/04/23 10:45 [facility] (Rec: 12/04/23 11:20 [facility] [id number]) Out-Patient Physical Therapy Visit Information Visit Information Visit Type Treatment Note Visit Start Time 10:30 Visit Stop Time 11:15 Visit Number 9 PT-OP-B Current Condition Start: 09/19/23 08:14 Freq: Status: Active Protocol: Document 09/19/23 09:45 [facility] (Rec: 09/19/23 10:33 [facility] [id number]) Current Condition History of Current Condition History of Current Condition pt had prolapses and had 3rd degree bladder and uterine prolapses and used a pessary x 15 years prior to her surgery HEr suregury was 06/10/23 she was not aware she would have lifting restrictions of 20 # She has a 40 # dog and she wants to be able to travel she wants to get as strong as she can. She is going to be traveling the end of December. The surgery helped as she was having urge incontinence and overactive bladder, this is better overall. The rectocele repair has helped as she is better able to have a bowel movement. She is worried the cystecele is coming back a little. SHe is using the estrodial but does feel that her tissue is irritated at times. At this time she is not experiencing leakage, she does use a panty liner due to a little bit of fecal smearing . She uses benafiber and align and has a bowel movement every day. She does have IBS and colitis. Treatment Goals Patient/Caregiver Goals pt would like to get as strong as possible and how to lift well PT-OP-C Subjective Start: 09/19/23 08:14 Freq: Status: Active Protocol: Document 12/04/23 10:45 [facility] (Rec: 12/04/23 11:20 [facility] [id number]) OP-PT Subjective Patient Comments Patient Comments Kaitlin brings in her suitcase to go over body mechanics of how to [place]. She is feeling good overall with her exercises and feels that she has met her goals PT-OP-I Pelvic Floor Start: 09/19/23 08:14 Freq: Status: Active Protocol: Document 09/19/23 09:45 [facility] (Rec: 09/19/23 13:29 [facility] [id number]) Pelvic Floor Assessment Urine Pelvic Floor Surgery Yes: laparpscopic assisted vaginal hysterectomy Other Urinary Symptoms surgery continued: vaginal hysterectomy with B salpingecotmy-oophorectomy with anterior/posterior repair with sacrospinous ligament fixation 06/10/23 pt had good success with surgery and is no longer experience urge incontinence symptoms but does feel weak and wants to improve her pelvic floor strength to make sure her surgery keeps her bladder and rectum supported. Pt had a history of grade 3 bladder and uterine prolapse Pelvic Clock Pelvic Clock 12-3 Atrophy Pelvic Clock 3-6 Atrophy Pelvic Clock 6-9 Atrophy Pelvic Clock 9-12 Atrophy Pelvic Clock Other generalized weakness and thinning of the tissue over the rectum Contraction Ability Voluntary Contraction Weak Voluntary Relaxation Weak Manual Muscle Testing Left 2 Manual Muscle Testing Right 2 Manual Muscle Testing Anterior 2 Manual Muscle Testing Posterior 2 Muscle Endurance (Seconds) 6 Comments Pelvic Floor Comments left anterior wall of the levator ani is weaker than the right, there is some swelling noted near the pubic bone which is most likely due to tissue healing still, no signs of prolapse and no obvious scar tissue palpated PT-OP-Q Treatments Start: 09/19/23 08:14 Freq: Status: Active Protocol: Document 12/04/23 10:45 [facility] (Rec: 12/04/23 11:20 [facility] [id number]) Therapeutic Exercises Supine Exercises quick contractions Reps/Minutes 2 sec on 2 sec off x 10 reps supine TA march Reps/Minutes x 10 hip rollouts with theraband Reps/Minutes 2 x 10 reps with level 3 theraband supine ball squeeze with pelvic floor contraction Supine Exercise Name 18.2 and max of 36 Reps/Minutes hold x 5 seconds and rest x 10 seconds pelvic floor long holds Reps/Minutes 10 second holds x 10 reps Sidelying Exercises clam shells Reps/Minutes 2 x 10 reps Standing Exercises sumo squats Reps/Minutes 2 x 10 reps Comments cues to engage the pelvic floor on the way up Other Exercises worked on body mechanics with lifting of Eleanorfermichael suitcase Equipment Used table low position for suitcase Comments Kaitlin was educated in proper body mechanics for lifting sit-stand with pelvic floor engagement Reps/Minutes cued pt to work on this with standing up from a chair Self-Care/Home Management Treatment Education Patient Education Body Mechanics,Home Exercise Program,Joint Protection, Posture Other Education worked on squatting positions for lifting suitcase with traveling PT-OP-T Assessment and Plan Start: 09/19/23 08:14 Freq: Status: Active Protocol: Document 12/04/23 10:30 [facility] (Rec: 12/04/23 12:30 [facility] [id number]) Physical Therapy Assessment Goals 3 Impairment Decreased endurance of the levator ani Short Term Goal (STG) Kaitlin is able to sustain a pelvic floor contraction x 10 seconds in supine goal met STG Duration 5 weeks Fpc Goal (LTG) Kaitlin is able to sustain a pelvic floor contraction in standing x 5 seconds or better pt is working on this goal and will continue to work on this as standing is more difficult for her LTG Duration 12 weeks 2 Impairment Decreased strength of the pelvic floor muscles with MMT of 2/5 for all crawford of the levator ani Short Term Goal (STG) Kaitlin is able to tolerate a strenghtening program for the pelvic floor goal met STG Duration 4 weeks Distribution Agent Goal (LTG) Kaitlin is able to increase strength of the levator ani for improved pelvic support by 1 muscle grade or better goal met LTG Duration 12 weeks 1 Impairment pt lacks a home program for progressive pelvic floor training and core stabilization Distribution Agent Goal (LTG) Kaitlin is Ind with a progressive HEP for both pelvic floor and core stabilization goal met LTG Duration 12 weeks Assessment Summary Assessment Kaitlin has been seen for pelvic floor and core strengthening s/p hysterectomy and anterior/posterior repair . She has done really well with her home program and the strengh of her pelvic floor is improved. She is able to demonstrate improved pelvic floor endurance with ability to sustain a pelvic floor contraction x 10 seconds in supine. She will continue working on improving this endurance in upright positions as well. Kaitlin denies any complaints of pelvic pressure or heaviness. She has been able to return to hiking in the [place]. At this point Kaitlin is I with her HEP and will be discharged from PT Physical Therapy Plan Discharge Physical Therapy Discharge Reasons Goals Met
== END 2023-12-09 11:10 | disposition home or self-care (01) ==
LOC: PHYS 10:30
PROVIDERS: Family Provider Internal Medicine; PCP Internal Medicine; Referring Provider Obstetrics & Gynecology; Visit Provider Obstetrics & Gynecology
DX: M62.89 Other specified disorders of muscle (principal); N81.84 Pelvic muscle wasting
CPT/HCPCS: 97110; 97140; 97161; 97535

== ENCOUNTER → 2024-01-31 06:58 | Outpatient (CLI) | payer MEDICARE, SELFPAY ==
[2023-07-26 13:53] VITALS: BMI 24.7
[2024-01-31 09:18] LABS: Alanine Aminotransferase 24 IU/L (<35); Albumin 4.3 g/dL (3.5-5.0); Albumin Globulin Ratio 1.4 (1.0-2.8); Alkaline Phosphatase 78 U/L (38-126); Aspartate Aminotransferase 28 IU/L (14-36); BUN Creatinine Ratio 28.7 (6-22); Bilirubin Total 0.5 mg/dL (0.2-1.3); Blood Urea Nitrogen 25 mg/dL (7-17); Calcium 9.4 mg/dL (8.4-10.2); Carbon Dioxide 28 mmol/L (22-32); Chloride 107 mmol/L (98-107); Cholesterol 216 mg/dL (140-199); Estimated Glomerular Filt Rate > 60 mL/min (>60); Glucose 85 mg/dL (80-110); HDL Cholesterol 51 mg/dL (40-60); HEMOLYSIS < 15 (0-50); LDL Cholesterol Calculated 119 mg/dL (<100); Potassium 4.3 mmol/L (3.4-5.1); Sodium 141 mmol/L (137-145); Total Protein 7.3 g/dL (6.3-8.2); Triglycerides 230 mg/dL (35-150)
[2024-01-31 09:30] LABS: Free T4, Direct Thyroxine 0.84 ng/dL (0.78-2.19); Vitamin D 25 Hydroxy (D3) 37.9 ng/mL (30.0-100.0)
[2024-01-31 09:44] LABS: Thyroid Stimulating Hormone 0.792 uIU/mL (0.47-4.68)
== END ==
PROVIDERS: Family Provider Internal Medicine; PCP Internal Medicine; Referring Provider Internal Medicine; Visit Provider Internal Medicine
DX: I10 Essential (primary) hypertension (principal); E55.9 Vitamin D deficiency, unspecified; E78.5 Hyperlipidemia, unspecified; E03.9 Hypothyroidism, unspecified
CPT/HCPCS: 36415; 80053; 80061; 82306; 84439; 84443

== ENCOUNTER → 2024-02-12 11:43 | Outpatient (CLI) | payer MEDICARE, SELFPAY ==
[2023-07-26 13:53] VITALS: BMI 24.7
--- NOTE | 2024-02-12 11:44 | DI.RAD.S_ITS ---
PROCEDURE: XR DEXA AXIAL SKELETON INDICATIONS: osteoporosis COMPARISON: [facility], , DEXA AXIAL SKELETON, 01/29/2017, 14:29. FINDINGS: Lumbar Spine: Bone mineral density 0.895 g/cm2, T score -1.3. Left Hip: Bone mineral density 0.838 g/cm2, T score -0.9. Left Femoral Neck: Bone mineral density 0.718 g/cm2, T score -1.2. Right Hip: Bone mineral density 0.774 g/cm2, T score -1.4. Right Femoral Neck: Bone mineral density is 0.665 g/cm2, T score -1.7. Fracture Risk Calculation (when applicable): 10-year fracture risk of a major osteoporotic fracture 8.9% and of a hip fracture 1.0%. (T score greater or equal to -1.0 to: NORMAL) (T score from -1.1 to -2.4: OSTEOPENIA) (T score less than or equal to -2.5: OSTEOPOROSIS) IMPRESSION: Osteopenia Follow-up guidelines as follows: Osteoporosis: Consider a repeat DEXA and Vertebral Fracture Assessment (VFA) exam in 2 years or sooner if medically necessary, to reassess this patient's status. Osteopenia: Consider a repeat DEXA in 2-3 years to reassess this patient's status, or if there is a new clinical indication. Normal: Consider a repeat DEXA in 5 years or sooner, or if there is a new clinical indication. All treatment decisions require clinical judgment and consideration of individual patient factors, including patient preferences, comorbidities, previous drug use, risk factors not captured in the FRAX model (e.g., frailty, falls, vitamin D deficiency, increased bone turnover, interval significant decline in bone density ) and possible under- or over-estimation of fracture risk by FRAX. In addition, the NOF Guide recommends that FDA-approved medical therapies be considered in postmenopausal women and men age >= 50 years with a: * Hip or vertebral (clinical or morphometric) fracture * T-score of <=-2.5 at the spine or hip * Ten-year fracture probability by FRAX of >= 3% for hip fracture or >=20% for major osteoporotic fracture. People with diagnosed cases of osteoporosis or at high risk for fracture should have regular bone mineral density tests. For patients eligible for Medicare, routine testing is allowed once every 2 years. The testing frequency can be increased to one year for patients who have rapidly progressing disease, those who are receiving or discontinuing medical therapy to restore bone mass, or have additional risk factors. Dictated by: Octaviano Palma M.D. on 02/12/2024 at 13:42 Approved by: Octaviano Palma M.D. on 02/12/2024 at 13:44
== END ==
PROVIDERS: Family Provider Internal Medicine; PCP Internal Medicine; Referring Provider Internal Medicine; Visit Provider Internal Medicine
DX: M85.89 Other specified disorders of bone density and structure, multiple sites (principal)
CPT/HCPCS: 77080

== ENCOUNTER → 2024-06-02 14:17 | Outpatient (CLI) | payer MEDICARE, SELFPAY ==
[2023-07-26 13:53] VITALS: BMI 24.7
--- NOTE | 2024-06-02 14:18 | DI.RAD.S_ITS ---
PROCEDURE: XR HIP W PEL IF DONE RT 2V INDICATIONS: r hip pain TECHNIQUE: Two views COMPARISON: None. FINDINGS: Bones: There are no osseous abnormalities. SI and hip joints: Mild degenerative change present in both SI and hip joints. Mild L4-5 and L5-S1 degenerative disc disease noted. Soft tissues: No soft tissue swelling, calcification or mass. IMPRESSION: Degeneration Dictated by: Nando Nunez M.D. on 06/03/2024 at 10:33 Approved by: Nando Nunez M.D. on 06/03/2024 at 10:34
== END ==
PROVIDERS: Family Provider Internal Medicine; PCP Internal Medicine; Referring Provider Internal Medicine; Visit Provider Internal Medicine
DX: M25.551 Pain in right hip (principal); M51.369 Other intervertebral disc degeneration, lumbar region without mention of lumbar back pain or lower extremity pain; M51.379 Other intervertebral disc degeneration, lumbosacral region without mention of lumbar back pain or lower extremity pain
CPT/HCPCS: 73502

== ENCOUNTER → 2024-07-31 14:11 | Outpatient (CLI) | payer MEDICARE, SELFPAY ==
[2023-07-26 13:53] VITALS: BMI 24.7
--- NOTE | 2024-07-31 14:12 | DI.MG.S_ITS ---
BILATERAL DIGITAL SCREENING MAMMOGRAM 3D/2D WITH CAD: 07/31/2024 CLINICAL: Routine screening. Family history of breast cancer. Comparison is made to exams dated: 07/16/2023 mammogram, 07/06/2022 mammogram, and 07/04/2021 mammogram - [facility]. The breasts are heterogeneously dense, which may obscure small masses (category c / 51-75% glandular tissue). Current study was also evaluated with a Computer Aided Detection (CAD) system. There are benign calcifications in both breasts. There also are biopsy clips in the left breast. No significant masses, calcifications, or other findings are seen in either breast. There has been no significant interval change. IMPRESSION: BENIGN There is no mammographic evidence of malignancy. A 1 year screening mammogram is recommended. Based on the Tyrer Cuzick model (a risk assessment model) the patient's lifetime risk is 9.8% and her 10 year risk is 5.8%. According to the ACR, ACS, and NCCN guidelines, an annual breast MRI exam along with mammogram is recommended if the patient's lifetime risk is 20% or greater. This exam was interpreted at Station ID: [id number]. NOTE: For mammograms, a report in lay terms will be sent to the patient. Approximately 15% of breast malignancies will not be visualized mammographically. In the management of a palpable breast mass, a negative mammogram must not discourage biopsy of a clinically suspicious lesion. Electronically Signed By: Marilin blancas/randall:07/31/2024 17:14:37 copy to: Dario Loving letter sent: Normal Exam ACR BI-RADS Category 2: Benign
== END ==
PROVIDERS: Family Provider Internal Medicine; PCP Internal Medicine; Referring Provider Internal Medicine; Visit Provider Internal Medicine
DX: Z12.31 Encounter for screening mammogram for malignant neoplasm of breast (principal); Z80.3 Family history of malignant neoplasm of breast; R92.333 Mammographic heterogeneous density, bilateral breasts
CPT/HCPCS: 77063; 77067

== ENCOUNTER → 2024-09-23 07:41 | Outpatient (CLI) | payer MEDICARE, SELFPAY ==
[2023-07-26 13:53] VITALS: BMI 24.7
[2024-09-23 08:14] LABS: Alanine Aminotransferase 41 IU/L (<35); Albumin 4.4 g/dL (3.5-5.0); Albumin Globulin Ratio 1.5 (1.0-2.8); Alkaline Phosphatase 68 U/L (38-126); Aspartate Aminotransferase 41 IU/L (14-36); BUN Creatinine Ratio 18.3 (6-22); Bilirubin Total 0.4 mg/dL (0.2-1.3); Blood Urea Nitrogen 15 mg/dL (7-17); Calcium 9.4 mg/dL (8.4-10.2); Carbon Dioxide 26 mmol/L (22-32); Chloride 105 mmol/L (98-107); Cholesterol 175 mg/dL (140-199); Estimated Glomerular Filt Rate > 60 mL/min (>60); Globulin 2.9 g/dL (1.7-4.1); Glucose 103 mg/dL (80-110); HDL Cholesterol 53 mg/dL (40-60); HEMOLYSIS < 15 (0-50); LDL Cholesterol Calculated 83 mg/dL (<100); Potassium 4.1 mmol/L (3.4-5.1); Sodium 140 mmol/L (137-145); Total Protein 7.3 g/dL (6.3-8.2); Triglycerides 194 mg/dL (35-150)
== END ==
PROVIDERS: Family Provider Internal Medicine; PCP Internal Medicine; Referring Provider Internal Medicine; Visit Provider Internal Medicine
DX: I10 Essential (primary) hypertension (principal); E78.5 Hyperlipidemia, unspecified
CPT/HCPCS: 36415; 80053; 80061

== ENCOUNTER → 2024-12-12 11:21 | Outpatient (CLI) | payer MEDICARE, SELFPAY ==
[2024-09-29 14:09] VITALS: BMI 24.7
[2024-12-12 12:41] LABS: Appearance Urine UA CLEAR; Bilirubin Urine UA NEGATIVE (NEGATIVE); Color Urine UA YELLOW; Glucose Urine UA NEGATIVE (Negative); Ketones Urine UA NEGATIVE (NEGATIVE); Leukocyte Esterase Urine UA NEGATIVE (NEGATIVE); Nitrite Urine UA NEGATIVE (Negative); Occult Blood Urine UA NEGATIVE (Negative); Protein Urine UA NEGATIVE (Negative); Urobilinogen Urine UA 0.2 E.U./dL (0.2)
[2024-12-12 13:13] LABS: Bacteria Urine None Seen; RBC Urine None Seen (0-5/HPF); Squamous Epithelial Cell Urine 1-5 /HPF (0-5/HPF); Urine Volume 10mL (spun); WBC Urine None Seen (0-5/HPF)
[2024-12-12 13:14] LABS: Culture Indicated Urine Cult Not Indicated
== END ==
PROVIDERS: Family Provider Internal Medicine; PCP Internal Medicine; Referring Provider Internal Medicine; Visit Provider Internal Medicine
DX: N39.0 Urinary tract infection, site not specified (principal)
CPT/HCPCS: 81001

== ENCOUNTER → 2025-02-11 10:09 | Outpatient (CLI) | payer MEDICARE, SELFPAY ==
[2024-09-29 14:09] VITALS: BMI 24.7
--- NOTE | 2025-02-11 10:12 | DI.RAD.S_ITS ---
PROCEDURE: XR CERVICAL SPINE 2V OR 3V INDICATIONS: neck pain TECHNIQUE: Three views of the cervical spine were acquired. COMPARISON: None. FINDINGS: Cervical spine curvature and alignment: Normal. Bones: There are no osseous abnormalities. Disc spaces: Severe C3-4 C4-5 C5-6 mild C C6-7 severe C7-T1 degenerative disc disease. Severe C3-4 through C7-T1 degenerative facet disease Soft tissues: No soft tissue swelling, calcification or mass. IMPRESSION: Degeneration Dictated by: Nando Nunez M.D. on 02/11/2025 at 13:06 Approved by: Nando Nunez M.D. on 02/11/2025 at 13:07
== END ==
PROVIDERS: PCP Internal Medicine; Referring Provider Internal Medicine; Visit Provider Internal Medicine
DX: M50.31 Other cervical disc degeneration, high cervical region (principal); M47.812 Spondylosis without myelopathy or radiculopathy, cervical region
CPT/HCPCS: 72040

== ENCOUNTER → 2025-03-26 07:35 | Outpatient (CLI) | payer MEDICARE, SELFPAY ==
[2024-09-29 14:09] VITALS: BMI 24.7
[2025-03-26 08:42] LABS: Alanine Aminotransferase 40 IU/L (<35); Albumin 4.5 g/dL (3.5-5.0); Albumin Globulin Ratio 1.6 (1.0-2.8); Alkaline Phosphatase 66 U/L (38-126); Blood Urea Nitrogen 18 mg/dL (7-17); Calcium 9.5 mg/dL (8.4-10.2); Carbon Dioxide 26 mmol/L (22-32); Chloride 104 mmol/L (98-107); Cholesterol 180 mg/dL (140-199); Estimated Glomerular Filt Rate > 60 mL/min (>60); Globulin 2.9 g/dL (1.7-4.1); Glucose 90 mg/dL (70-99); HDL Cholesterol 49 mg/dL (40-60); HEMOLYSIS < 15 (0-50); Potassium 4.1 mmol/L (3.4-5.1); Sodium 141 mmol/L (137-145); Total Protein 7.4 g/dL (6.3-8.2); Triglycerides 191 mg/dL (35-150)
[2025-03-26 08:54] LABS: Free T3, Triiodothyronine Free 3.03 pg/mL (2.77-5.27)
[2025-03-26 09:07] LABS: Thyroid Stimulating Hormone 1.64 uIU/mL (0.47-4.68)
== END ==
PROVIDERS: PCP Internal Medicine; Referring Provider Internal Medicine; Visit Provider Internal Medicine
DX: I10 Essential (primary) hypertension (principal); E78.5 Hyperlipidemia, unspecified; E03.9 Hypothyroidism, unspecified
CPT/HCPCS: 36415; 80053; 80061; 84443; 84481

== ENCOUNTER 2025-06-12 06:25 | Emergency (ER) | payer MEDICARE, SELFPAY ==
[2024-09-29 14:09] VITALS: BMI 24.7
[2025-06-12] VITALS (15 sets, daily range): BP systolic 139–167; BP diastolic 68–103; PULSE 68–87; RESP 16–25; TEMP 36.6; O2SAT 94–97; BMI 25.2
[2025-06-12 07:03] LABS: Add Manual Diff / Slide Review NO; Hematocrit 41.9 % (36-46); Hemoglobin 14.3 g/dL (12.0-16.0); Lymphocytes Absolute Auto 1800 /uL (1100-4500); Mean Corpuscular HGB Conc 34.1 % (30-36); Mean Corpuscular Hemoglobin 30.2 PG (26-34); Mean Corpuscular Volume 88.8 fL (80-100); Platelet Count 222 X10^3/uL (150-400)
[2025-06-12 07:29] LABS: Alanine Aminotransferase 51 IU/L (<35); Albumin 4.8 g/dL (3.5-5.0); Albumin Globulin Ratio 1.3 (1.0-2.8); Alkaline Phosphatase 79 U/L (38-126); Blood Urea Nitrogen 18 mg/dL (7-17); Calcium 9.5 mg/dL (8.4-10.2); Carbon Dioxide 25 mmol/L (22-32); Chloride 105 mmol/L (98-107); Estimated Glomerular Filt Rate > 60 mL/min (>60); Globulin 3.6 g/dL (1.7-4.1); Glucose 135 mg/dL (70-99); HEMOLYSIS < 15 (0-50); Lipase 252 U/L (23-300); Potassium 3.9 mmol/L (3.4-5.1); Sodium 140 mmol/L (137-145); Total Protein 8.4 g/dL (6.3-8.2)
--- NOTE | 2025-06-12 08:21 | ED.ABDPAIN ---
HPI - Abdominal Pain General Chief Complaint: Abdominal Pain Stated Complaint: Bleeding with having bowel movement; cramping Time Seen by Provider: 06/12/25 06:42 Source: patient Mode of arrival: Ambulatory History of Present Illness HPI narrative: Patient is a 69-year-old female history of hypothyroid hypertension hyperlipidemia presenting today with abdominal cramping and rectal bleeding. She reports that she got about 6 times since 2:00 a.m. with pretty severe cramping. She got diaphoretic almost passed out. She is not on antiplatelet or anticoagulation medications. She does have a history of diverticulitis when this has happened to her once before. She reports that she has had a colonoscopy within the last few years and says that she did not have any problems. No nausea no vomiting. Related Data Home Medications ?Medication ?Instructions ?Recorded ?Confirmed propylene glycol [Systane Balance] 1 drp ophthalmic (eye) BID 02/22/22 06/11/25 Bifidobacterium infantis 4 mg 4 mg PO DAILY 02/03/24 06/11/25 capsule (Align (B.infantis)) coenzyme Q10 300 mg capsule (Co 300 mg PO DAILY 02/03/24 06/11/25 Q-10) wheat dextrin 3 gram/4 gram oral PO Constipation 02/03/24 06/11/25 powder packet (Benefiber Sugar Free (dextrin)) CMP Estradiol Vaginal Cream .011% vaginal 03/10/24 06/11/25 antiarthritic combination no.2 900 mg PO 01/28/25 06/11/25 mg tablet (glucosamine-chondroitin) Previous Rx's ?Medication ?Instructions ?Recorded scopolamine base 1 mg over 3 days 1 patch transdermal Q3D PRN motion 03/05/24 transdermal patch sickness #8 ea estradiol 0.01% (0.1 mg/gram) 0.5 g vaginal 2XW #42.5 grams 08/03/24 vaginal cream (Estrace) ondansetron 4 mg disintegrating 4 mg PO Q6H PRN nausea and 12/10/24 tablet vomiting #10 tabs atorvastatin 20 mg tablet (Lipitor) 20 mg PO HS #90 tabs 12/24/24 levothyroxine 75 mcg tablet 75 mcg PO DAILY #90 tabs 12/24/24 (Synthroid) lisinopril 10 mg tablet 10 mg PO BEDTIME #90 tabs 12/24/24 cyclobenzaprine 5 mg tablet 5 mg PO BEDTIME #30 tabs 02/11/25 diltiazem HCl 180 mg 180 mg PO DAILY #90 caps 02/11/25 capsule,extended release 24 hr (Cartia XT) oxyquinoline 0.025 %-sodium lauryl 1 ea vaginal .weekly #113.4 grams 04/23/25 sulfate 0.01 % vaginal gel meloxicam 15 mg tablet 15 mg PO DAILY PRN for pain #30 05/03/25 tabs ciprofloxacin HCl 500 mg tablet 500 mg PO BID #14 tabs 06/12/25 (Cipro) metronidazole 500 mg tablet 500 mg PO Q8H 7 days #21 tabs 06/12/25 Allergies Allergy/AdvReac Type Severity Reaction Status Date / Time No Known Drug Allergies Allergy Verified 06/12/25 06:34 Patient History Medical History Neck pain Primary osteoarthritis of right hip Vaginal vault prolapse Osteopenia Pelvic relaxation Cystocele with uterine descensus Urge incontinence Ovarian mass Cystocele with rectocele Hemorrhoid History of COVID-19 (08/2022) Anesthesia complication Uterovaginal prolapse, unspecified (12/06/11) Other chronic nonalcoholic liver disease (08/19/00) Prolapsed uterus (2004) Liver disease Pelvic floor weakness (2004) Ear pain, left IBS (irritable bowel syndrome) (1979) Urinary incontinence Fibroids (1987) Vertigo (2013) Hayfever (1969) TMJ (temporomandibular joint syndrome) (1979) Rectal prolapse (2004) Prolapsed bladder (2004) Heart murmur (1989) Cardiac arrhythmia Precancerous skin lesion Diverticulosis of colon (10/04/17) Lactose intolerance in adult (07/07/15) Irritable bowel syndrome with diarrhea (07/07/15) Depression (08/27/14) Acquired hypothyroidism (12/06/11) Hypertension (12/06/11) Hyperlipidemia (12/06/11) Surgical History S/P bilateral salpingo-oophorectomy S/P vaginal hysterectomy History of surgical procedure on mouth History of surgery () History of liver biopsy (2003) History of surgery (11/13/18) History of colonoscopy (08/2017) History of urinary tract surgery (~1960) History of breast surgery (1987) Family History Father Cancer Bladder cancer Mother Heart disease Hypertension Mental health problem Melanoma Alzheimer's disease Congestive heart failure Sister Chapo-Creutzfeldt disease Grandfather Flu Grandmother Flu Grandfather No problems noted. Grandmother Stroke Social History marital status: number of children: 2 household members: spouse lives independently: Yes caregiver/support person: No housing: house pets and animals: Yes education level: college occupational status: employed travel history: over 6 months ago leisure activities: exercise and other Smoking Status: Never smoker Tobacco: How many years used: 0 quit status: quit date established second hand exposure: No alcohol intake: current substance use type: does not use Smoking Status: Never smoker alcohol intake frequency: holidays/special occasions only Exam Initial Vital Signs Initial Vital Signs: Vital Signs Temperature 97.8 F 06/12/25 06:34 Pulse Rate 80 06/12/25 06:34 Respiratory Rate 18 06/12/25 06:34 Blood Pressure 139/79 06/12/25 06:34 Pulse Oximetry 95 06/12/25 06:34 Oxygen Delivery Method Room Air 06/12/25 06:34 GENERAL: Alert pleasant 69-year-old female and in [no acute] distress. HEENT: Head atraumatic,EOMI, pupils reactive, face symmetric, [moist] mucous membranes CARDIOVASCULAR: Regular rate and rhythm without murmurs, rubs or gallops. RESPIRATORY: Breath sounds equal bilaterally, no wheezes rales or rhonchi. ABDOMEN: Soft, mainly tender across lower abdomen no guarding or rebound EXTREMITIES: Normal range of motion, no clubbing or edema. Neurovascularly intact NEUROLOGICAL: Alert and oriented x4.Normal gait and speech. Cranial nerves II through XII grossly intact. SKIN: Warm, dry, no laceration, no petechiae, no rashes or lesions. Course Orders Ordered: ED Orders 06/12/25 06:50 Complete Blood Count AUTO DIFF Stat Comprehensive Metabolic Panel Stat Lipase Stat 06/12/25 08:30 CT abdomen pelvis w con Stat 06/12/25 09:05 Lactate (Lactic Acid) Stat Discontinued Medications Ciprofloxacin (Ciprofloxacin 250 Mg Tablet) 500 mg PO NOW ONE Stop: 06/12/25 10:07 Last Admin: 06/12/25 10:19 Dose: 500 mg Documented By: LILLY Metronidazole (Metronidazole 500 Mg Tablet) 500 mg PO NOW ONE Stop: 06/12/25 10:07 Last Admin: 06/12/25 10:19 Dose: 500 mg Documented By: LILLY Vital Signs Vital signs: Vital Signs - 8 hr 06/12/25 06:34 06/12/25 06:51 06/12/25 06:52 Temperature 97.8 F Pulse Rate 80 85 68 Respiratory Rate 18 Blood Pressure 139/79 Pulse Oximetry 95 94 95 Oxygen Delivery Method Room Air 06/12/25 06:52 06/12/25 07:00 06/12/25 07:00 Temperature Pulse Rate 83 Respiratory Rate Blood Pressure 145/68 H 161/72 H Pulse Oximetry 95 Oxygen Delivery Method 06/12/25 07:30 06/12/25 07:31 06/12/25 07:31 Temperature Pulse Rate 77 68 Respiratory Rate 20 16 Blood Pressure 166/72 H Pulse Oximetry 95 96 Oxygen Delivery Method 06/12/25 07:59 06/12/25 07:59 06/12/25 08:00 Temperature Pulse Rate 79 86 Respiratory Rate 18 24 Blood Pressure 166/77 H Pulse Oximetry 96 95 Oxygen Delivery Method 06/12/25 08:01 06/12/25 08:01 06/12/25 08:30 Temperature Pulse Rate 87 Respiratory Rate 19 Blood Pressure 167/77 H 148/85 H Pulse Oximetry 97 Oxygen Delivery Method 06/12/25 08:30 06/12/25 09:00 06/12/25 09:00 Temperature Pulse Rate 72 73 Respiratory Rate 18 17 Blood Pressure 150/73 H Pulse Oximetry 95 94 Oxygen Delivery Method 06/12/25 09:34 06/12/25 09:36 06/12/25 09:36 Temperature Pulse Rate 74 Respiratory Rate 22 Blood Pressure 147/95 H Pulse Oximetry 95 95 Oxygen Delivery Method 06/12/25 10:00 06/12/25 10:01 06/12/25 10:01 Temperature Pulse Rate 82 74 Respiratory Rate 24 25 H Blood Pressure 150/103 H Pulse Oximetry 96 96 Oxygen Delivery Method MDM - Abdominal Pain Lab Data 06/12/25 06:50 06/12/25 06:50 Labs: Lab Results 06/12/25 06/12/25 Range/Units 06:50 09:05 WBC 13.0 H (4.5-11.0) X10^3/uL RBC 4.72 (4.0-5.2) X10^6/uL Hgb 14.3 (12.0-16.0) g/dL Hct 41.9 (36-46) % MCV 88.8 (80-100) fL MCH 30.2 (26-34) PG MCHC 34.1 (30-36) % RDW 12.7 (11.6-14.8) % Plt Count 222 (150-400) X10^3/uL Neut % (Auto) 80.2 H (50-75) % Lymph % (Auto) 13.6 L (25-40) % [place] % (Auto) 5.3 (3-14) % Eos % (Auto) 0.3 L (2-4) % Baso % (Auto) 0.6 (0-2) % Neut # (Auto) 86535 H (4594-2476) /uL Lymph # (Auto) 1800 (1029-3126) /uL [place] # (Auto) 700 (0-900) /uL Eos # (Auto) 0 (0-450) /uL Baso # (Auto) 100 (0-100) /uL Sodium 140 (137-145) mmol/L Potassium 3.9 (3.4-5.1) mmol/L Chloride 105 (98-107) mmol/L Carbon Dioxide 25 (22-32) mmol/L BUN 18 H (7-17) mg/dL Creatinine 0.83 (0.52-1.04) mg/dL Estimated GFR > 60 (>60) mL/min BUN/Creatinine Ratio 21.7 (6-22) Glucose 135 H (70-99) mg/dL Lactate 1.7 (0.7-2.1) mmol/L Calcium 9.5 (8.4-10.2) mg/dL Total Bilirubin 0.5 (0.2-1.3) mg/dL AST 51 H (14-36) IU/L ALT 51 H (<35) IU/L Alkaline Phosphatase 79 (38-126) U/L Total Protein 8.4 H (6.3-8.2) g/dL Albumin 4.8 (3.5-5.0) g/dL Globulin 3.6 (1.7-4.1) g/dL Albumin/Globulin Ratio 1.3 (1.0-2.8) Lipase 252 (23-300) U/L Point of care testing: Urine Dip Bedside Urine Glucose Negative Bedside Urine Bilirubin - Negative Bedside Urine Ketone - Negative Urine Specific [place] 1.020 Bedside Urine Occult Blood - Negative Bedside Urine pH 6.0 Bedside Urine Protein - Negative Bedside Urine Urobilinogen - Negative Bedside Urine Nitrite - Negative Bedside Urine Leukocytes - Negative Esterase Imaging Data CT scan - abdomen/pelvis: Radiologist's Impression: PROCEDURE: CT ABDOMEN PELVIS W CON INDICATIONS: GI bleeding with cramping TECHNIQUE: After the administration of intravenous contrast, axial sections acquired from the lung bases to the pubic symphysis. Coronal and sagittal reformats were performed. For radiation dose reduction, the following was used: automated exposure control, adjustment of mA and/or kV according to patient size. COMPARISON: [facility], CT, CT ABDOMEN PELVIS W CON, 04/19/2023, 14:17. FINDINGS: Image quality: Diagnostic. Lower Chest: No significant findings. ABDOMEN: Liver: No solid mass. Hepatic steatosis. Gallbladder: No radiopaque gallstones or wall thickening. Biliary ducts: No biliary dilation. Pancreas: No ductal dilation. Spleen: Size is within normal limits. Adrenal Glands: No adrenal nodules. Kidneys and Ureters: No hydronephrosis. No solid mass. No complex renal cystic lesion which requires follow up. Left renal cortical scarring. Multiple simple cysts and subcentimeter hypodensities which are too small to accurately characterize. Stomach and Bowel: Diverticulosis with mild inflammation surrounding the distal descending and proximal sigmoid colon, may represent early diverticulitis. There is wall thickening versus decompression of the descending and sigmoid colon. Normal appendix. No small bowel obstruction. Peritoneum: No abnormal intraperitoneal fluid. No free air. Ventral Wall: No significant ventral hernia. Abdominal Nodes: No retroperitoneal or mesenteric adenopathy by size criteria. Vessels: Aorta and inferior vena cava are normal in size. Atherosclerotic vascular calcifications. PELVIS: Pelvic Organs: Unremarkable. Bladder: No bladder wall thickening, accounting for underdistention. Pelvic Nodes: No enlarged lymph nodes. Miscellaneous: No inguinal hernias are seen. Bones: No aggressive osseous abnormality. IMPRESSION: 1. Wall thickening versus decompression of the descending and sigmoid colon may represent nonspecific colitis versus simply decompressed bowel. Mild associated inflammatory changes of the distal descending and proximal sigmoid concerning for early diverticulitis. 2. Hepatic steatosis. 3. Please see above for additional findings. Dictated by: Zach Roman M.D. on 06/12/2025 at 9:43 Approved by: Zach Roman M.D. on 06/12/2025 at 9:47 [facility] Narrative Medical decision making narrative: 69-year-old female presenting today with abdominal pain cramping and rectal bleeding. Blood work has been reviewed Mild leukocytosis WBC of 13 no significant anemia hemoglobin 14.3 hematocrit 41.9 platelets 222 CMP no electrolyte abnormality, creatinine 0.8 Bilirubin liver enzymes baseline without significant change CT abdomen pelvis confirms non complicated diverticulitis. At this time patient's vitals are stable she is not anemic mild leukocytosis of 13. My suspect rectal bleeding is secondary to diverticulitis. She has had no further bowel movements or rectal bleeding while in the emergency department. She is given her 1st dose of antibiotics here in the ED. At this time she does not outpatient with antibiotics. She is given strict return precautions. Discharge Plan Departure Patient Disposition: Home Clinical Impression: Diverticulitis Instructions: DI for Diverticulitis Activity Restrictions/Additional Instructions: *You have been diagnosed with diverticulitis *What to do: At this time recommend some bowel rest with liquid diet for 24 hours then start adding back but recommend low fiber during this flare. *Continue to take medications as directed Cipro 500 mg twice a day for 7 days Flagyl 500 mg 3 times a day for 7 days *Follow up with your primary care provider in 2-3 days or call [phone] *Return to ER if you should have increasing pain persisting bloody stools persisting fever or any new, worsening or concerning symptoms Prescriptions: New ciprofloxacin HCl [Cipro] 500 mg tablet 500 mg PO BID Qty: 14 0RF metronidazole 500 mg tablet 500 mg PO Q8H 7 Days Qty: 21 0RF No Action scopolamine base 1 mg over 3 days patch 3 day 1 patch transdermal Q3D PRN (Reason: motion sickness) Qty: 8 0RF CMP Estradiol Vaginal Cream .011% vaginal Rx Instructions: Insert 1 gram vaginally at bedtime twice weekly estradiol [Estrace] 0.01 % (0.1 mg/gram) cream 0.5 g vaginal 2XW Qty: 42.5 3RF Rx Instructions: for 14 days ondansetron 4 mg tablet,disintegrating 4 mg PO Q6H PRN (Reason: nausea and vomiting) Qty: 10 0RF levothyroxine [Synthroid] 75 mcg tablet 75 mcg PO DAILY Qty: 90 3RF lisinopril 10 mg tablet 10 mg PO BEDTIME Qty: 90 3RF atorvastatin [Lipitor] 20 mg tablet 20 mg PO HS Qty: 90 3RF diltiazem HCl [Cartia XT] 180 mg capsule,extended release 24hr 180 mg PO DAILY Qty: 90 3RF meloxicam 15 mg tablet 15 mg PO DAILY PRN (Reason: for pain) Qty: 30 1RF propylene glycol [Systane Balance] 1 drp ophthalmic (eye) BID Benefiber Sugar Free (dextrin) 3 gram/4 gram powder in packet PO Patient Comments: Powder in am with coffee Co Q-10 300 mg capsule 300 mg PO DAILY Align (B.infantis) 4 mg capsule 4 mg PO DAILY oxyquinoline-sod.lauryl sulfat 0.025-0.01 % gel 1 ea vaginal .weekly Qty: 113.4 0RF Rx Instructions: use when changing pessary cyclobenzaprine 5 mg tablet 5 mg PO BEDTIME Qty: 30 3RF glucosamine-chondroitin 900 mg tablet PO Referrals: Nando Damon MD [Primary Care Provider, Internal Medicine] Stand Alone Forms: Patient Portal/API
--- NOTE | 2025-06-12 08:30 | DI.CT.S_ITS ---
PROCEDURE: CT ABDOMEN PELVIS W CON INDICATIONS: GI bleeding with cramping TECHNIQUE: After the administration of intravenous contrast, axial sections acquired from the lung bases to the pubic symphysis. Coronal and sagittal reformats were performed. For radiation dose reduction, the following was used: automated exposure control, adjustment of mA and/or kV according to patient size. COMPARISON: [facility], CT, CT ABDOMEN PELVIS W CON, 04/19/2023, 14:17. FINDINGS: Image quality: Diagnostic. Lower Chest: No significant findings. ABDOMEN: Liver: No solid mass. Hepatic steatosis. Gallbladder: No radiopaque gallstones or wall thickening. Biliary ducts: No biliary dilation. Pancreas: No ductal dilation. Spleen: Size is within normal limits. Adrenal Glands: No adrenal nodules. Kidneys and Ureters: No hydronephrosis. No solid mass. No complex renal cystic lesion which requires follow up. Left renal cortical scarring. Multiple simple cysts and subcentimeter hypodensities which are too small to accurately characterize. Stomach and Bowel: Diverticulosis with mild inflammation surrounding the distal descending and proximal sigmoid colon, may represent early diverticulitis. There is wall thickening versus decompression of the descending and sigmoid colon. Normal appendix. No small bowel obstruction. Peritoneum: No abnormal intraperitoneal fluid. No free air. Ventral Wall: No significant ventral hernia. Abdominal Nodes: No retroperitoneal or mesenteric adenopathy by size criteria. Vessels: Aorta and inferior vena cava are normal in size. Atherosclerotic vascular calcifications. PELVIS: Pelvic Organs: Unremarkable. Bladder: No bladder wall thickening, accounting for underdistention. Pelvic Nodes: No enlarged lymph nodes. Miscellaneous: No inguinal hernias are seen. Bones: No aggressive osseous abnormality. IMPRESSION: 1. Wall thickening versus decompression of the descending and sigmoid colon may represent nonspecific colitis versus simply decompressed bowel. Mild associated inflammatory changes of the distal descending and proximal sigmoid concerning for early diverticulitis. 2. Hepatic steatosis. 3. Please see above for additional findings. Dictated by: Zach Roman M.D. on 06/12/2025 at 9:43 Approved by: Zach Roman M.D. on 06/12/2025 at 9:47
[2025-06-12 09:29] LABS: Lactate (Lactic Acid) 1.7 mmol/L (0.7-2.1)
[2025-06-12] MEDS: CIPROFLOXACIN 250 MG TABLET 500 MG PO (10:19)
== END 2025-06-12 10:28 | disposition home or self-care (01) ==
PROVIDERS: Emergency Medicine; Emergency Provider Emergency Medicine; PCP Internal Medicine
DX: K57.33 Diverticulitis of large intestine without perforation or abscess with bleeding (principal)
CPT/HCPCS: 36415; 74177; 80053; 81003; 83605; 83690; 85025; 99283; 99284; Q9967